=== PATIENT | male | born 1990 | race Caucasian/White ===

== ENCOUNTER → 2021-09-03 10:06 | Outpatient (BNVA) | payer OTHER, SELFPAY | PROVIDERS: PCP Pediatrics; Visit Provider Internal Medicine | DX: S61.011A Laceration without foreign body of right thumb without damage to nail, initial encounter (principal); W26.8XXA Contact with other sharp object(s), not elsewhere classified, initial encounter | CPT/HCPCS: 12001; 99204 ==

== ENCOUNTER → 2021-09-05 09:18 | Outpatient (BNVA) | payer OTHER, SELFPAY | PROVIDERS: PCP Pediatrics; Visit Provider Physician Assistant | DX: S61.011A Laceration without foreign body of right thumb without damage to nail, initial encounter (principal); W26.8XXA Contact with other sharp object(s), not elsewhere classified, initial encounter | CPT/HCPCS: 99202; 99213 ==

== ENCOUNTER 2021-09-09 07:12 | Day surgery (SDC) | payer OTHER, SELFPAY ==
--- NOTE | 2021-09-06 12:19 | P.CONAN_ITS ---
Documented by User: Wendy Hodgson NP 09/06/21 12:20 HPI - Anesthesia Eval Consult details Narrative: 31yo M for Right Thumb SPL Flexor Tendon Repair with digital nerve and other structures as indicated PMF Active Problems Active Problems: All Active Problems (Updated 09/05/21 @ 16:29 by Sara Almaguer PA-C) Ulnar nerve damage (Acute) Strain of flexor pollicis longus tendon (Acute) Past Medical History Medical History (Updated 09/09/21 @ 07:41 by Cathryn Marmolejo RN) Asthma Hx of renal calculi Surgical History Surgical History (Updated 09/09/21 @ 07:41 by Cathryn Marmolejo RN) Hx of esophagogastroduodenoscopy Social History Social History (Updated 09/05/21 @ 14:58 by Kathleen Healy [facility]) Patient Tobacco Use Status: Former Tobacco user Quit Date: 8 yrs ago Tobacco use type: Cigarette Use of substances other than those prescribed or required for medical reasons: Yes Substance Use Frequency: Occasionally Are you DNR?: No Advance Directives: No Advance Directives Information Provided: Yes Current occupational status: employed 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 Meds Allergies Allergy/AdvReac Type Severity Reaction Status Date / Time Penicillins Allergy Severe Shortness Verified 09/09/21 07:41 of Breath Home Medications Medication Instructions Recorded Confirmed Last Taken Type No Known Home Meds 09/05/21 09/05/21 Unknown History Exam Exam Date and Time: September 06, 2021 1219 Assessment and Plan Assessment Anesthesia Assessment: Chart Reviewed Documented by User: Elsa Perez MD 09/09/21 08:56 PMF Past Medical History Medical History (Updated 09/09/21 @ 07:41 by Cathryn Marmolejo RN) Asthma Hx of renal calculi Family History Family history of problems with anesthesia: No Surgical History Surgical History (Updated 09/09/21 @ 07:41 by Cathryn Marmolejo RN) Hx of esophagogastroduodenoscopy History of Problems with Anesthesia: No Social History Social History (Updated 09/05/21 @ 14:58 by TEODORO Bustamante) Patient Tobacco Use Status: Former Tobacco user Quit Date: 8 yrs ago Tobacco use type: Cigarette Use of substances other than those prescribed or required for medical reasons: Yes Substance Use Frequency: Occasionally Are you DNR?: No Advance Directives: No Advance Directives Information Provided: Yes Current occupational status: employed 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 Meds Allergies Allergy/AdvReac Type Severity Reaction Status Date / Time Penicillins Allergy Severe Shortness Verified 09/09/21 07:41 of Breath Home Medications Medication Instructions Recorded Confirmed Last Taken Type No Known Home Meds 09/05/21 09/05/21 Unknown History Exam Airway Mallampati Class: II TM Dist: >3cm Neck ROM: Full Heart: rrr Lungs: cta Assessment and Plan Assessment Anesthesia Assessment: Anesthesia Plan Discussed Final Anesthetic Review Family History of Problems with Anesthesia: No History of Problems with Anesthesia: No NPO: Yes ASA Class: II Final Preanesthetic Review: No Changes in Pt Med Stat, Meds/Allgs Chart Reviewed and Consent Obtained/Reviewed Patient Risk: Intermediate Procedure Risk: Intermediate Anesthetic Plan Anesthetic Plan: GA Disposition: Standard PACU
[2021-09-09] VITALS (8 sets, daily range): BP systolic 119–132; BP diastolic 71–89; PULSE 61–78; RESP 16–20; TEMP 36.3–36.8; O2SAT 95–98; BMI 36.7
[2021-09-09] MEDS: Lactated Ringers 1,000 ML 100 ML IVCONT (08:13)
--- NOTE | 2021-09-09 09:05 | MHC.SHP ---
Pre-Procedural Eval Section A Date of Service: 09/09/21 The patient is an INPATIENT: No Changes since office visit: No Cold of Flu in the past 2 weeks, No New Medical Problems, No Changes in Medication and No Patient answered all questions The History & Physical has been completed within 30 days and I have reviewed it.: Yes Section B Chief Complaint: Laceration without foreign body of right thumb Allergies: Allergies Allergy/AdvReac Type Severity Reaction Status Date / Time Penicillins Allergy Severe Shortness Verified 09/09/21 07:41 of Breath Plan I have reviewed the history and physical and performed a pertinent physical examination on my patient. No changes have occurred unless specified.
--- NOTE | 2021-09-09 09:05 | W.PM.OPN ---
Operative Note Operative Note Date of Service: 09/09/21 Narrative: Operative Note Narrative: Preop diagnosis: Right thumb laceration Postop diagnosis: Same Procedure: 1. Right thumb ulnar digital nerve neurolysis 2. Right flexor pollicis longus tenolysis Surgeon: Megan Collins MD Anesthesia: General Findings: Flexor pollicis longus tendon found to be intact. Radial digital nerve and ulnar digital nerve both found to be intact. Implants: None Tourniquet time: 18 minutes EBL: 5.0 ml Specimen: None Drains: None Complications: None Disposition: Brought to the recovery room in stable condition Plan: Follow-up in 10-14 days for wound check, suture removal Indications: The patient is a 31 year old man with a right thumb laceration, and possible injury of the flexor pollicis longus tendon and the ulnar digital nerve . The risks and benefits of operative treatment, including but not limited to risk of damage to blood vessels, nerves, tendons, infection, recurrence, persistent pain or numbness, incomplete resolution of preoperative symptoms, or need for further surgery were discussed with the patient and they wished to proceed with surgery. Procedure: Once consent was obtained patient was brought back to the operating suite and placed in the operating table in a supine position. . Perioperative antibiotics and anesthesia was administered by the anesthesia team. A tourniquet was applied to the proximal aspect of the right upper extremity and the limb was prepped and draped in a standard surgical fashion. The limb was elevated exsanguinated with Esmarch bandage and the tourniquet inflated to 250 mm of mercury for a total tourniquet time of 18 minutes. A Afia stye incision is made over the volar aspect of the patient's right thumb, incorporating the laceration into the exposure. The incision was made through the skin to the subcutaneous tissues using a 15. Blade. Careful dissection was then made down to the level of the flexor pollicis longus tendon using tenotomy scissors. The laceration was noted to pass deep to the radial digital neurovascular bundle. Radial digital nerve and artery to the thumb were both noted to be intact. I dissected down to the level of the flexor pollicis longus tendon. I then open the flexor tendon sheath obliquely using a 15. Blade. This then allowed me to fully evaluate the flexor tendon. The flexor tendon was brought through flexion and extension so that I could observe the tendon in the area of the laceration. I did not find any lacerations of the flexor pollicis longus tendon itself. My attention was then turned to the ulnar digital nerve to the thumb. I carefully performed a neurolysis. Evaluating the ulnar digital nerve through the zone of injury I did not see a laceration of the ulnar digital nerve, and it appears to be intact. At this point the tourniquet was deflated and hemostasis obtained with a brief period of local pressure and bipolar electrocautery. The wound was copiously irrigated with normal saline. The skin edges were reapproximated with 5-0 nylon suture. The wound was infiltrated with some 0.5% plain Marcaine for postop pain control and a sterile dressing was applied. The patient appears to have tolerated the procedure well and with no complications. All digits were well vascularized conclusion of the case.
== END 2021-09-09 12:22 ==
LOC: HO.SSS 07:13
PROVIDERS: PCP Nurse Practitioner Family; Visit Provider Orthopaedic Surgery
PROC: (CPT 64702; principal; 2021-09-09 09:10)
DX: S61.011A Laceration without foreign body of right thumb without damage to nail, initial encounter (principal); W27.8XXA Contact with other nonpowered hand tool, initial encounter; Y93.89 Activity, other specified; Y92.513 Shop (commercial) as the place of occurrence of the external cause; Y99.0 Civilian activity done for income or pay; J45.909 Unspecified asthma, uncomplicated; Z88.0 Allergy status to penicillin; Z87.891 Personal history of nicotine dependence
CPT/HCPCS: 64702; J1100; J2250; J2405; J3010

== ENCOUNTER → 2021-09-18 12:05 | Outpatient (BNVA) | payer OTHER, SELFPAY | PROVIDERS: PCP Nurse Practitioner Family; Visit Provider Orthopaedic Surgery | DX: S61.011D Laceration without foreign body of right thumb without damage to nail, subsequent encounter (principal); S64.40XD Injury of digital nerve of unspecified finger, subsequent encounter | CPT/HCPCS: 99212; J1100 ==

== ENCOUNTER → 2021-09-25 13:10 | Outpatient (BNVA) | payer OTHER, SELFPAY | PROVIDERS: PCP Nurse Practitioner Family; Visit Provider Orthopaedic Surgery | DX: S61.011D Laceration without foreign body of right thumb without damage to nail, subsequent encounter (principal); S64.40XD Injury of digital nerve of unspecified finger, subsequent encounter | CPT/HCPCS: 99212 ==

== ENCOUNTER 2021-10-04 13:30 | Outpatient (RCR) | payer OTHER, SELFPAY ==
--- NOTE | 2021-10-23 10:55 | MHC.OT.DC ---
[address] [phone] F: [phone] Occupational Therapy Discharge Note Provider: Megan Collins Diagnosis: Laceration to right thumb Injury to digital nerve Date of Surgery: 09/09/21 Date of Evaluation: 10/01/21 Date of Discharge: Treatments to Date: 2 Cancellations to Date: No Shows to Date: 2 Discharge Status: Visit Non-compliance Discharge Summary: Significant inc in thumb ROM , thumb radial abd 45 deg , MP flex 40 deg and IP flex 70 deg Improving pain at 3/10 and improving functional use while avoiding forceful pinch Pt has no scheduled OT appt. Electronically Signed By: Akiko Avelar OT CHT CLT Reviewed/agree with student documentation: N/A Therapist: Please Sign and return to therapist, thank you for your referral.
--- NOTE | 2021-11-08 10:29 | MHC.OT.DC ---
[address] [phone] F: [phone] Occupational Therapy Discharge Note Provider: Megan Collins Diagnosis: Laceration to right thumb Injury to digital nerve Date of Surgery: 09/09/21 Date of Evaluation: 10/01/21 Date of Discharge: Treatments to Date: 2 Cancellations to Date: No Shows to Date: 2 Discharge Status: Visit Non-compliance Discharge Summary: Significant inc in thumb ROM , thumb radial abd 45 deg , MP flex 40 deg and IP flex 70 deg Improving pain at 3/10 and improving functional use while avoiding forceful pinch Pt has no scheduled OT appt. Electronically Signed By: Akiko Avelar OT CHT CLT Reviewed/agree with student documentation: N/A Therapist: Please Sign and return to therapist, thank you for your referral.
== END 2021-11-08 10:29 | disposition home or self-care (01) ==
LOC: HO.OT 13:30
PROVIDERS: PCP Nurse Practitioner Family; Visit Provider Orthopaedic Surgery
DX: S61.011D Laceration without foreign body of right thumb without damage to nail, subsequent encounter (principal); S64.40XD Injury of digital nerve of unspecified finger, subsequent encounter
CPT/HCPCS: 97110; 97140; 97166

== ENCOUNTER → 2021-10-16 11:28 | Outpatient (BNVA) | payer OTHER, SELFPAY | PROVIDERS: PCP Nurse Practitioner Family; Visit Provider Orthopaedic Surgery | DX: S61.011D Laceration without foreign body of right thumb without damage to nail, subsequent encounter (principal); S64.490D Injury of digital nerve of right index finger, subsequent encounter | CPT/HCPCS: 99212 ==

== ENCOUNTER 2022-07-09 08:00 | Outpatient (REF) | payer OTHER, SELFPAY ==
[2022-07-09 11:22] LABS: Appearance Urine Clear; Color Urine Yellow; Glucose Urine UA Negative (Negative); Leukocyte Esterase Urine Negative (Negative); Nitrite Urine Negative (Negative); Specific Gravity - Urine 1.025 (1.005-1.025); Urine Blood Negative (Negative); Urine Ketones Negative (Negative); Urine Protein Negative (Neg-Trace)
[2022-07-09 11:24] LABS: MANUAL DIFF FLAG NO
[2022-07-09 11:43] LABS: Basophils Percent Auto 0.7 % (0-2); Eosinophils Absolute Auto 0.2 X10*3/uL (0.0-0.4); Eosinophils Percent Auto 3.8 % (0-4); Hematocrit 41.3 % (42.0-52.0); Hemoglobin 12.8 g/dl (14.0-18.0); Imm Gran Abs Auto 0.02 X10*3/uL (0.00-0.03); Imm Gran Pct Auto 0.4 % (0.0-0.4); Lymphocytes Absolute Auto 1.3 X10*3/uL (1.2-4.9); Lymphocytes Percent Auto 28.6 % (20-40); Mean Corpuscular Volume 77.3 fL (80.0-98.0); Mean Platelet Volume 10.5 fL (9.4-12.4); Monocytes Absolute Auto 0.4 X10*3/uL (0.1-1.2); Monocytes Percent Auto 8.9 % (2-11); Neutrophils Absolute Auto 2.6 x10*3/uL (2.0-8.3); Neutrophils Percent Auto 57.6 % (45-73); Platelet Count 196 X10*3/uL (160-400); Red Blood Count 5.34 X10*6/uL (4.60-5.80); Red Cell Distribution Width 18.5 % (11.0-16.0); White Blood Count 4.5 X10*3/uL (4.8-10.8)
[2022-07-09 12:12] LABS: Alanine Aminotransferase 32 U/L (0-40); Albumin Level 4.3 g/dL (3.5-5.0); Alkaline Phosphatase 81 U/L (39-117); Anion Gap 13 (12-20); Aspartate Amino Transferase 30 U/L (5-37); Bilirubin Total 0.8 mg/dL (0.0-1.0); Blood Urea Nitrogen 15 mg/dL (9-16); Calcium 9.4 mg/dL (8.4-10.2); Carbon Dioxide 27 mmol/L (22-29); Chloride 106 mmol/L (96-108); Cholesterol 189 mg/dL; Estimated Glomerular Filt Rate > 60; Glucose Fasting 104 mg/dL (60-99); HDL Cholesterol 37 mg/dL; LDL Cholesterol Calculated 121 mg/dl; Potassium 4.5 mmol/L (3.3-5.1); Sodium 141 mmol/L (135-145); TSH reflex Free T4 1.64 uIU/mL (0.32-4.0); Total Protein 6.7 g/dL (6.5-8.0); Triglycerides 158 mg/dL
== END 2022-07-09 08:01 | disposition home or self-care (01) ==
LOC: HO.HMGCLDS 08:00
PROVIDERS: PCP Nurse Practitioner Family; Visit Provider Nurse Practitioner Family
DX: Z00.00 Encounter for general adult medical examination without abnormal findings (principal); D64.9 Anemia, unspecified
CPT/HCPCS: 36415; 80053; 80061; 81003; 84443; 85025

== ENCOUNTER 2022-10-22 08:16 | Emergency (ER) | payer OTHER, SELFPAY ==
[2022-10-22 08:19] VITALS: BP 139/77; PULSE 78; RESP 18; TEMP 36.1; O2SAT 96; BMI 39.1
--- NOTE | 2022-10-22 08:47 | ED_ITS ---
HPI - General Adult General Chief complaint: Back Pain/Injury Stated complaint: lower back/ work injury Time Seen by Provider: 10/22/22 08:47 Source: patient Mode of arrival: ambulatory Limitations: no limitations History of Present Illness HPI narrative: The patient is a 32-year-old male with history of anemia presenting with right lower back pain radiating down right leg to his foot since . He states that he was lifting a transmission at work with another person and that person began to drop the transmission, the patient attempted to compensate for this and developed the back pain. He states that his pain radiates down his entire right leg to his foot. He reports intermittent numbness extending down his right leg to his foot, worse after periods of sitting. He has tried Tylenol, was told to avoid ibuprofen as he has a past history of ulcers. Has also tried alternating heat, icy hot patches with little relief. He denies any saddle anesthesia or bowel or bladder incontinence. Denies any fevers. Onset (ago): day(s) Location: back Radiation: extremity (right leg) Severity: severe Quality: burning Pain Consistency: constant Relieving factors: other (laying supine) Exacerbating factors: other (sitting) Associated symptoms: weakness and other (numbness/tingling) Treatments prior to arrival: heat therapy and other (Tylenol) Related Data Home Medications Medication Instructions Recorded Confirmed omeprazole 20 mg tablet,delayed 20 mg PO DAILY 07/08/22 release Previous Rx's Medication Instructions Recorded cyclobenzaprine 10 mg tablet 10 mg PO TID PRN muscle spasm #14 10/22/22 tabs lidocaine 5 % topical patch 1 patch topical DAILY #15 ea 10/22/22 prednisone 50 mg tablet 50 mg PO DAILY #5 tabs 10/22/22 Allergies Allergy/AdvReac Type Severity Reaction Status Date / Time Penicillins Allergy Severe Shortness Verified 10/22/22 08:23 of Breath Review of Systems Review of Systems: As per HPI Yes all other systems are reviewed and are negative Constitutional: Constitutional: Reports as per HPI PMFSH Past Medical History Medical History Asthma Hx of renal calculi Surgical History Hx of esophagogastroduodenoscopy Social History Social History Housing: Apartment Patient Tobacco Use Status: Former Tobacco user Quit Date: quit 8 years ago Tobacco use type: Cigarette e-Cigarette/Vaping Use: Never Used Second Hand Smoke Exposure: No service: No Current occupational status: employed Current occupation: [employer] Current occupational exposures/hazards: No Cognitive needs: No Hearing needs: No Vision needs: No Physical Exam ED Vital Signs: Vital Signs - 24 hr 10/22/22 08:19 Temperature 97.0 F Pulse Rate 78 Respiratory Rate 18 Blood Pressure 139/77 Pulse Oximetry 96 Oxygen Delivery Method Room Air BMI result Body Mass Index 39.1 Const General: cooperative, healthy appearing and no acute distress Orientation/consciousness: oriented to person, oriented to place, oriented to time and patient oriented x3 Limitations: no limitations HENMT Head: Yes normocephalic and Yes atraumatic Ears: external ears normal General nose exam: Normal external nose present Face and sinus: Yes face symmetric Mouth: oropharynx normal and moist mucous membranes Throat: Yes uvula midline Eyes Pupils: Equal, round and reactive pupils present Neck Neck: Yes normal visual inspection and Yes supple Resp Effort & Inspection: normal respiratory effort and able to speak in complete sentences Auscultation: clear to auscultation bilaterally Cardio Rate: regular rate Rhythm: regular rhythm Heart sounds: S1 normal heart sound present and S2 normal heart sound present GI Palpation (GI): Soft to palpation and nontender Auscultation: normoactive bowel sounds General: Yes no CVA tenderness Back/Spine/Pelvis Back: no CVA tenderness Thoracic/Lumbar Spine: thoracic and lumbar spine normal to inspection, No Thoracic/lumbar spine scar(s), No mass, pain with thoraco-lumbar ROM, paraspinal muscle tenderness on the right in the upper lumbar and in the mid lumbar, No thoracic spinal tenderness, No lumbar spinal tenderness and straight leg raise positive right at 30 degrees Pelvis: no pain with anterior-posterior compression and no pain with lateral compression Skin General skin exam: elasticity normal and turgor normal Neuro General: oriented to person, oriented to place, oriented to time, patient orient ed x3, gait normal, moves all extremities, no focal motor deficits and CN's II- XI intact bilaterally Cranial nerves: Yes Equal, round and reactive pupils present Cognition (Neuro): normal cognition Motor exam (neuro): Abnormal motor strength present right lower extremity flexion 4 / 5 and extension 4 / 5 Sensory Exam: Normal double simultaneous stimulation for sensation Extrem General: Yes full ROM, Yes no pedal edema and Yes no calf tenderness Psych Mental Status: mental status grossly normal Affect: normal affect Thought process: Normal thought process present Medical Decision Making Medical Decision Making MDM Narrative: The patient is a 32-year-old male with history of anemia presenting with right lower back pain radiating down right leg to his foot since after an injury at work. On exam patient is awake, A+Ox3, nontoxic appearing, has increased pain with ROM, no midline thoracic or lumbar spinal TTP, positive right SLR. Reported history and physical exam findings consistent with lumbar strain and radiculopathy. No red flag findings on physical exam. Unlikely cauda equina, fracture, malignancy, AAA, UTI/pyelonephritis. Given reported history, no indication for imaging at this time. Will discharge patient home with prescriptions for short course of prednisone, Flexeril, continue with Tylenol, alternate ice and heat, gentle stretching exercises. Will refer patient to the [facility]. Differential Diagnosis As above. Independent Historian Clinical information obtained from an independent historian. History obtained from or confirmed by: Spouse External Record Review External record reviewed: Inpatient record, Office record and Outpatient record Tests considered The following testing was considered but not selected: considered x-ray but given mechanism, not indicated Prescription Management I considered prescription management with: Pain Medication Discharge Plan Discharge Clinical Impression: Strain of lumbar paraspinal muscle, Radiculopathy of lumbar region Patient Disposition: Home, Self-Care Instructions: Acute Low Back Pain (ED), Lumbar Radiculopathy (ED), Lower Back Exercises (ED) Additional Instructions: You were evaluated in the emergency department today for back pain. Your evaluation did not show signs of medical conditions requiring emergent intervention at this time. We recommended that you use Tylenol 650mg every 6 hours as needed for pain. You have been prescribed a muscle relaxer which you may take every 8 hours as needed for spasms. You have been prescribed 5% topical lidocaine patches which you can wear for up to 12 hours in a 24 hour period. Do not apply heat directly over the patches. You have been prescribed prednisone which is a steroid to decrease inflammation. Please schedule an appointment for follow-up with your primary care physician this week for further evaluation of your symptoms. Return to the emergency department if you experience worsening back pain, difficulty walking, fevers, numbness, tingling, incontinence, groin numbness or tingling, or any other concerning symptoms. Prescriptions: New prednisone 50 mg tablet 50 mg PO DAILY Qty: 5 0RF lidocaine 5 % adhesive patch,medicated 1 patch topical DAILY Qty: 15 0RF Rx Instructions: leave on most painful area for up to 12 hrs cyclobenzaprine 10 mg tablet 10 mg PO TID PRN (Reason: muscle spasm) Qty: 14 0RF No Action omeprazole 20 mg tablet,delayed release (DR/EC) 20 mg PO DAILY Referrals: [facility] [Provider Group] Stand Alone Forms: Work/School Release
[2022-10-22 08:58] VITALS: BP 117/63; PULSE 63; RESP 15; TEMP 36.1; O2SAT 97
== END 2022-10-22 09:25 | disposition home or self-care (01) ==
PROVIDERS: Emergency Provider Student in an Organized Health Care Education/Training Program; PCP Nurse Practitioner Family
DX: S39.92XA Unspecified injury of lower back, initial encounter (principal); M54.50 Low back pain, unspecified; M54.16 Radiculopathy, lumbar region; X50.0XXA Overexertion from strenuous movement or load, initial encounter; Y93.9 Activity, unspecified; Y92.9 Unspecified place or not applicable; Y99.0 Civilian activity done for income or pay; Z87.891 Personal history of nicotine dependence
CPT/HCPCS: 99283; 99284

== ENCOUNTER → 2022-10-27 10:26 | Outpatient (BNVA) | payer OTHER, SELFPAY | PROVIDERS: PCP Nurse Practitioner Family; Visit Provider Physician Assistant Medical | DX: S39.012A Strain of muscle, fascia and tendon of lower back, initial encounter (principal); X50.0XXA Overexertion from strenuous movement or load, initial encounter | CPT/HCPCS: 72100; 99203; J1885 ==

== ENCOUNTER → 2022-11-06 10:24 | Outpatient (BNVA) | payer OTHER, SELFPAY | PROVIDERS: PCP Nurse Practitioner Family; Visit Provider Physician Assistant Medical | DX: S39.012D Strain of muscle, fascia and tendon of lower back, subsequent encounter (principal); X50.0XXD Overexertion from strenuous movement or load, subsequent encounter | CPT/HCPCS: 99213 ==

== ENCOUNTER → 2022-11-18 09:29 | Outpatient (BNVA) | payer OTHER, SELFPAY | PROVIDERS: PCP Nurse Practitioner Family; Visit Provider Physician Assistant Medical | DX: S39.012D Strain of muscle, fascia and tendon of lower back, subsequent encounter (principal); X50.0XXD Overexertion from strenuous movement or load, subsequent encounter; M54.16 Radiculopathy, lumbar region | CPT/HCPCS: 99213 ==

== ENCOUNTER → 2022-12-02 09:41 | Outpatient (BNVA) | payer OTHER, SELFPAY | PROVIDERS: PCP Nurse Practitioner Family; Visit Provider Physician Assistant Medical | DX: S39.012D Strain of muscle, fascia and tendon of lower back, subsequent encounter (principal); X50.0XXD Overexertion from strenuous movement or load, subsequent encounter | CPT/HCPCS: 99213 ==

== ENCOUNTER → 2022-12-18 09:44 | Outpatient (BNVA) | payer OTHER, SELFPAY | PROVIDERS: PCP Nurse Practitioner Family; Visit Provider Physician Assistant Medical | DX: S39.012D Strain of muscle, fascia and tendon of lower back, subsequent encounter (principal); X50.0XXD Overexertion from strenuous movement or load, subsequent encounter; M47.26 Other spondylosis with radiculopathy, lumbar region | CPT/HCPCS: 99213 ==

== ENCOUNTER → 2023-01-01 09:30 | Outpatient (BNVA) | payer OTHER, SELFPAY | PROVIDERS: PCP Nurse Practitioner Family; Visit Provider Physician Assistant Medical | DX: S39.012D Strain of muscle, fascia and tendon of lower back, subsequent encounter (principal); X50.0XXD Overexertion from strenuous movement or load, subsequent encounter; M51.16 Intervertebral disc disorders with radiculopathy, lumbar region | CPT/HCPCS: 99213 ==

== ENCOUNTER 2023-01-12 08:44 | Outpatient (AMB) | payer OTHER, SELFPAY ==
--- NOTE | 2023-01-12 08:51 | MHC.OFFVIS ---
Intake Vital Signs 01/12/23 08:52 Height 6 ft 5 in Weight 338 lb BMI 40.1 BP 134/81 Blood Pressure Location Lt brachial Position Sitting Respiration 14 Pulse 85 Pulse Source Pulse Oximeter Pulse Oximetry (%) 95 Oxygen Delivery Method Room Air Intake Visit Reasons: Lumbar Strain w/ Radiculopathy Allergies Penicillins Allergy (Severe, Verified 01/12/23 08:53) Shortness of Breath Medication List - Last Reconciled 01/12/23 by Carleen Pabon LPN gabapentin 100 mg PO TID 15 days indomethacin 50 mg PO BID omeprazole 20 mg PO DAILY HPI Lumbar Strain w/ Radiculopathy HPI Details 32-year-old male presenting today for a new patient evaluation of lumbar strain with radiculopathy. The patient reports right lower back pain radiating down his right leg to his foot since 10/16/22. He states that he was lifting a heavy weight at work with another person, and that person began to drop the weight. The patient attempted to compensate for this, felt a pop and developed sudden onset mid to low back pain. He states that his pain radiates down his entire right leg to his foot. The pain is described as constant stabbing sensation all day long and there is burning and numbness in his right buttock and thigh along with pins and needles in his right foot. Weather changes and movements make the pain worse. 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 He has tried Tylenol and was told to avoid ibuprofen as he has a past history of ulcers. Has also tried alternating heat and icy hot patches with little relief. He has had more than 12 sessions of physical therapy without any relief. He denies any saddle anesthesia or bowel or bladder incontinence. The patient has been gaining weight over the past few years due to improper diet and decreased physical activities. [facility] Medical History Asthma Hx of renal calculi Surgical History Hx of esophagogastroduodenoscopy Social History Housing: Apartment Alcohol intake: never Patient Tobacco Use Status: Former Tobacco user Quit Date: quit 8 years ago Tobacco use type: Cigarette e-Cigarette/Vaping Use: Never Used Second Hand Smoke Exposure: No service: No Current occupational status: employed Current occupation: [employer] Current occupational exposures/hazards: No Cognitive needs: No Hearing needs: No Vision needs: No Review of Systems Const All systems reviewed & are unremarkable except as noted in HPI and below Physical Exam Vital Signs: Last Vital Signs Pulse 85 01/12/23 08:52 Resp 14 01/12/23 08:52 BP 134/81 01/12/23 08:52 Pulse Ox 95 01/12/23 08:52 Oxygen Delivery Method Room Air 01/12/23 08:52 BMI result Body Mass Index 40.1 General: Appears afebrile. Alert and oriented. Mood and affect appropriate. Follows and participates in conversation appropriately. Respiratory effort is unlabored. Able to transition from sit to stand unassisted. Ambulates with bilaterally normal heel strike and toe off. Able to stand on toes and heels. Results Reviewed Results Reviewed: 12/11/22: MR LUMBAR SPINE W/O CONTRAST. FINDINGS: The conus medullaris has a normal caliber and signal intensities. The lumbar alignment is normal. No vertebral body fracture is seen. The bone marrow signals are within normal limits. T12-L1 to L2-L3 levels are normal. L3-L4 level has a small central to right extruded disc with superior migration. Mild stenosis without nerve root compression. The facet joints are mildly degenerative. No neural foramen narrowing. L4-L5 level has partial disc desiccation and a small broad-based central herniated disc. This causes mild stenosis abutting bilateral L5 nerve roots. Bilateral ligamentum flavum and facet joints are mildly hypertrophic. There is minimal bilateral neural foramen narrowing. L5-S1 level has partial disc desiccation and mild disc space narrowing. There is a small broad-based left paracentral disc protrusion. This causes mild left lateral recess stenosis impinging upon the left S1 nerve root. There is mild degenerative facet arthropathy bilaterally. No right and mild left neuroforaminal narrowing. The visualized abdominal aorta and kidneys are unremarkable. IMPRESSION: Spondylosis of lower lumbar spine as described above. Assessment & Plan Assessment & Plan (1) Lumbar radiculitis: Code(s): M54.16 - Radiculopathy, lumbar region Plan We reviewed the imaging today in the office along with strategies for rehabilitation and pain relief over the short and long terms for his ongoing intervertebral degenerative disc disease. We will proceed with Right L3 TFESI for temporary symptomatic relief of his current symptoms. Discussed the risks and benefits of the procedure with the patient in detail. All questions were answered. The patient is on board with the plan. Justification for interventional therapy: ? Patient with average pain > 6/10 ? Patient has exhausted conservative therapy including gabapentin, Tylenol, NSAIDs and physical therapy ? Patient continuing home exercise program For the time being, I encouraged him to continue with swimming and core strengthening exercises at home. Scribed for Dr. Huitron by Shaggy Thompson, medical clerk, on 01/12/2023. I, Dr. Huitron, have personally reviewed and agree with the information entered by the scribe. Coding Level of Care Code New Pt Level 4 (34929) Diagnoses Lumbar radiculitis M54.16
[2023-01-12 08:52] VITALS: BP 134/81; PULSE 85; RESP 14; O2SAT 95; BMI 40.1
== END 2023-01-12 09:38 | disposition home or self-care (01) ==
PROVIDERS: PCP Nurse Practitioner Family; Visit Provider Internal Medicine
DX: M54.16 Radiculopathy, lumbar region (principal); Z04.2 Encounter for examination and observation following work accident
CPT/HCPCS: 99204

== ENCOUNTER → 2023-01-12 08:44 | Outpatient (BNVA) | payer OTHER, SELFPAY | PROVIDERS: PCP Nurse Practitioner Family; Visit Provider Internal Medicine | DX: M54.16 Radiculopathy, lumbar region (principal) | CPT/HCPCS: 99202 ==

== ENCOUNTER → 2023-01-22 08:18 | Outpatient (BNVA) | payer OTHER, SELFPAY | PROVIDERS: PCP Nurse Practitioner Family; Visit Provider Physician Assistant Medical | DX: M54.16 Radiculopathy, lumbar region (principal) | CPT/HCPCS: 99213 ==

== ENCOUNTER 2023-02-11 06:01 | Outpatient (REF) | payer OTHER, SELFPAY ==
--- NOTE | ~2023-02-11 | FL_ITS ---
CLINICAL INDICATION: Lumbar radiculopathy. FINDINGS: Technical assistance and equipment were provided by the Department of Radiology during intraoperative fluoroscopy. 2, limited fluoroscopic spot images are submitted. A radiologist was not present during the procedure. Images demonstrate the tip of a percutaneous needle to project over the region of the lumbar facet or nerve root. Contrast is injected. The images are available for review on PACS. TOTAL FLUOROSCOPY TIME: 0.4 minutes. DOSE AREA PRODUCT: 0.09 mGy-m2 (milligray-meter squared) FL/FL guidance in treatment room IMPRESSION: Technical assistance and equipment provided by the Department of Radiology during intraoperative fluoroscopy, as above. Please see operative report for further details.
== END 2023-02-11 06:02 | disposition home or self-care (01) ==
LOC: CF 06:01
PROVIDERS: Visit Provider Internal Medicine
DX: M54.16 Radiculopathy, lumbar region (principal)
CPT/HCPCS: 64483; J1100

== ENCOUNTER 2023-02-11 09:18 | Outpatient (AMB) | payer OTHER, SELFPAY ==
[2023-02-11 09:25] VITALS: BP 126/76; PULSE 80; RESP 14; O2SAT 97
--- NOTE | 2023-02-11 09:25 | MHC.OFFVIS ---
Intake Vital Signs 02/11/23 09:25 BP 126/76 Blood Pressure Location Lt brachial Position Sitting Respiration 14 Pulse 80 Pulse Source Pulse Oximeter Pulse Oximetry (%) 97 Oxygen Delivery Method Room Air Intake Visit Reasons: right L3 TFESI Allergies Penicillins Allergy (Severe, Verified 02/11/23 09:26) Shortness of Breath HPI right L3 TFESI HPI Details Patient presents for scheduled procedure. Denies any recent cough, cold, infection, fever or other significant changes in medical history since last office visit. PFSH Medical History Asthma Hx of renal calculi Surgical History Hx of esophagogastroduodenoscopy Social History Housing: Apartment Alcohol intake: never Patient Tobacco Use Status: Former Tobacco user Quit Date: quit 8 years ago Tobacco use type: Cigarette e-Cigarette/Vaping Use: Never Used Second Hand Smoke Exposure: No service: No Current occupational status: employed Current occupation: [employer] Current occupational exposures/hazards: No Cognitive needs: No Hearing needs: No Vision needs: No Physical Exam Vital Signs: Last Vital Signs Pulse 80 02/11/23 09:25 Resp 14 02/11/23 09:25 BP 126/76 02/11/23 09:25 Pulse Ox 97 02/11/23 09:25 Oxygen Delivery Method Room Air 02/11/23 09:25 Office Procedures Details: Transforaminal epidural steroid injection, Right L3 After obtaining written consent, pre-procedure blood pressure and heart rate were stable and recorded in the nursing record. The patient was placed in the prone position on the fluoroscopy table. The lumbosacral area was prepped with chloraprep, allowed to dry and draped in sterile fashion. Using fluoroscopy, the skin overlying our target was anesthetized with 0.5% lidocaine. A 22 gauge 5 inch spinal needle was advanced to the safe triangle in the upper pole of the right L3 foramen. No paresthesias were elicited with needle placement and aspiration was negative for blood and CSF. Correct needle position was confirmed with approximately 1 ml contrast dye (Isovue 300 mg/ml) injected under real-time fluoroscopy. No evidence of vascular or intrathecal uptake was seen and there was both epidural and peripheral spread of the contrast agent. 10 mg dexamethasone plus 1.5 ml containing 0.5% lidocaine was slowly injected. The needle was flushed and removed. the same procedure was repeated for the remaining levels. The skin was cleansed and a sterile bandages were applied. The patient tolerated the procedure well and no complications were encountered. Following the procedure the patient's vital signs were stable. The patient was discharged home in good condition with post-procedural instructions. Time Out: Immediately prior to the procedure, the following was verbally confirmed that there is a signed consent form and that the correct patient, planned procedure, site and side are consistent with documentation and that necessary equipment and/or blood products are available prior to the start of the case. Complications: none EBL: <5 cc 62582 - Lumbar/Sacral Procedure code (CPT) selection complete Assessment & Plan Assessment & Plan (1) Lumbar radiculitis: Code(s): M54.16 - Radiculopathy, lumbar region Plan Patient is status post right L3 TFESI. Patient tolerated procedure well and was discharged home in stable condition with discharge instructions. All questions were answered. We will follow-up via telephone or in clinic to assess response to therapy. A follow-up appointment was made during today's visit. Orders: Orders FL guidance in treatment room Today M54.16 - Radiculopathy, lumbar region Coding Level of Care Code Procedure Only Diagnoses Lumbar radiculitis M54.16 CPT Codes Transforaminal Epidural Steroid Inj - TESI 3: 09188 - Lumbar/Sacral ([id number])
== END 2023-02-11 10:06 | disposition home or self-care (01) ==
LOC: HO.PMCPRC 09:18
PROVIDERS: PCP Nurse Practitioner Family; Visit Provider Internal Medicine
DX: M54.16 Radiculopathy, lumbar region (principal)
CPT/HCPCS: 64483

== ENCOUNTER → 2023-02-23 08:01 | Outpatient (BNVA) | payer OTHER, SELFPAY | PROVIDERS: PCP Nurse Practitioner Family; Visit Provider Physician Assistant Medical | DX: M54.16 Radiculopathy, lumbar region (principal); M51.26 Other intervertebral disc displacement, lumbar region | CPT/HCPCS: 99213 ==

== ENCOUNTER 2023-03-13 07:56 | Outpatient (AMB) | payer OTHER, SELFPAY ==
--- NOTE | 2023-03-13 07:57 | MHC.OFFVIS ---
Intake Vital Signs 03/13/23 07:59 Height 6 ft 5 in Weight 262 lb BMI 31.1 BP 129/74 Blood Pressure Location Lt brachial Position Sitting Respiration 14 Pulse 76 Pulse Source Pulse Oximeter Pulse Oximetry (%) 95 Oxygen Delivery Method Room Air Intake Visit Reasons: s/p Right L3 TFESI Allergies Penicillins Allergy (Severe, Verified 03/13/23 08:00) Shortness of Breath Medication List - Last Reconciled 03/13/23 by Carleen Pabon LPN gabapentin 100 mg orally take 1 tab in am, 1 tab mid day and 2 tabs at bed 30 days omeprazole 20 mg PO DAILY HPI s/p Right L3 TFESI HPI Details 32-year-old male who presents today to the office for a status post right L3 TFESI. The patient reports resolution of his leg pain. He states that the burning sensations in his buttocks and thighs were resolved. He states that his back pain continues to be bothersome. He has started following up with his chiropractor three times a week, with moderate benefit. He has completed 12 sessions of physical therapy in the past. He continues to perform physical therapy exercises at home. Past procedure: 02/11/23: Transforaminal epidural steroid injection, Right L3: Resolution of leg pain and symptoms, persistent back pain PFSH Medical History Asthma Hx of renal calculi Surgical History Hx of esophagogastroduodenoscopy Social History Housing: Apartment Alcohol intake: never Patient Tobacco Use Status: Former Tobacco user Quit Date: quit 8 years ago Tobacco use type: Cigarette e-Cigarette/Vaping Use: Never Used Second Hand Smoke Exposure: No service: No Current occupational status: employed Current occupation: [employer] Current occupational exposures/hazards: No Cognitive needs: No Hearing needs: No Vision needs: No Review of Systems Const All systems reviewed & are unremarkable except as noted in HPI and below Physical Exam Vital Signs: Last Vital Signs Pulse 76 03/13/23 07:59 Resp 14 03/13/23 07:59 BP 129/74 03/13/23 07:59 Pulse Ox 95 03/13/23 07:59 Oxygen Delivery Method Room Air 03/13/23 07:59 BMI result Body Mass Index 31.1 General: Appears afebrile. Alert and oriented. Mood and affect appropriate. Follows and participates in conversation appropriately. Respiratory effort is unlabored. Able to transition from sit to stand unassisted. Ambulates with bilaterally normal heel strike and toe off. Results Reviewed Results Reviewed: No imaging is available for review. Assessment & Plan Assessment & Plan (1) Lumbar radiculitis: Code(s): M54.16 - Radiculopathy, lumbar region Plan I encouraged the patient to continue home exercises, including core strengthening and stretching exercises. The patient will continue with chiropractic therapy. If pain continues to persist or worsen, we can repeat the same injection again. If axial low back pain continues to be his primary complaint, we can consider facet interventions in the future for possible spondylosis related pain. The patient will follow up as needed. Scribed for Dr. Huitron by Shaggy Thompson, medical officer, on 03/13/2023. I, Dr. Huitron, have personally reviewed and agree with the information entered by the scribe. Coding Level of Care Code Est Pt Level 3 (48611) Diagnoses Lumbar radiculitis M54.16
[2023-03-13 07:59] VITALS: BP 129/74; PULSE 76; RESP 14; O2SAT 95; BMI 31.1
== END 2023-03-13 08:58 | disposition home or self-care (01) ==
PROVIDERS: PCP Nurse Practitioner Family; Visit Provider Internal Medicine
DX: M54.16 Radiculopathy, lumbar region (principal)
CPT/HCPCS: 99213

== ENCOUNTER → 2023-03-13 07:56 | Outpatient (BNVA) | payer OTHER, SELFPAY | PROVIDERS: PCP Nurse Practitioner Family; Visit Provider Internal Medicine | DX: M54.16 Radiculopathy, lumbar region (principal); Z98.890 Other specified postprocedural states | CPT/HCPCS: 99212 ==

== ENCOUNTER → 2023-03-19 07:54 | Outpatient (BNVA) | payer OTHER, SELFPAY | PROVIDERS: PCP Nurse Practitioner Family; Visit Provider Physician Assistant Medical | DX: M54.16 Radiculopathy, lumbar region (principal); M51.26 Other intervertebral disc displacement, lumbar region | CPT/HCPCS: 99213 ==

== ENCOUNTER → 2023-04-02 07:54 | Outpatient (BNVA) | payer OTHER, SELFPAY | PROVIDERS: PCP Nurse Practitioner Family; Visit Provider Physician Assistant Medical | DX: M54.16 Radiculopathy, lumbar region (principal); M51.26 Other intervertebral disc displacement, lumbar region | CPT/HCPCS: 99213 ==

== ENCOUNTER → 2023-04-21 09:13 | Outpatient (BNVA) | payer OTHER, SELFPAY | PROVIDERS: PCP Nurse Practitioner Family; Visit Provider Physician Assistant Medical | DX: M54.16 Radiculopathy, lumbar region (principal); M51.26 Other intervertebral disc displacement, lumbar region | CPT/HCPCS: 99213 ==

== ENCOUNTER → 2023-05-04 08:26 | Outpatient (BNVA) | payer OTHER, SELFPAY | PROVIDERS: PCP Nurse Practitioner Family; Visit Provider Internal Medicine | DX: M51.27 Other intervertebral disc displacement, lumbosacral region (principal) | CPT/HCPCS: 99213 ==

== ENCOUNTER 2023-05-08 08:43 | Outpatient (AMB) | payer OTHER, SELFPAY ==
[2023-05-08 08:51] VITALS: RESP 12; BMI 30.2
--- NOTE | 2023-05-08 08:51 | A.OFFVIS_ITS ---
Intake Vital Signs 05/08/23 08:51 Height 6 ft 5 in Weight 255 lb BMI 30.2 Blood Pressure Location Lt brachial Position Sitting Respiration 12 Pulse Source Pulse Oximeter Intake Visit Reasons: WC requiring visit for TFESI Allergies Penicillins Allergy (Severe, Verified 05/08/23 08:52) Shortness of Breath Medication List - Last Reconciled 05/08/23 by Carleen Pabon LPN omeprazole 20 mg PO DAILY HPI WC requiring visit for TFESI HPI Details 32-year-old male who presents today to t he office for a follow-up. The patient has been experiencing right-sided low back pain. While his leg pain resolved after the injection, his back pain did not improve. He has mild subjective right leg weakness but denies any pain. He denies any numbness or paresthesia that was present prior to the injection. He has been performing strengthening and stretching exercises at home. Pain today is described as present in the right mid to low back region. It is constant. Always at least 4/10 and sometimes exacerbated. It limits his activities. Past procedure: 02/11/23: Transforaminal epidural steroid injection, Right L3: Resolution of leg pain and symptoms, persistent back pain PFSH Medical History Asthma Hx of renal calculi Surgical History Hx of esophagogastroduodenoscopy Social History Housing: Apartment Alcohol intake: never Patient Tobacco Use Status: Former Tobacco user Quit Date: quit 8 years ago Tobacco use type: Cigarette e-Cigarette/Vaping Use: Never Used Second Hand Smoke Exposure: No service: No Current occupational status: employed Current occupation: [employer] Current occupational exposures/hazards: No Cognitive needs: No Hearing needs: No Vision needs: No Review of Systems Const All systems reviewed & are unremarkable except as noted in HPI and below Physical Exam Vital Signs: Last Vital Signs Resp 12 05/08/23 08:51 BMI result Body Mass Index 30.2 General: Appears afebrile. Alert and oriented. Mood and affect appropriate. Follows and participates in conversation appropriately. Respiratory effort is unlabored. Able to transition from sit to stand unassisted. Ambulates with bilaterally normal heel strike and toe off. Forward lumbar flexion reproduces pain and tightness. Lumbar extension is extremely limited. Facet loading on the right reproduces pain. Results Reviewed Results Reviewed: MRI reviewed once again. Shows [id number] facet arthritis at L3-4 and L4-5 levels. Assessment & Plan Assessment & Plan (1) Lumbar spondylosis: Code(s): M47.816 - Spondylosis without myelopathy or radiculopathy, lumbar region (2) Intractable low back pain: Code(s): M54.59 - Other low back pain Plan Discussed diagnostic facet block to isolate the source of his current right- sided mid/low back pain. Will schedule him for a right L2 and L3 medial branch nerve block injection with local anesthetic only as the next step. Discussed the risks and benefits of the procedure with the patient in detail. All questions were answered. The patient is on board with the plan. Informed the patient that insurance approval is required. We will file a PA for approval and keep him updated. If he has a positive response to the diagnostic injection, I would like him to trial peripheral nerve stimulation of the same nerves for longer-term relief. Justification for interventional therapy: ? Patient with average pain > 5/10 ? Patient has exhausted conservative therapy ? Patient continuing home exercise program . History and physical consistent with facetogenic pain Scribed for Dr. Huitron by Shaggy Thompson, biomedical analytical scientist, on 05/08/2023. I, Dr. Huitron, have personally reviewed and agree with the information entered by the scribe. Coding Level of Care Code Est Pt Level 4 (29457) Diagnoses Lumbar spondylosis M47.816 Intractable low back pain M54.59
== END 2023-05-08 09:14 | disposition home or self-care (01) ==
PROVIDERS: PCP Nurse Practitioner Family; Visit Provider Internal Medicine
DX: M47.816 Spondylosis without myelopathy or radiculopathy, lumbar region (principal); M54.59 Other low back pain
CPT/HCPCS: 99214

== ENCOUNTER → 2023-05-08 08:43 | Outpatient (BNVA) | payer OTHER, SELFPAY | PROVIDERS: PCP Nurse Practitioner Family; Visit Provider Internal Medicine | DX: M47.816 Spondylosis without myelopathy or radiculopathy, lumbar region (principal); M54.59 Other low back pain | CPT/HCPCS: 99212 ==

== ENCOUNTER → 2023-05-18 08:00 | Outpatient (BNVA) | payer OTHER, SELFPAY | PROVIDERS: PCP Nurse Practitioner Family; Visit Provider Internal Medicine | DX: M51.26 Other intervertebral disc displacement, lumbar region (principal) | CPT/HCPCS: 99213 ==

== ENCOUNTER → 2023-05-27 08:01 | Outpatient (BNVA) | payer OTHER, SELFPAY | PROVIDERS: PCP Nurse Practitioner Family; Visit Provider Internal Medicine | DX: M51.16 Intervertebral disc disorders with radiculopathy, lumbar region (principal) | CPT/HCPCS: 99213 ==

== ENCOUNTER 2023-06-17 05:41 | Outpatient (REF) | payer OTHER, SELFPAY ==
--- NOTE | ~2023-06-17 | FL_ITS ---
CLINICAL INDICATION: Back pain and radiculopathy. FINDINGS: Technical assistance and equipment were provided by the Department of Radiology during intraoperative fluoroscopy for percutaneous injection. 1, limited fluoroscopic spot image is submitted. A radiologist was not present during the procedure. The image demonstrates the tips of percutaneous needles to project lateral to right lumbar pedicles. It is difficult to ascertain the exact levels due to disc incomplete anatomical landmarks on the image submitted. Contrast has been injected. The image is available for review on PACS. TOTAL FLUOROSCOPY TIME: 0.1 minutes. DOSE AREA PRODUCT: 0.1 mGy-m2 (milligray-meter squared) FL/FL guidance in treatment room IMPRESSION: Technical assistance and equipment provided by the Department of Radiology during intraoperative fluoroscopy, as above. Please see operative report for further details.
== END 2023-06-17 05:42 | disposition home or self-care (01) ==
LOC: CF 05:41
PROVIDERS: Visit Provider Internal Medicine
DX: M47.816 Spondylosis without myelopathy or radiculopathy, lumbar region (principal); M54.59 Other low back pain
CPT/HCPCS: 64493; J2795; Q9967

== ENCOUNTER 2023-06-17 07:20 | Outpatient (AMB) | payer OTHER, SELFPAY ==
[2023-06-17 07:26] VITALS: BP 118/60; PULSE 76; RESP 12; O2SAT 96
--- NOTE | 2023-06-17 07:26 | A.OFFVIS_ITS ---
Intake Vital Signs 06/17/23 07:26 06/17/23 08:12 BP 118/60 120/72 Blood Pressure Location Lt brachial Lt radial Position Sitting Sitting Respiration 12 12 Pulse 76 83 Pulse Source Pulse Oximeter Pulse Oximeter Pulse Oximetry (%) 96 96 Oxygen Delivery Method Room Air Room Air Intake Visit Reasons: Right Dx L2-L3 MBB Allergies Penicillins Allergy (Severe, Verified 06/17/23 07:26) Shortness of Breath HPI Right Dx L2-L3 MBB HPI Details Patient presents for scheduled procedure. Denies any recent cough, cold, infection, fever or other significant changes in medical history since last office visit. [facility] Medical History Asthma Hx of renal calculi Surgical History Hx of esophagogastroduodenoscopy Social History Housing: Apartment Alcohol intake: never Patient Tobacco Use Status: Former Tobacco user Quit Date: quit 8 years ago Tobacco use type: Cigarette e-Cigarette/Vaping Use: Never Used Second Hand Smoke Exposure: No service: No Current occupational status: employed Current occupation: [employer] Current occupational exposures/hazards: No Cognitive needs: No Hearing needs: No Vision needs: No Physical Exam Vital Signs: Last Vital Signs Pulse 83 06/17/23 08:12 Resp 12 06/17/23 08:12 BP 120/72 06/17/23 08:12 Pulse Ox 96 06/17/23 08:12 Oxygen Delivery Method Room Air 06/17/23 08:12 Office Procedures Lumbar/Sacral Facet Inj Details: Lumbar Medial Branch Block, Right L2, L3 medial branches (1 level, 2 nerves) After obtaining written consent, pre-procedure blood pressure and pulse were recorded and are in the nursing record for review. The patient was placed in a prone position. The respective lumbosacral area was prepped with chloraprep and draped in sterile fashion. The skin over the target medial branch nerves was anesthetized with 0.5% lidocaine. A 22 gauge 5 inch needle was inserted into the target medial branch nerve under fluoroscopic guidance. No paresthesias were elicited with needle placement and aspiration was negative for blood and CSF. Next, 0.2cc of omnipaque 180 was injected to verify positioning. Next 0.5 ml 0.5% ropivicaine was injected (0.5cc total per level). The identical procedure was performed at the remaining levels. The skin was cleansed and a sterile bandage was applied. Following the procedure the patient's vital signs were stable. The patient tolerated the procedure well and no complications were encountered. Following the procedure the patient's vital signs were stable. The patient was discharged home in good condition with post-procedural instructions. Time Out: Immediately prior to the procedure, the following was verbally confirmed that there is a signed consent form and that the correct patient, planned procedure, site and side are consistent with documentation and that necessary equipment and/or blood products are available prior to the start of the case. Complications: none EBL: <5 cc 98309 - with Fluoroscopy Procedure code (CPT) selection complete Assessment & Plan Assessment & Plan (1) Intractable low back pain: Code(s): M54.59 - Other low back pain (2) Lumbar spondylosis: Code(s): M47.816 - Spondylosis without myelopathy or radiculopathy, lumbar region Plan Patient is status post right L2 and L3 diagnostic MBBs. Patient tolerated procedure well and was discharged home in stable condition with discharge instructions. All questions were answered. We will follow-up via telephone or in clinic to assess response to therapy. A follow-up appointment was made during today's visit. Orders: Orders FL guidance in treatment room Today M47.816 - Spondylosis without myelopathy or radiculopathy, lumbar region Coding Level of Care Code Procedure Only Diagnoses Intractable low back pain M54.59 Lumbar spondylosis M47.816 CPT Codes Facet Injection-Lumbar/Sacral - CPT: 04338 - with Fluoroscopy ([id number])
[2023-06-17 08:12] VITALS: BP 120/72; PULSE 83; RESP 12; O2SAT 96
== END 2023-06-17 08:08 | disposition home or self-care (01) ==
LOC: HO.PMCPRC 07:20
PROVIDERS: PCP Nurse Practitioner Family; Visit Provider Internal Medicine
DX: M54.59 Other low back pain (principal); M47.816 Spondylosis without myelopathy or radiculopathy, lumbar region

== ENCOUNTER 2023-06-19 08:52 | Outpatient (AMB) | payer OTHER, SELFPAY ==
--- NOTE | 2023-06-19 08:53 | MHC.OFFVIS ---
Intake Vital Signs 06/19/23 08:55 Height 6 ft 5 in Weight 264 lb BMI 31.3 BP 130/67 Blood Pressure Location Lt brachial Position Sitting Respiration 12 Pulse 69 Pulse Source Pulse Oximeter Intake Visit Reasons: s/p Right L2-L3 MBB/confirmed Allergies Penicillins Allergy (Severe, Verified 06/19/23 08:56) Shortness of Breath Medication List - Last Reconciled 06/19/23 by Carleen Pabon LPN omeprazole 20 mg PO DAILY HPI s/p Right L2-L3 MBB/confirmed HPI Details 32-year-old male who presents today to the office for a status post right L2-L3 MBB. The patient reports >75% relief following the procedure. He has noticed significant improvement in his pain. He is able to lay down on the bed or sit in the normal position for prolonged period of time. He has mild pain with bending down. Past procedures: 06/17/23: Lumbar Medial Branch Block, Right L2, L3 medial branches (1 level, 2 nerves): >75% relief. 02/11/23: Transforaminal epidural steroid injection, Right L3: Resolution of leg pain and symptoms, persistent back pain PFSH Medical History Asthma Hx of renal calculi Surgical History Hx of esophagogastroduodenoscopy Social History Housing: Apartment Alcohol intake: never Patient Tobacco Use Status: Former Tobacco user Quit Date: quit 8 years ago Tobacco use type: Cigarette e-Cigarette/Vaping Use: Never Used Second Hand Smoke Exposure: No service: No Current occupational status: employed Current occupation: [employer] Current occupational exposures/hazards: No Cognitive needs: No Hearing needs: No Vision needs: No Review of Systems Const All systems reviewed & are unremarkable except as noted in HPI and below Physical Exam Vital Signs: Last Vital Signs Pulse 69 06/19/23 08:55 Resp 12 06/19/23 08:55 BP 130/67 06/19/23 08:55 BMI result Body Mass Index 31.3 General: Appears afebrile. Alert and oriented. Mood and affect appropriate. Follows and participates in conversation appropriately. Respiratory effort is unlabored. Able to transition from sit to stand unassisted. Ambulates with bilaterally normal heel strike and toe off. Results Reviewed Results Reviewed: No imaging is available for review. Assessment & Plan Assessment & Plan (1) Lumbar spondylosis: Code(s): M47.816 - Spondylosis without myelopathy or radiculopathy, lumbar region (2) Intractable low back pain: Code(s): M54.59 - Other low back pain Plan 32-year-old male with a work related injury with subsequent lumbar radiculitis that responded well to a transforaminal epidural steroid injection. He continued to have residual intractable low back pain that was not responsive to physical therapy, stretching and strengthening routine at home and transforaminal epidural steroid injection. He had an excellent diagnostic response to lumbar facet blocks at L2 and L3. 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 I would like to proceed with a course of temporary peripheral L2 medial branch nerve stimulation therapy on the right. I do not think his pain is degenerative in nature, which is why radiofrequency ablation may not be the most optimal therapy for his symptoms. I would like him to continue with a rehabilitative paradigm including physical therapy, home exercise program and restorative stimulation of the lumbar medial branch in the affected region and the associated multifidi. Patient expressed understanding and is on board with the plan Justification for interventional therapy: ? Patient with average pain > 5/10 ? Patient has exhausted conservative therapy ? Patient continuing home exercise program . History and physical consistent with intractable low back pain secondary to facetogenic pain Scribed for Dr. Huitron by Shaggy Thompson, durable medical equipment technician, on 06/19/2023. I, Dr. Huitron, have personally reviewed and agree with the information entered by the scribe. Coding Level of Care Code Est Pt Level 3 (05585) Diagnoses Lumbar spondylosis M47.816 Intractable low back pain M54.59
[2023-06-19 08:55] VITALS: BP 130/67; PULSE 69; RESP 12; BMI 31.3
== END 2023-06-19 09:11 | disposition home or self-care (01) ==
PROVIDERS: PCP Nurse Practitioner Family; Visit Provider Internal Medicine
DX: M47.816 Spondylosis without myelopathy or radiculopathy, lumbar region (principal); M54.59 Other low back pain
CPT/HCPCS: 99213

== ENCOUNTER → 2023-06-19 08:52 | Outpatient (BNVA) | payer OTHER, SELFPAY | PROVIDERS: PCP Nurse Practitioner Family; Visit Provider Internal Medicine | DX: M47.816 Spondylosis without myelopathy or radiculopathy, lumbar region (principal); M54.59 Other low back pain | CPT/HCPCS: 99212 ==

== ENCOUNTER → 2023-06-24 08:47 | Outpatient (BNVA) | payer OTHER, SELFPAY | PROVIDERS: PCP Nurse Practitioner Family; Visit Provider Internal Medicine | DX: M51.26 Other intervertebral disc displacement, lumbar region (principal) | CPT/HCPCS: 99213 ==

== ENCOUNTER → 2023-07-22 09:30 | Outpatient (BNVA) | payer OTHER, SELFPAY | PROVIDERS: PCP Nurse Practitioner Family; Visit Provider Internal Medicine | DX: M51.26 Other intervertebral disc displacement, lumbar region (principal) | CPT/HCPCS: 99213 ==

== ENCOUNTER → 2023-08-12 08:07 | Outpatient (BNVA) | payer OTHER, SELFPAY | PROVIDERS: PCP Nurse Practitioner Family; Visit Provider Internal Medicine | DX: M51.26 Other intervertebral disc displacement, lumbar region (principal) | CPT/HCPCS: 99213 ==

== ENCOUNTER → 2023-09-11 08:14 | Outpatient (BNVA) | payer OTHER, SELFPAY | PROVIDERS: PCP Nurse Practitioner Family; Visit Provider Internal Medicine | DX: M54.41 Lumbago with sciatica, right side (principal) | CPT/HCPCS: 99213 ==

== ENCOUNTER 2023-10-02 09:17 | Outpatient (AMB) | payer OTHER, SELFPAY ==
--- NOTE | 2023-10-02 09:23 | MHC.OFFVIS ---
Vital Signs 10/02/23 09:25 Height 6 ft 5 in Weight 375 lb BMI 44.5 BP 147/98 H Blood Pressure Location Lt radial Position Sitting Respiration 14 Pulse 106 H Pulse Source Pulse Oximeter Pulse Oximetry (%) 96 Oxygen Delivery Method Room Air Intake Visit Reasons: workers comp Allergies Penicillins Allergy (Severe, Verified 10/02/23 09:26) Shortness of Breath Medication List - Last Reconciled 10/02/23 by Carleen Pabon LPN gabapentin 100 mg PO .4x daily omeprazole 20 mg PO DAILY HPI HPI workers comp : Details: 33-year-old male who presents today to the office for follow-up. His worker's comp denied right lumbar PNS medial branch stimulator therapy. We filed an appeal for sprint which was also denied. He is here to discuss different treatment options with us today. He continues to have significant axial low back pain. He does report significant relief from the diagnostic lumbar facet blocks for more than 2 weeks. He is interested in repeating them to establish reproducibility for consideration of potential radiofrequency ablation of lumbar medial branch nerves. Past procedures: 06/17/23: Lumbar Medial Branch Block, Right L2, L3 medial branches (1 level, 2 nerves): >75% relief. 02/11/23: Transforaminal epidural steroid injection, Right L3: Resolution of leg pain and symptoms, persistent back pain PFSH Medical History Asthma Hx of renal calculi Surgical History Hx of esophagogastroduodenoscopy Social History Housing: Apartment Alcohol intake: never Patient Tobacco Use Status: Former Tobacco user Quit Date: quit 8 years ago Tobacco use type: Cigarette e-Cigarette/Vaping Use: Never Used Second Hand Smoke Exposure: No service: No Current occupational status: employed Current occupation: [employer] Current occupational exposures/hazards: No Cognitive needs: No Hearing needs: No Vision needs: No Review of Systems Const All systems reviewed & are unremarkable except as noted in HPI and below Physical Exam Vital Signs: Last Vital Signs Pulse 106 H 10/02/23 09:25 Resp 14 10/02/23 09:25 BP 147/98 H 10/02/23 09:25 Pulse Ox 96 10/02/23 09:25 Oxygen Delivery Method Room Air 10/02/23 09:25 BMI result Body Mass Index 44.5 General: Appears afebrile. Alert and oriented. Mood and affect appropriate. Follows and participates in conversation appropriately. Respiratory effort is unlabored. Able to transition from sit to stand unassisted. Ambulates with bilaterally normal heel strike and toe off. Lumbar range of motion is very limited. Rotation and extension is limited and produces discomfort. Results Reviewed Results Reviewed: No imaging is available for review. Assessment & Plan Assessment & Plan (1) Lumbar spondylosis: Code(s): M47.816 - Spondylosis without myelopathy or radiculopathy, lumbar region Category: Medical Plan I discussed lumbar facet PRP injections as a possible treatment option for his pain in the future. At this time we will schedule him for a right therapeutic L2-3 and L3-4 facet block injections to see if we can get longer term relief. Discussed the risks and benefits of the procedure with the patient in detail. All questions were answered. The patient is on board with the plan. Justification for interventional therapy: ? Patient with average pain > 6/10 ? Patient has exhausted conservative therapy ? Patient unable to tolerate physical therapy due to pain ? Previous injection provided > 75 % relief x > 2 weeks. . Patient has a good understanding of their pain condition and has appropriate mental and social support Scribed for Dr. Huitron by Shaggy Thompson, medical interpreter, on 10/02/2023. I, Dr. Huitron, have personally reviewed and agree with the information entered by the scribe. Coding Level of Care Code Est Pt Level 3 (60646) Diagnoses Lumbar spondylosis M47.816
[2023-10-02 09:25] VITALS: BP 147/98; PULSE 106; RESP 14; O2SAT 96; BMI 44.5
== END 2023-10-02 09:42 | disposition home or self-care (01) ==
PROVIDERS: PCP Nurse Practitioner Family; Visit Provider Internal Medicine
DX: M47.816 Spondylosis without myelopathy or radiculopathy, lumbar region (principal)
CPT/HCPCS: 99213

== ENCOUNTER → 2023-10-02 09:17 | Outpatient (BNVA) | payer OTHER, SELFPAY | PROVIDERS: PCP Nurse Practitioner Family; Visit Provider Internal Medicine | DX: M47.816 Spondylosis without myelopathy or radiculopathy, lumbar region (principal) | CPT/HCPCS: 99212 ==

== ENCOUNTER → 2023-10-09 10:27 | Outpatient (BNVA) | payer OTHER, SELFPAY | PROVIDERS: PCP Nurse Practitioner Family; Visit Provider Internal Medicine | DX: M47.816 Spondylosis without myelopathy or radiculopathy, lumbar region (principal); M51.26 Other intervertebral disc displacement, lumbar region | CPT/HCPCS: 99213 ==

== ENCOUNTER 2023-10-22 06:56 | Outpatient (REF) | payer OTHER, SELFPAY ==
--- NOTE | ~2023-10-22 | FL_ITS ---
EXAMINATION: XR FLUOROSCOPY WITH IMAGES CLINICAL INFORMATION: Spondylosis without myelopathy. COMPARISON: None available. TECHNIQUE: Fluoroscopy Supervised By: Dr. Guido Huitron. Fluoroscopy Time: 0.3 minutes. Cumulative Dose: 10.5 mGy. DAP: 0.0940 Gy-cm2. Images: 2. FINDINGS: Intraoperative fluoroscopy and spot films were performed during a procedure in the OR. [place] are seen on 2 consecutive levels on the right during transforaminal epidural steroid injection. Levels cannot be ascertained secondary to coning. Please see Dr. Guido Huitron' report for complete details. FL/FL guidance in treatment room IMPRESSION: Intraoperative fluoroscopy and spot films were obtained. Please see Dr. Guido Huitron' report for complete details.
== END 2023-10-22 06:57 | disposition home or self-care (01) ==
LOC: CF 06:56
PROVIDERS: PCP Nurse Practitioner Family; Visit Provider Internal Medicine
DX: M47.816 Spondylosis without myelopathy or radiculopathy, lumbar region (principal)
CPT/HCPCS: 64493; 64494; J1100; J2795; J3301; Q9967

== ENCOUNTER 2023-10-22 08:58 | Outpatient (AMB) | payer OTHER, SELFPAY ==
--- NOTE | 2023-10-22 09:10 | MHC.OFFVIS ---
Vital Signs 10/22/23 09:52 10/22/23 09:53 Height 6 ft 5 in Weight 375 lb BMI 44.5 BP 128/70 130/88 Blood Pressure Location Lt brachial Lt brachial Position Sitting Sitting Respiration 20 Pulse 87 Pulse Source Pulse Oximeter Pulse Oximetry (%) 96 Oxygen Delivery Method Room Air Comment Pre-Op Intake Visit Reasons: right theraputic L2-L3, L3-L4 facet inj Allergies Penicillins Allergy (Severe, Verified 10/02/23 09:26) Shortness of Breath HPI HPI right theraputic L2-L3, L3-L4 facet inj: Details: Patient presents for scheduled procedure. Denies any recent cough, cold, infection, fever or other significant changes in medical history since last office visit. PFSH Medical History Asthma Hx of renal calculi Surgical History Hx of esophagogastroduodenoscopy Social History Housing: Apartment Alcohol intake: never Patient Tobacco Use Status: Former Tobacco user Quit Date: quit 8 years ago Tobacco use type: Cigarette e-Cigarette/Vaping Use: Never Used Second Hand Smoke Exposure: No service: No Current occupational status: employed Current occupation: [employer] Current occupational exposures/hazards: No Cognitive needs: No Hearing needs: No Vision needs: No Physical Exam Vital Signs: Last Vital Signs Pulse 87 10/22/23 09:52 Resp 20 10/22/23 09:52 BP 130/88 10/22/23 09:53 Pulse Ox 96 10/22/23 09:52 Oxygen Delivery Method Room Air 10/22/23 09:52 BMI result Body Mass Index 44.5 Office Procedures Lumbar/Sacral Facet Inj Details: Lumbar Intra-articular Facet Injections, Right, L2/L3 L3/L4 After obtaining written consent, pre-procedure blood pressure and pulse were recorded and are in the nursing record for review. The patient was placed in a prone position. The respective lumbosacral area was prepped with chloraprep and draped in sterile fashion. The target facet joints were visualized using ipsilateral oblique fluoroscopy to reveal the joint line. The skin over the target facet joints was anesthetized with 0.5% lidocaine. A 22 gauge 5 inch needle with a small bend on the tip was advanced towards the target facet joint under fluoroscopic guidance until bony contact. The needle was then maneuvered and rotated until it slid into the joint slightly. No paresthesias were elicited with needle placement and aspiration was negative for blood and CSF. Next, 20 mg of Kenalog mixed with was injected (0.5cc total per level). The identical procedure was performed at the remaining levels. The skin was cleansed and a sterile bandage was applied. Following the procedure the patient's vital signs were stable. The patient tolerated the procedure well and no complications were encountered. Following the procedure the patient's vital signs were stable. The patient was discharged home in good condition with post-procedural instructions. Time Out: Immediately prior to the procedure, the following was verbally confirmed that there is a signed consent form and that the correct patient, planned procedure, site and side are consistent with documentation and that necessary equipment and/or blood products are available prior to the start of the case. Complications: none EBL: <5 cc 71712 - with Fluoroscopy 49690 - second level, with Fluoroscopy Procedure code (CPT) selection complete Assessment & Plan Assessment & Plan (1) Lumbar spondylosis: Code(s): M47.816 - Spondylosis without myelopathy or radiculopathy, lumbar region Category: Medical Plan Patient is status post right L2-3, L3-4 intra-articular steroid facet injections. Patient tolerated procedure well and was discharged home in stable condition with discharge instructions. All questions were answered. We will follow-up via telephone or in clinic to assess response to therapy. A follow-up appointment was made during today's visit. Orders: Orders FL guidance in treatment room Today M47.816 - Spondylosis without myelopathy or radiculopathy, lumbar region Coding Level of Care Code Procedure Only Diagnoses Lumbar spondylosis M47.816 CPT Codes Facet Injection-Lumbar/Sacral - CPT: 22189 - with Fluoroscopy ([id number]) Facet Injection-Lumbar/Sacral - CPT: 31373 - second level, with Fluoroscopy ([id number])
[2023-10-22 09:52] VITALS: BP 128/70; PULSE 87; RESP 20; O2SAT 96; BMI 44.5
[2023-10-22 09:53] VITALS: BP 130/88
== END 2023-10-22 09:45 | disposition home or self-care (01) ==
LOC: HO.PMCPRC 08:58
PROVIDERS: PCP Nurse Practitioner Family; Visit Provider Internal Medicine
DX: M47.816 Spondylosis without myelopathy or radiculopathy, lumbar region (principal)
CPT/HCPCS: 64493; 64494

== ENCOUNTER → 2023-11-09 09:07 | Outpatient (BNVA) | payer OTHER, SELFPAY | PROVIDERS: PCP Nurse Practitioner Family; Visit Provider Internal Medicine | DX: M51.26 Other intervertebral disc displacement, lumbar region (principal); R53.1 Weakness | CPT/HCPCS: 99213 ==

== ENCOUNTER 2023-11-20 08:11 | Outpatient (AMB) | payer OTHER, SELFPAY ==
--- NOTE | 2023-11-20 08:17 | A.OFFVIS_ITS ---
Vital Signs 11/20/23 08:18 Height 6 ft 5 in Weight 375 lb BMI 44.5 BP 133/79 Blood Pressure Location Lt brachial Position Sitting Respiration 20 Pulse 79 Pulse Source Pulse Oximeter Pulse Oximetry (%) 96 Oxygen Delivery Method Room Air Intake Visit Reasons: s/p right theraputic L2-L3, L3-L4 facet inj Intake Note: Patient states 75-80% relief. Pain Level today 1/10 Allergies Penicillins Allergy (Severe, Verified 11/20/23 08:17) Shortness of Breath HPI HPI s/p right theraputic L2-L3, L3-L4 facet inj: Details: 33-year-old male who presents today for status post right therapeutic L2-L3 and L3-L4 facet injection. He reports 80 to 90% improvement since his injection. He is more mobile and able to do more exercise. He is able to bend down without significant pain and being worried about radiofrequency ablation of the lumbar medial branch nerves. He states his pain level today is 1/10. He is compliant with his medication. [facility] Medical History Asthma Hx of renal calculi Surgical History Hx of esophagogastroduodenoscopy Social History Housing: Apartment Alcohol intake: never Patient Tobacco Use Status: Former Tobacco user Tobacco use type: Cigarette e-Cigarette/Vaping Use: Never Used Second Hand Smoke Exposure: No service: No Current occupational status: employed Current occupation: [employer] Current occupational exposures/hazards: No Cognitive needs: No Hearing needs: No Vision needs: No Physical Exam Vital Signs: Last Vital Signs Pulse 79 11/20/23 08:18 Resp 20 11/20/23 08:18 BP 133/79 11/20/23 08:18 Pulse Ox 96 11/20/23 08:18 Oxygen Delivery Method Room Air 11/20/23 08:18 BMI result Body Mass Index 44.5 General: Appears afebrile. Alert and oriented. Mood and affect appropriate. Follows and participates in conversation appropriately. Respiratory effort is unlabored. Able to transition from sit to stand unassisted. Ambulates with bilaterally normal heel strike and toe off. Assessment & Plan Assessment & Plan (1) Lumbar spondylosis: Code(s): M47.816 - Spondylosis without myelopathy or radiculopathy, lumbar region Category: Medical Plan Faisal reports 80 to 90% improvement since his injection. He is more mobile and able to do more exercise. He is able to bend down without significant pain and being worried about radiofrequency ablation of the lumbar medial branch nerves and I counseled him that we would not undertake that unless it was necessary. Advised him to consider similar injection if his pain returns. Advised him to continue core exercises and strengthening. Scribed for Dr. Huitron by Bryant Parmar, medical illustrator, on 11/20/2023. I, Dr. Huitron, have personally reviewed and agree with the information entered by the scribe Coding Level of Care Code Est Pt Level 3 (80708) Diagnoses Lumbar spondylosis M47.816
[2023-11-20 08:18] VITALS: BP 133/79; PULSE 79; RESP 20; O2SAT 96; BMI 44.5
== END 2023-11-20 08:47 | disposition home or self-care (01) ==
PROVIDERS: PCP Nurse Practitioner Family; Visit Provider Internal Medicine
DX: M47.816 Spondylosis without myelopathy or radiculopathy, lumbar region (principal)
CPT/HCPCS: 99213

== ENCOUNTER → 2023-11-20 08:11 | Outpatient (BNVA) | payer OTHER, SELFPAY | PROVIDERS: PCP Nurse Practitioner Family; Visit Provider Internal Medicine | DX: M47.816 Spondylosis without myelopathy or radiculopathy, lumbar region (principal); Z98.890 Other specified postprocedural states | CPT/HCPCS: 99212 ==

== ENCOUNTER → 2023-12-09 08:09 | Outpatient (BNVA) | payer OTHER, SELFPAY | PROVIDERS: PCP Nurse Practitioner Family; Visit Provider Internal Medicine | DX: M51.27 Other intervertebral disc displacement, lumbosacral region (principal) | CPT/HCPCS: 99213 ==

== ENCOUNTER → 2023-12-25 13:11 | Outpatient (BNVA) | payer OTHER, SELFPAY | PROVIDERS: Visit Provider Physician Assistant Medical | DX: M51.26 Other intervertebral disc displacement, lumbar region (principal) | CPT/HCPCS: 99213 ==

== ENCOUNTER → 2024-01-20 09:17 | Outpatient (BNVA) | payer OTHER, SELFPAY | PROVIDERS: Visit Provider Internal Medicine | DX: M51.26 Other intervertebral disc displacement, lumbar region (principal) | CPT/HCPCS: 99213 ==

== ENCOUNTER → 2024-02-15 10:19 | Outpatient (BNVA) | payer OTHER, SELFPAY | PROVIDERS: Visit Provider Internal Medicine | DX: S39.012D Strain of muscle, fascia and tendon of lower back, subsequent encounter (principal); X50.0XXD Overexertion from strenuous movement or load, subsequent encounter | CPT/HCPCS: 99213 ==

== ENCOUNTER 2024-02-26 09:00 | Outpatient (RCR) | payer OTHER, SELFPAY ==
--- NOTE | 2022-11-28 12:39 | MHC.PT.OD ---
[facility] [place] [facility] [place] [facility] [place] [facility] [address] Lucas Tavera [address] [phone] F: [phone] F: [phone] F: [phone] F: [phone] Physical Therapy Daily Note Diagnosis: Right lumbar radiculopathy PT eval and treat, date sahil referral 10/27/22, 1-3x/week x 3-12 weeks signed by Ayanna Osborne PA-C Date of Surgery: Date of Evaluation: 11/04/22 Date of Treatment: 11/28/22 Treatments to Date: Cancellations to Date: No Shows to Date: Authorized Visits: 11 Insurance End Date: Precautions/ Contraindications:Hx work injury DOI 10/16/22 Subjective: Im up almost every hour. Im had a hard time waking up this morning. The pain in the leg is more in the front today. Pain Score and Location: 6 R SIDE LB, Objective Flowsheet: Tests & Measures Last week: Unable to perform an independent heel raise on the right LE. Partial range on the right when attempting bilaterally. (+) SLR persists, (+) slump test Decreased DTRS patellar and achilles on R (1+) vs left patellar 2+, achilles 1+ on L. Trial of lateral shift correction on wall in the office with (+) response x 5 reps with cues for L knee flexion and R shoulder extension, L side of hip towards wall (issued for HEP program today). Exercises Held bike due to sx flare Prone lying with MHP/SELECT UNIT LUMBAR SETTING x 20 minutes intensity 10.5mA, prone on elbows x TO 20 SEC HOLD today, sec hold alternating up/down, minutes >PU (ON FORE ARMS) X Prone hip extension x 2 sets 10R. Trial of L>R SL posotion, pt initially expressing relief with trial of R SL with pillow between knees (trialed this position in effort to assess centralization of LE sx). Pt encouraged to perform a walking routine avoidance pf prolonged sitting Held taping due to skin irritation self care HEP program. Modalities Prone over 2.5 pillows for SELECT ESTIM intensity 10.5 ma x 10 minutes with MHP lumbar with 8# weight cuff over lumbar region followed by prone series during session. Assessment: 11/28/22 Pt reports significant sleep disturbance, reports use of meloxicam with limited gains. Therapist is inquiring with [facility]'s Physician Crew Leader/Control Room Operator opinion of a prescribing a second round of a steroid taper to address inflammation duet to ongoing severity and start of plateauing status related to positional tolerance? Pt did express some relief with initial steroid taper but also did express some mild side effects so unsure of provider has alternative treatment to trial? Pt expressing intolerance for tylenol>ibuprofen with history of stomach upset. Pt exhibits antalgic gait with decreased stance R LE. Some questionable improvement in R calf raise with UE support compared to start of care. Pt has appeared to exhibit some limited centralization of sx, today reports anterior/posterior R thigh sx, no longer denies sx below the knee. Held manual therapy and taping this date (completed yesterday) due to slight skin irritation noted today with pt removing at home prior to session. Outline of tape present on skin with reddened appearance, no cut or open areas. Pt to see [facility] on 12/02/22. Pt reports has not received any update or approval regarding MRI for his lumbar spine. Pt intolerance for trial of supine/hooklying. Pt is not a candidate for mechanical lumbar traction at this time due to severity of R LE sx with attempt of position. Long axis distraction was attempted a few visits ago however poor response was exhibibited. Some short term limited relief with prone>extension based exercises. Poor tolerance for flexion. SLR persists R LE. Thank you for this referral. 11/27/22: Pt exhibits erythema response to thoracic paraspinals with IASTM, some tenderness reported with manual pressure to R lumbar with IASTM (reduced pressure with positive outcomes). 11/25/22 Pt expressing R LE sx to the lateral thigh this date, therapist encouraged low impact gentle walking program on soft track material in effort to ease sx. Pt benefited from cues of reducing trunk flexion with seated stretches this date (use of table vs pball due to degree of flexion). Awaiting approval for MRI. Pt continues to exhibit neural tension sx, reports taking meloxicam with limited relief. 11/21/22: Pt was seen by [facility] provider, reports an MRI has been ordered. Pt remains OOW. Trial of long axis distraction was completed (increased sx in lumbar x 3 minutes) so this was D/C. Trial of L SL for a few minutes eased sx proximal thigh R LE. Pt encouraged to trial this activity at home. Pt was educated re: goal of centralization vs peripheralization with task. 11/18/22: Pt had poor tolerance for sitting/trial of flexion tasks today compared to last week, bike was not tolerated, 3 minutes into activity (+) radiating LE sx to height of ankle (compared to last week was able to do). He does present with antalgic gait R LE decreased stance, with improvement no longer presents with lateral shift. Pt reports he was stuck in traffic over the weekend, stuck sitting for several hours from [place] traffic which could have flared micha sx. Pt encouraged to stretch HS in standing as long as not symptomatic in the spine. (+) SLR persists. Pt will continue to benefit from skilled PT services at a frequency of 3x/week x 6 additional weeks as of today (awaiting updated script from [facility]), he continues use of tylenol 2x daily which eases his sx. Please advise and update a new prescription for support of ongoing PT. THank you for this referral. PT NS for appt 11/17/22 at 8:00am. A VM was left on patient's phone requesting callback. Patient is usually always on time for appts so this is unlike him (pt did report feeling achy all over last session so therapist was questioning if patient is sick). 11/17/22: Pt has attended 6 session of PT to date (including initial intake with start of care 11/04/22, DOI 10/16/22. Since starting therapy, patient has demonstrated some improvement in posturing (intially R SB and flexed) now more consistently erect and neutral spine. He exhibits a reduction/centralization in his R LE sx (from height of heel to height of knee). He has responded positively to prone series of exercise program. Last session, he came in reporting global body aches but denied presence of a fever. He continues to express central lumbar and expresses radiating R lateral hip sx which. Pt continues to express at (+) SLR, decreased R LE DTRS, and has weakness in his R calf. Pt would likely benefit from referral to foot specialist and or MRI imaging to assess status due to ongoing severity, amount of load/ mechanism of injury, and observed weakness in R LE. Pt reports load he flexed with was approx 400lbs at time of injury. Pt has been very compliant with his HEP. He reports use of tylenol twice daily (poor tolerance for ibuprofen due to stomach upset). 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 11/14/22 Pt presents expressing increased soreness/ache overall today. Decreased tolerance for flexion stretches, held bike today due to this. Pt encouraged to limit sitting, complete walking, prone series HEP at home through the weekend. 11/11/22: Improving tolerance for mobility, initiated the bike today with positive response and good tolerance. 11/10/22: Pt expressing worsening lower back pain in general yesterday was 01/15, today reports somewhat better 10/15. Pt expressing centralization of sx to upper region of R thigh, verbalizes improved ability to move R ankle and push off calf with ambulation post manual/ TENS/prone series. Pt encouraged to iniitated core stabilization with ambulation and swing arms when ambulating to reduce tissue tension in upper body. Improved ability to perform a R sided calf raise today post treatment session completed. Trialed an alternative form of ROCKTAPE (fanning approach for R LQ in effort to increase tissue extensibility/ease sx. Pt exhibits (+) sx neural tension, presents with significant trunk flexion, R side lateral shift, antalgic gait reports has been experiencing R LE sx radiating to R thigh>R knee in recent days. Correction attempted for lateral shift in office (L hip toward side of wall with pillow) with good outcomes (added for HEP). Pt exhibits weakness of heel raise on the R LE and has diminished patellar>achilles reflexes on the R LE. Pt encouraged to continue walking short distances often, perform prone series short reps repeatedly throughout the day, and refrain from seated flexion positions. Encouraged hydration, low reps of stretches, and educated re: monitoring LE sx with exercises. Some short term relief is reported with taping. Seated trunk flexion stretches were shown and added for program. (educated to avoid standing trunk flexion). Pt to expresses he has been taking 500mg Tylenol 2x/ daily (due to stomach upset with ibuprofen). Remains OOW. To see [facility] again on 11/18/22 (reports being seen yesterday). Due to (+) SLR, mechanism of load with injury, and weakness in R LE patient may benefit from MRI to screen for HNP/cause of lumbar radiculopathy. Brief positional trial of flexion was attempted in office with feet up on physioball in [facility] to assess response but was D/C due to surge of sx in lumbar with attempt. Concern for disc herniation of L5/S1 based on examination. PT Plan: Await MRI approval> [facility] on 12/02/22 3x/week x 6 weeks , EXT PROGRAM, MODALITIES, CORE WORK BODY [facility] Short Term Goals: 1. Initiate self care/ HEP. 2. Improve lumbar flexion AROM by 50%. 3. Centralize R LE sx radiating to height of hip/lumbar. 4. Strength hip abduction 5/5 bilaterally. 5. Strength hip extension 5/5 bilaterally. Assistant Field Hockey Coach Goals: 1. Initiate self care/ HEP. 2. Improve lumbar flexion AROM by 50%. 3. Centralize R LE sx radiating to height of hip/lumbar. 4. Strength hip abduction 5/5 bilaterally. 5. Strength hip extension 5/5 bilaterally. Electronically signed by: Merry Stanley, PT, DPT
--- NOTE | 2022-12-02 08:33 | MHC.PT.OD ---
[facility] [place] [facility] [place] [facility] [place] Office [address] Lucas Tavera [address] [phone] F: [phone] F: [phone] F: [phone] F: [phone] Physical Therapy Daily Note Diagnosis: Right lumbar radiculopathy PT eval and treat, date sahil referral 10/27/22, 1-3x/week x 3-12 weeks signed by Ayanna Osborne PA-C Date of Surgery: Date of Evaluation: 11/04/22 Date of Treatment: 12/01/22 Treatments to Date: Cancellations to Date: No Shows to Date: Authorized Visits: 12 Insurance End Date: Precautions/ Contraindications:Hx work injury DOI 10/16/22 Subjective: I feel like Im flat lining in regard to my progress. I go to the [facility] again tomorrow. I still have not heard anything about my MRI. Pain Score and Location: 6 R SIDE LB, Objective Flowsheet: Tests & Measures Flexion 30% with surge of posterior knee pain reported (worse ROM than evaluation and last week's ability), lumbar extension 30%, lumbar side-bending L 50%, lumbar side-bending R 30% (+) SLR persists R LE at 40 degrees, weakness in R plantar flexion persists, antalgic gait and guarded movements. Pt requires UE support to rise from seated position and is unable to lie supine>SL>prone for any prolonged period. Last week: Unable to perform an independent heel raise on the right LE. Partial range on the right when attempting bilaterally. (+) SLR persists, (+) slump test Decreased DTRS patellar and achilles on R (1+) vs left patellar 2+, achilles 1+ on L. Trial of lateral shift correction on wall in the office with (+) response x 5 reps with cues for L knee flexion and R shoulder extension, L side of hip towards wall (issued for HEP program today). Exercises Held bike due to sx flare Prone lying with MHP/SELECT UNIT LUMBAR SETTING x 20 minutes intensity 10.5mA, prone on elbows x TO 20 SEC HOLD today, sec hold alternating up/down, minutes >PU (ON FORE ARMS) X Prone hip extension x 2 sets 10R NEW SX PT EXPRESSING ONSET OF PLANTAR PARATHESIAS Trial of L>R SL position, pt initially expressing relief. ROCKTAPE I strips two thoracic>lumbar region with third I strip across midline. IASTM to thoracic>lumbar paraspinals in effort to increase tissue extensibility with erythema response. self care HEP program. Modalities Prone over 2.5 pillows for SELECT ESTIM intensity 10.5 ma x 10 minutes with MHP lumbar with 8# weight cuff over lumbar region followed by prone series during session. Assessment: 12/01/22: Pt has attended 12 sessions of PT to date, exhibiting some level of plateau in his progress since start of care. Pt expressing worsening R LE sx today, reports near constant pain in his knee at start of session. He reports he is seeing the [facility] tomorrow. He continues to exhibit a SLR and is awaiting an MRI approval. Therapist is inquiring with FÁTIMA about potential of trialing another steroid taper in effort to ease inflammation/ R LE sx. 11/28/22 Pt reports significant sleep disturbance, reports use of meloxicam with limited gains. Therapist is inquiring with [employer]'s Physician Pipeline Construction Inspector opinion of a prescribing a second round of a steroid taper to address inflammation duet to ongoing severity and start of plateauing status related to positional tolerance? Pt did express some relief with initial steroid taper but also did express some mild side effects so unsure of provider has alternative treatment to trial? Pt expressing intolerance for tylenol>ibuprofen with history of stomach upset. Pt exhibits antalgic gait with decreased stance R LE. Some questionable improvement in R calf raise with UE support compared to start of care. Pt has appeared to exhibit some limited centralization of sx, today reports anterior/posterior R thigh sx, no longer denies sx below the knee. Held manual therapy and taping this date (completed yesterday) due to slight skin irritation noted today with pt removing at home prior to session. Outline of tape present on skin with reddened appearance, no cut or open areas. Pt to see [facility] on 12/02/22. Pt reports has not received any update or approval regarding MRI for his lumbar spine. Pt intolerance for trial of supine/hooklying. Pt is not a candidate for mechanical lumbar traction at this time due to severity of R LE sx with attempt of position. Long axis distraction was attempted a few visits ago however poor response was exhibibited. Some short term limited relief with prone>extension based exercises. Poor tolerance for flexion. SLR persists R LE. Thank you for this referral. 11/27/22: Pt exhibits erythema response to thoracic paraspinals with IASTM, some tenderness reported with manual pressure to R lumbar with IASTM (reduced pressure with positive outcomes). 11/25/22 Pt expressing R LE sx to the lateral thigh this date, therapist encouraged low impact gentle walking program on soft track material in effort to ease sx. Pt benefited from cues of reducing trunk flexion with seated stretches this date (use of table vs pball due to degree of flexion). Awaiting approval for MRI. Pt continues to exhibit neural tension sx, reports taking meloxicam with limited relief. 11/21/22: Pt was seen by [facility] provider, reports an MRI has been ordered. Pt remains OOW. Trial of long axis distraction was completed (increased sx in lumbar x 3 minutes) so this was D/C. Trial of L SL for a few minutes eased sx proximal thigh R LE. Pt encouraged to trial this activity at home. Pt was educated re: goal of centralization vs peripheralization with task. 11/18/22: Pt had poor tolerance for sitting/trial of flexion tasks today compared to last week, bike was not tolerated, 3 minutes into activity (+) radiating LE sx to height of ankle (compared to last week was able to do). He does present with antalgic gait R LE decreased stance, with improvement no longer presents with lateral shift. Pt reports he was stuck in traffic over the weekend, stuck sitting for several hours from [place] traffic which could have flared micha sx. Pt encouraged to stretch HS in standing as long as not symptomatic in the spine. (+) SLR persists. Pt will continue to benefit from skilled PT services at a frequency of 3x/week x 6 additional weeks as of today (awaiting updated script from [facility]), he continues use of tylenol 2x daily which eases his sx. Please advise and update a new prescription for support of ongoing PT. THank you for this referral. PT NS for appt 11/17/22 at 8:00am. A VM was left on patient's phone requesting callback. Patient is usually always on time for appts so this is unlike him (pt did report feeling achy all over last session so therapist was questioning if patient is sick). 11/17/22: Pt has attended 6 session of PT to date (including initial intake with start of care 11/04/22, DOI 10/16/22. Since starting therapy, patient has demonstrated some improvement in posturing (intially R SB and flexed) now more consistently erect and neutral spine. He exhibits a reduction/centralization in his R LE sx (from height of heel to height of knee). He has responded positively to prone series of exercise program. Last session, he came in reporting global body aches but denied presence of a fever. He continues to express central lumbar and expresses radiating R lateral hip sx which. Pt continues to express at (+) SLR, decreased R LE DTRS, and has weakness in his R calf. Pt would likely benefit from referral to podiatric foot and ankle specialist and or MRI imaging to assess status due to ongoing severity, amount of load/ mechanism of injury, and observed weakness in R LE. Pt reports load he flexed with was approx 400lbs at time of injury. Pt has been very compliant with his HEP. He reports use of tylenol twice daily (poor tolerance for ibuprofen due to stomach upset). 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 11/14/22 Pt presents expressing increased soreness/ache overall today. Decreased tolerance for flexion stretches, held bike today due to this. Pt encouraged to limit sitting, complete walking, prone series HEP at home through the weekend. 11/11/22: Improving tolerance for mobility, initiated the bike today with positive response and good tolerance. 11/10/22: Pt expressing worsening lower back pain in general yesterday was 8/10, today reports somewhat better 5/10. Pt expressing centralization of sx to upper region of R thigh, verbalizes improved ability to move R ankle and push off calf with ambulation post manual/ TENS/prone series. Pt encouraged to iniitated core stabilization with ambulation and swing arms when ambulating to reduce tissue tension in upper body. Improved ability to perform a R sided calf raise today post treatment session completed. Trialed an alternative form of ROCKTAPE (fanning approach for R LQ in effort to increase tissue extensibility/ease sx. Pt exhibits (+) sx neural tension, presents with significant trunk flexion, R side lateral shift, antalgic gait reports has been experiencing R LE sx radiating to R thigh>R knee in recent days. Correction attempted for lateral shift in office (L hip toward side of wall with pillow) with good outcomes (added for HEP). Pt exhibits weakness of heel raise on the R LE and has diminished patellar>achilles reflexes on the R LE. Pt encouraged to continue walking short distances often, perform prone series short reps repeatedly throughout the day, and refrain from seated flexion positions. Encouraged hydration, low reps of stretches, and educated re: monitoring LE sx with exercises. Some short term relief is reported with taping. Seated trunk flexion stretches were shown and added for program. (educated to avoid standing trunk flexion). Pt to expresses he has been taking 500mg Tylenol 2x/ daily (due to stomach upset with ibuprofen). Remains OOW. To see [facility] again on 11/18/22 (reports being seen yesterday). Due to (+) SLR, mechanism of load with injury, and weakness in R LE patient may benefit from MRI to screen for HNP/cause of lumbar radiculopathy. Brief positional trial of flexion [facility] to [facility] response but was D/C due to surge of sx in lumbar with attempt. Concern for disc herniation of L5/S1 based on examination. PT Plan: Await MRI approval> [facility] on 12/02/22 3x/week x 6 weeks , EXT PROGRAM, MODALITIES, CORE WORK BODY [facility] Short Term Goals: 1. Initiate self care/ HEP. 2. Improve lumbar flexion AROM by 50%. 3. Centralize R LE sx radiating to height of hip/lumbar. 4. Strength hip abduction 5/5 bilaterally. 5. Strength hip extension 5/5 bilaterally. 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 Initiate self care/ HEP. 2. Improve lumbar flexion AROM by 50%. 3. Centralize R LE sx radiating to height of hip/lumbar. 4. Strength hip abduction 5/5 bilaterally. 5. Strength hip extension 5/5 bilaterally. Electronically signed by: Merry Stanley, PT, DPT
--- NOTE | 2022-12-16 08:35 | MHC.PT.OD ---
[facility] [place] [facility] [place] [facility] [address] Lucas Tavera [address] [phone] F: [phone] F: [phone] F: [phone] F: [phone] Physical Therapy Daily Note Diagnosis: Right lumbar radiculopathy PT eval and treat, date sahil referral 10/27/22, 1-3x/week x 3-12 weeks signed by Ayanna Osborne PA-C Date of Surgery: Date of Evaluation: 11/04/22 Date of Treatment: 12/16/22 Treatments to Date: Cancellations to Date: No Shows to Date: Authorized Visits: 16 Insurance End Date: Precautions/ Contraindications:Hx work injury DOI 10/16/22 Subjective: Sore today. I would like to hold the traction. Pain Score and Location: 6 R SIDE LB, Objective Flowsheet: Tests & Measures Back pain 08/15, R LE 4-510 sx VAS 12/12/22: Pt able to perform AROM lumbar flexion with hands grossly 8 inches from floor, some pain upon return from flexion, Lumbar extension 75% AROM, L sidebending stretch pattern for the R lumbar, R sidebending no longer painful. Pt unable to perform I heel raise single R LE solo but can perform bilaterally near full ROM with UE support for balance. Improved tolerance for hook-lying. Trial of p-ball positional traction activity today with education for home. Flexion 30% with surge of posterior knee pain reported (worse ROM than evaluation and last week's ability), lumbar extension 30%, lumbar side-bending L 50%, lumbar side-bending R 30% (+) SLR persists R LE at 40 degrees, weakness in R plantar flexion persists, antalgic gait and guarded movements. Pt requires UE support to rise from seated position and is unable to lie supine>SL>prone for any prolonged period. Last week: Unable to perform an independent heel raise on the right LE. Partial range on the right when attempting bilaterally. (+) SLR persists, (+) slump test Decreased DTRS patellar and achilles on R (1+) vs left patellar 2+, achilles 1+ on L. Trial of lateral shift correction on wall in the office with (+) response x 5 reps with cues for L knee flexion and R shoulder extension, L side of hip towards wall (issued for HEP program today). Exercises Seat #13 on [employer] bike x 10 minutes level 3.5 intensity for resistance, Started session with MHP/estim combo select unit intensity 8.5 mA lumbar setting x 10 minutes for prone lying>prone press up x 30 sec hold alternating, standing extension x 10 sec hold x 5R, standing HS stretch x 4R x 20 sec hold, review of modified trunk stretches for tolerance with and without pball. Prone for manual IASTM to thoracic>lumbar parapinals in effort to increase tissue extensibility/reduce pain. Post bike this date. self care HEP program. Modalities Trial hooklying with feet on pball- not tolerated (increased pressure anterior thighs with pball elevation) reduced to large wedge with better improvement x 5 minutes pre traction to assess positional tolerance. Election to trial mechanical lumbar traction set in 6 pumps pressure with feet on wedge x 4 minutes (pt began to express sx in his back 4 minutes into treatment so this was stopped). Pt expressed no significant change post trial. Traction treatment time included set-up/position/ and education re: goals of use. Assessment: 12/16/22: Pt expressing overall improvement in back pain compared to yesterday. Holding traction treatment due to poor tolerance after four minutes. Pt encouraged for trial of hooklying position at home. Pt to see [facility] following today's visit. 12/15/22: Pt demonstrating somewhat improved tolerance for lying supine/hooklying. Pt expressing ongoing sx R thigh with intermittent radiating heel sx. Trial of mechanical traction attempted however this was stopped at 4 minutes into treatment due to reports of increasing onset of lower back pain. Pt to see [facility] tomorrow. 12/12/22 Pt had MRI completed yesterday, reports intolerance for lying supine during screening. He continues to exhibit ongoing antalgic gait with decreased calf strength on the R LE. Today he appeared to exhibit new tolerance for p-ball positional traction and was encouraged to trial this at home through the weekend. Possible goal of trialing mechanical lumbar traction next week if positional tolerance continues. Relief reported with newly prescribed addition of gabapentin. 12/02/22 Pt exhibits worsening LE sx today, was previously obtaining relief with prone lying>IVETT however today sx unchanged with positional change. Pt to see [facility] later this morning. 12/01/22: Pt has attended 12 sessions of PT to date, exhibiting some level of plateau in his progress since start of care. Pt expressing worsening R LE sx today, reports near constant pain in his knee at start of session. He reports he is seeing the [facility] tomorrow. He continues to exhibit a SLR and is awaiting an MRI approval. Therapist is inquiring with FÁTIMA about potential of trialing another steroid taper in effort to ease inflammation/ R LE sx. 11/28/22 Pt reports significant sleep disturbance, reports use of meloxicam with limited gains. Therapist is inquiring with [facility]'s Physician Horn Player opinion of a prescribing a second round of a steroid taper to address inflammation duet to ongoing severity and start of plateauing status related to positional tolerance? Pt did express some relief with initial steroid taper but also did express some mild side effects so unsure of provider has alternative treatment to trial? Pt expressing intolerance for tylenol>ibuprofen with history of stomach upset. Pt exhibits antalgic gait with decreased stance R LE. Some questionable improvement in R calf raise with UE support compared to start of care. Pt has appeared to exhibit some limited centralization of sx, today reports anterior/posterior R thigh sx, no longer denies sx below the knee. Held manual therapy and taping this date (completed yesterday) due to slight skin irritation noted today with pt removing at home prior to session. Outline of tape present on skin with reddened appearance, no cut or open areas. Pt to see [facility] on 12/02/22. Pt reports has not received any update or approval regarding MRI for his lumbar spine. Pt intolerance for trial of supine/hooklying. Pt is not a candidate for mechanical lumbar traction at this time due to severity of R LE sx with attempt of position. Long axis distraction was attempted a few visits ago however poor response was exhibibited. Some short term limited relief with prone>extension based exercises. Poor tolerance for flexion. SLR persists R LE. Thank you for this referral. 11/27/22: Pt exhibits erythema response to thoracic paraspinals with IASTM, some tenderness reported with manual pressure to R lumbar with IASTM (reduced pressure with positive outcomes). 11/25/22 Pt expressing R LE sx to the lateral thigh this date, therapist encouraged low impact gentle walking program on soft track material in effort to ease sx. Pt benefited from cues of reducing trunk flexion with seated stretches this date (use of table vs pball due to degree of flexion). Awaiting approval for MRI. Pt continues to exhibit neural tension sx, reports taking meloxicam with limited relief. 11/21/22: Pt was seen by [facility] provider, reports an MRI has been ordered. Pt remains OOW. Trial of long axis distraction was completed (increased sx in lumbar x 3 minutes) so this was D/C. Trial of L SL for a few minutes eased sx proximal thigh R LE. Pt encouraged to trial this activity at home. Pt was educated re: goal of centralization vs peripheralization with task. 11/18/22: Pt had poor tolerance for sitting/trial of flexion tasks today compared to last week, bike was not tolerated, 3 minutes into activity (+) radiating LE sx to height of ankle (compared to last week was able to do). He does present with antalgic gait R LE decreased stance, with improvement no longer presents with lateral shift. Pt reports he was stuck in traffic over the weekend, stuck sitting for several hours from [place] traffic which could have flared micha sx. Pt encouraged to stretch HS in standing as long as not symptomatic in the spine. (+) SLR persists. Pt will continue to benefit from skilled PT services at a frequency of 3x/week x 6 additional weeks as of today (awaiting updated script from [facility]), he continues use of tylenol 2x daily which eases his sx. Please advise and update a new prescription for support of ongoing PT. THank you for this referral. PT NS for appt 11/17/22 at 8:00am. A VM was left on patient's phone requesting callback. Patient is usually always on time for appts so this is unlike him (pt did report feeling achy all over last session so therapist was questioning if patient is sick). 11/17/22: Pt has attended 6 session of PT to date (including initial intake with start of care 11/04/22, DOI 10/16/22. Since starting therapy, patient has demonstrated some improvement in posturing (intially R SB and flexed) now more consistently erect and neutral spine. He exhibits a reduction/centralization in his R LE sx (from height of heel to height of knee). He has responded positively to prone series of exercise program. Last session, he came in reporting global body aches but denied presence of a fever. He continues to express central lumbar and expresses radiating R lateral hip sx which. Pt continues to express at (+) SLR, decreased R LE DTRS, and has weakness in his R calf. Pt would likely benefit from referral to export specialist and or MRI imaging to assess status due to ongoing severity, amount of load/ mechanism of injury, and observed weakness in R LE. Pt reports load he flexed with was approx 400lbs at time of injury. Pt has been very compliant with his HEP. He reports use of tylenol twice daily (poor tolerance for ibuprofen due to stomach upset). 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 11/14/22 Pt presents expressing increased soreness/ache overall today. Decreased tolerance for flexion stretches, held bike today due to this. Pt encouraged to limit sitting, complete walking, prone series HEP at home through the weekend. 11/11/22: Improving tolerance for mobility, initiated the bike today with positive response and good tolerance. 11/10/22: Pt expressing worsening lower back pain in general yesterday was 8/10, today reports somewhat better /10. Pt expressing centralization of sx to upper region of R thigh, verbalizes improved ability to move R ankle and push off calf with ambulation post manual/ TENS/prone series. Pt encouraged to iniitated core stabilization with ambulation and swing arms when ambulating to reduce tissue tension in upper body. Improved ability to perform a R sided calf raise today post treatment session completed. Trialed an alternative form of ROCKTAPE (fanning approach for R LQ in effort to increase tissue extensibility/ease sx. Pt exhibits (+) sx neural tension, presents with significant trunk flexion, R side lateral shift, antalgic gait reports has been experiencing R LE sx radiating to R thigh>R knee in recent days. Correction attempted for lateral shift in office (L hip toward side of wall with pillow) with good outcomes (added for HEP). Pt exhibits weakness of heel raise on the R LE and has diminished patellar>achilles reflexes on the R LE. Pt encouraged to continue walking short distances often, perform prone series short reps repeatedly throughout the day, and refrain from seated flexion positions. Encouraged hydration, low reps of stretches, and educated re: monitoring LE sx with exercises. Some short term relief is reported with taping. Seated trunk flexion stretches were shown and added for program. (educated to avoid standing trunk flexion). Pt to expresses he has been taking 500mg Tylenol 2x/ daily (due to stomach upset with ibuprofen). Remains OOW. To see [facility] again on 11/18/22 (reports being seen yesterday). Due to (+) SLR, mechanism of load with injury, and weakness in R LE patient may benefit from MRI to screen for HNP/cause of lumbar radiculopathy. Brief positional trial of flexion was attempted in office with feet up on physioball in [facility] to assess response but was D/C due to surge of sx in lumbar with attempt. Concern for disc herniation of L5/S1 based on examination. PT Plan: Await MRI approval> [facility] on 12/02/22 3x/week x 6 weeks , EXT PROGRAM, MODALITIES, CORE WORK BODY [facility] Short Term Goals: 1. Initiate self care/ HEP. 2. Improve lumbar flexion AROM by 50%. 3. Centralize R LE sx radiating to height of hip/lumbar. 4. Strength hip abduction 5/5 bilaterally. 5. Strength hip extension 5/5 bilaterally. Associate Professor Of History Goals: 1. Initiate self care/ HEP. 2. Improve lumbar flexion AROM by 50%. 3. Centralize R LE sx radiating to height of hip/lumbar. 4. Strength hip abduction 5/5 bilaterally. 5. Strength hip extension 5/5 bilaterally. Electronically signed by: Merry Stanley, PT, DPT
--- NOTE | 2023-01-12 10:56 | MHC.PT.RE ---
[facility] [place] [facility] [place] [facility] [place] Office [address] Lucas Tavera [address] [phone] F: [phone] F: [phone] F: [phone] F: [phone] Physical Therapy Re-evaluation Diagnosis: Right lumbar radiculopathy PT eval and treat, date sahil referral 10/27/22, 1-3x/week x 3-12 weeks signed by Ayanna Osborne PA-C Date of Surgery: Date of Evaluation: 11/04/22 Treatments to Date: Cancellations to Date: No Shows to Date: Subjective: I see pain management on Thursday. Its been sore in my back and down the R side of my thigh, nothing below the knee. Pain Score: 6 Pain Location: R SIDE LB, Objective Measures: 01/02/23: VAS scale 5/10, R LE parathesias plantar surface of foot lateral thigh also rated intensity 5/10, numbness/tingling. Prone hip extension L LE fair tolerance no report of sx, R LE. Sleep disturbance reports waking every hour, improved tolerance for ability lie supine where before he was unable. Standing posture: Lateral shift with L shoulder leaning to the left, R hip pelvis leaning to the right, unable to perform I heel raise on the R, able to perform R heel raise partial range with first able to perform 75% ROM with progressive weakness thereafter after 4 reps. Lumbar trunk flexion 30 degrees, lumbar extension 20 degrees, L SB 50%, R SB 25% with sx radiating to R lumbar, SLR (+) R, SLUMP (+) R, seated hip flexion L 4+/5, R 3+/5, L knee extension 5/5, R knee extension reports of sx R lumbar unable to perform full extension, L DF 5/5, R DF 3+/5 weakness with MMT, L great toe ext 5/5, R great toe ext 3+/5, L hip abduction 5/5, R hip abd 3/5 sx R lumber. Pt expressed relief with attempt of standing correction for R lateral shift L hip to wall for hip thrusts) x 10 sec hold x 5R. Reviewed this as part of HEP program. Elected to hold traction today due to surge of R LE sx and postural shift. 12/12/22: Pt able to perform AROM lumbar flexion with hands grossly 8 inches from floor, some pain upon return from flexion, Lumbar extension 75% AROM, L sidebending stretch pattern for the R lumbar, R sidebending no longer painful. Pt unable to perform I heel raise single R LE solo but can perform bilaterally near full ROM with UE support for balance. Improved tolerance for hook-lying. Trial of p-ball positional traction activity today with education for home. Flexion 30% with surge of posterior knee pain reported (worse ROM than evaluation and last week's ability), lumbar extension 30%, lumbar side-bending L 50%, lumbar side-bending R 30% (+) SLR persists R LE at 40 degrees, weakness in R plantar flexion persists, antalgic gait and guarded movements. Pt requires UE support to rise from seated position and is unable to lie supine>SL>prone for any prolonged period. Last week: Unable to perform an independent heel raise on the right LE. Partial range on the right when attempting bilaterally. (+) SLR persists, (+) slump test Decreased DTRS patellar and achilles on R (1+) vs left patellar 2+, achilles 1+ on L. Trial of lateral shift correction on wall in the office with (+) response x 5 reps with cues for L knee flexion and R shoulder extension, L side of hip towards wall (issued for HEP program today). Assessment: 01/06/23: Pt expressing he has a new consult with pain management on Thursday, on 01/12/23. Continue traction and lumbar stabilization program. 01/02/23: Pt has attended 22 sessions of PT since start of care 11/04/22; DOI work related injury of 10/16/22. Pt presents to the office today expressing he had new onset of sudden inability to get out of bed on Thursday, which was a poor change for his mobility over the past few weeks. He expresses ongoing R LE parathesias along R lateral thigh radiating to plantar surface of heel on the R. Pt was seen by the [facility] for a follow up yesterday, was prescribed new medication indocmethacin 50mg to be taken once daily, (taken off meloxicam) continues to take gabapentin. Pt was noted to present to the office exhibiting increased lateral shift (a worsened posture he has had for the past few visits (was near neutral standing with increased trunk flexion from prior). Since time of last reassessment, pt was started on mechanical lumbar traction and has had a few sessions of this with what appeared to be overall positive gains and some centralization of his R heel sx. He expresses several hours of relief with traction in the past with recurrence of his sx. Pt has made ups/downs with start of this treatment, however traction was held today due to his worsening posture (shifted L lateral shoulder lean, R hip to the R). Pt is awaiting a consult in pain management for 01/12/23. Post session and after reviewing/re-implenting lateral shift corrective exercises/taping/tens/extension based tasks he appeared neutral in his trunk posturing. He was educated to continue performance of prone based exercises with low rep high frequency of lateral shift correction (completing these first). Pt will continue to benefit from receiving skilled PT services at a frequency of 2x/week x 6 weeks in conjunction with treatment/consult of pain management. Pt is highly compliant in his HEP and does verbalize ongoing gains/improvement/reduction in sx with traction treatment this date. Pt will benefit from ongoing PT 2x/week x 6 weeks to address impairments, implement HEP, and restore functional mobility to resume PLOF. 12/30/22: Some relief with traction reported, intermittent R heel parathesias. 12/26/22: Pt expressing some relief with lumbar traction this date, pt expressing centralization of lateral L thigh/LE. 12/23/22 Pt expressing increased lumbar back pain today, reports near constant R lateral sx. 12/22/22: Pt expressing lateral L sided thigh sx today, reports additional soreness on the bottom of his feet which could be from wearing crocs on his feet this past weekend, I feel like Im walking on concrete. (Improved post rolling out plantar fascia seated in the office today) Pt requesting to hold mechanical lumbar traction due to soreness which he stated lasted most of the weekend following last session. Its more in my back today. Pt to obtain report from [facility] for [facility] to review (has not yet obtained appt with pain management). 12/16/22: Pt expressing overall improvement in back pain compared to yesterday. Holding traction treatment due to poor tolerance after four minutes. Pt encouraged for trial of hooklying position at home. Pt to see [facility] following today's visit. 12/15/22: Pt demonstrating somewhat improved tolerance for lying supine/hooklying. Pt expressing ongoing sx R thigh with intermittent radiating heel sx. Trial of mechanical traction attempted however this was stopped at 4 minutes into treatment due to reports of increasing onset of lower back pain. Pt to see [facility] tomorrow. 12/12/22 Pt had MRI completed yesterday, reports intolerance for lying supine during screening. He continues to exhibit ongoing antalgic gait with decreased calf strength on the R LE. Today he appeared to exhibit new tolerance for p-ball positional traction and was encouraged to trial this at home through the weekend. Possible goal of trialing mechanical lumbar traction next week if positional tolerance continues. Relief reported with newly prescribed addition of gabapentin. 12/02/22 Pt exhibits worsening LE sx today, was previously obtaining relief with prone lying>IVETT however today sx unchanged with positional change. Pt to see [facility] later this morning. 12/01/22: Pt has attended 12 sessions of PT to date, exhibiting some level of plateau in his progress since start of care. Pt expressing worsening R LE sx today, reports near constant pain in his knee at start of session. He reports he is seeing the [facility] tomorrow. He continues to exhibit a SLR and is awaiting an MRI approval. Therapist is inquiring with FÁTIMA about potential of trialing another steroid taper in effort to ease inflammation/ R LE sx. 11/28/22 Pt reports significant sleep disturbance, reports use of meloxicam with limited gains. Therapist is inquiring with [facility]'s Physician File System Installer opinion of a prescribing a second round of a steroid taper to address inflammation duet to ongoing severity and start of plateauing status related to positional tolerance? Pt did express some relief with initial steroid taper but also did express some mild side effects so unsure of provider has alternative treatment to trial? Pt expressing intolerance for tylenol>ibuprofen with history of stomach upset. Pt exhibits antalgic gait with decreased stance R LE. Some questionable improvement in R calf raise with UE support compared to start of care. Pt has appeared to exhibit some limited centralization of sx, today reports anterior/posterior R thigh sx, no longer denies sx below the knee. Held manual therapy and taping this date (completed yesterday) due to slight skin irritation noted today with pt removing at home prior to session. Outline of tape present on skin with reddened appearance, no cut or open areas. Pt to see [facility] on 12/02/22. Pt reports has not received any update or approval regarding MRI for his lumbar spine. Pt intolerance for trial of supine/hooklying. Pt is not a candidate for mechanical lumbar traction at this time due to severity of R LE sx with attempt of position. Long axis distraction was attempted a few visits ago however poor response was exhibibited. Some short term limited relief with prone>extension based exercises. Poor tolerance for flexion. SLR persists R LE. Thank you for this referral. 11/27/22: Pt exhibits erythema response to thoracic paraspinals with IASTM, some tenderness reported with manual pressure to R lumbar with IASTM (reduced pressure with positive outcomes). 11/25/22 Pt expressing R LE sx to the lateral thigh this date, therapist encouraged low impact gentle walking program on soft track material in effort to ease sx. Pt benefited from cues of reducing trunk flexion with seated stretches this date (use of table vs pball due to degree of flexion). Awaiting approval for MRI. Pt continues to exhibit neural tension sx, reports taking meloxicam with limited relief. 11/21/22: Pt was seen by [facility] provider, reports an MRI has been ordered. Pt remains OOW. Trial of long axis distraction was completed (increased sx in lumbar x 3 minutes) so this was D/C. Trial of L SL for a few minutes eased sx proximal thigh R LE. Pt encouraged to trial this activity at home. Pt was educated re: goal of centralization vs peripheralization with task. 11/18/22: Pt had poor tolerance for sitting/trial of flexion tasks today compared to last week, bike was not tolerated, 3 minutes into activity (+) radiating LE sx to height of ankle (compared to last week was able to do). He does present with antalgic gait R LE decreased stance, with improvement no longer presents with lateral shift. Pt reports he was stuck in traffic over the weekend, stuck sitting for several hours from triathalon traffic which could have flared micha sx. Pt encouraged to stretch HS in standing as long as not symptomatic in the spine. (+) SLR persists. Pt will continue to benefit from skilled PT services at a frequency of 3x/week x 6 additional weeks as of today (awaiting updated script from [facility]), he continues use of tylenol 2x daily which eases his sx. Please advise and update a new prescription for support of ongoing PT. THank you for this referral. PT NS for appt 11/17/22 at 8:00am. A VM was left on patient's phone requesting callback. Patient is usually always on time for appts so this is unlike him (pt did report feeling achy all over last session so therapist was questioning if patient is sick). 11/17/22: Pt has attended 6 session of PT to date (including initial intake with start of care 11/04/22, DOI 10/16/22. Since starting therapy, patient has demonstrated some improvement in posturing (intially R SB and flexed) now more consistently erect and neutral spine. He exhibits a reduction/centralization in his R LE sx (from height of heel to height of knee). He has responded positively to prone series of exercise program. Last session, he came in reporting global body aches but denied presence of a fever. He continues to express central lumbar and expresses radiating R lateral hip sx which. Pt continues to express at (+) SLR, decreased R LE DTRS, and has weakness in his R calf. Pt would likely benefit from referral to wan support specialist and or MRI imaging to assess status due to ongoing severity, amount of load/ mechanism of injury, and observed weakness in R LE. Pt reports load he flexed with was approx 400lbs at time of injury. Pt has been very compliant with his HEP. He reports use of tylenol twice daily (poor tolerance for ibuprofen due to stomach upset). 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 11/14/22 Pt presents expressing increased soreness/ache overall today. Decreased tolerance for flexion stretches, held bike today due to this. Pt encouraged to limit sitting, complete walking, prone series HEP at home through the weekend. 11/11/22: Improving tolerance for mobility, initiated the bike today with positive response and good tolerance. 11/10/22: Pt expressing worsening lower back pain in general yesterday was 8/10, today reports somewhat better 5/10. Pt expressing centralization of sx to upper region of R thigh, verbalizes improved ability to move R ankle and push off calf with ambulation post manual/ TENS/prone series. Pt encouraged to iniitated core stabilization with ambulation and swing arms when ambulating to reduce tissue tension in upper body. Improved ability to perform a R sided calf raise today post treatment session completed. Trialed an alternative form of ROCKTAPE (fanning approach for R LQ in effort to increase tissue extensibility/ease sx. Pt exhibits (+) sx neural tension, presents with significant trunk flexion, R side lateral shift, antalgic gait reports has been experiencing R LE sx radiating to R thigh>R knee in recent days. Correction attempted for lateral shift in office (L hip toward side of wall with pillow) with good outcomes (added for HEP). Pt exhibits weakness of heel raise on the R LE and has diminished patellar>achilles reflexes on the R LE. Pt encouraged to continue walking short distances often, perform prone series short reps repeatedly throughout the day, and refrain from seated flexion positions. Encouraged hydration, low reps of stretches, and educated re: monitoring LE sx with exercises. Some short term relief is reported with taping. Seated trunk flexion stretches were shown and added for program. (educated to avoid standing trunk flexion). Pt to expresses he has been taking 500mg Tylenol 2x/ daily (due to stomach upset with ibuprofen). Remains OOW. To see [facility] again on 11/18/22 (reports being seen yesterday). Due to (+) SLR, mechanism of load with injury, and weakness in R LE patient may benefit from MRI to screen for HNP/cause of lumbar radiculopathy. Brief positional trial of flexion was attempted in office with feet up on physioball in [facility] to assess response but was D/C due to surge of sx in lumbar with attempt. Concern for disc herniation of L5/S1 based on examination. Short Term Goals: 1. Initiate self care/ HEP. 2. Improve lumbar flexion AROM by 50%. 3. Centralize R LE sx radiating to height of hip/lumbar. 4. Strength hip abduction 5/5 bilaterally. 5. Strength hip extension 5/5 bilaterally. Beef Pluck Trimmer Goals: 1. Initiate self care/ HEP. 2. Improve lumbar flexion AROM by 50%. 3. Centralize R LE sx radiating to height of hip/lumbar. 4. Strength hip abduction 5/5 bilaterally. 5. Strength hip extension 5/5 bilaterally. Frequency and Duration: The patient will be seen 3x/week x 4 weeks Treatment Plan: Therapeutic Exercise Dynamic Therapeutic Activities Neuromuscular Re-ed Manual Therapies Joint Mobilization Taping Gait Home Exercise Program Patient Education Electrical Stimulation Ultrasound Mechanical Traction Hot or Cold Pack Other Reviewed/ Agreed with Student Documentation: Therapist: Electronically signed by: Please sign and return to therapist. Thank you for your referral.
--- NOTE | 2023-01-12 10:58 | MHC.PT.EP ---
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 Pt exhbits signs and sx consistent with L5 lumbar radiculopathy. Pt exhibits (+) SLR on the R LE, impaired lumbar, hip AROM, impaired strength of core stabilizers, and impaired gait pattern. Pt would benefit from attending skilled PT services at a frequency 3x/week x 6 weeks to address impairments, implement HEP, and restore functional mobility tolerance to resume PLOF. Pt expressing at baseline was riding mountain bike several times weekly and rode [place] recreationally (no history of radicular sx, reports first time sustaining a back injury.) Positive response to trial of prone based extension with TAC with combo MHP and TENS post evaluation. Pt was also trialed with ROCKTAPE supportive strapping (two I strips parallel lumbar thoracic paraspinals with third I strip pulling from medial>laterally in effort to decompress central lumbar sx with positive response observed post assessment. Pt was educated re: goals of centralization, goals of improving posture, reducing sx, and HEP program to start at home. Pt encouraged to walk often, refrain from sitting for prolonged periods. Frequency and Duration: The patient will be seen 3x/week x 4 weeks Short Term Goals: 1. Initiate self care/ HEP. 2. Improve lumbar flexion AROM by 50%. 3. Centralize R LE sx radiating to height of hip/lumbar. 4. Strength hip abduction 5/5 bilaterally. 5. Strength hip extension 5/5 bilaterally. Penitentiary Goals: 1. Initiate self care/ HEP. 2. Improve lumbar flexion AROM by 50%. 3. Centralize R LE sx radiating to height of hip/lumbar. 4. Strength hip abduction 5/5 bilaterally. 5. Strength hip extension 5/5 bilaterally. Treatment Plan: Modalities to reduce pain, spasms and effusion. Manual therapy to restore motion and function. Therapeutic exercise to improve strength and flexibility. Neuromuscular re-education for posture and balance. Therapeutic activities to return to functional activities of daily living. Electronically signed by: Merry Stanley PT, DPT Please sign and return to therapist. Thank you for your referral.
--- NOTE | 2023-12-15 15:21 | MHC.PT.OD ---
[facility] Office [place] [facility] [place] [facility] [address] Lucas Tavera [address] [phone] F: [phone] F: [phone] F: [phone] F: [phone] Physical Therapy Daily Note Diagnosis: Right lumbar radiculopathy PT eval and treat, date sahil referral 10/27/22, 1-3x/week x 3-12 weeks signed by Ayanna Osborne PA-C New order 12/29/23: DJD HNP L5/S1 date if injury 10/16/22 Much improved : Pre return to work PT 1 year OOW Eval and treat; frequency 2-3x/week x [address] Gaytan 12/29 Date of Surgery: Date of Evaluation: 11/04/22 Date of Treatment: 12/15/23 Treatments to Date: Cancellations to Date: No Shows to Date: Authorized Visits: Insurance End Date: Precautions/ Contraindications:Hx work injury DOI 10/16/22 Subjective: Pt presents with new order from [facility], states goal of RTW full duty set for 12/28/23. Pt scheduled to see [facility] on 12/25/23. Pain Score and Location: 6 R SIDE LB, Objective Flowsheet: Tests & Measures Pt was last seen 01/23/23 and ultimately was referred to pain management. Pt had MRI (+) HNP R L5/S1. Pt received history of three injections, first one February 28. Pt states all of the parathesias in the R LEG. Pt had a second injection three months later, no therapy, no real change. Was still OOW at that time. Pt was placed on gabapentin 400mg (AM, lunch, dinner). A month an a half ago received a third injection. Pt believes sx was L2/L3 injection with dropping down to 300mg gabapentin total per day. OOW. Has not had therapy. Pt was checking in with Dr. Gaytan/[place] [facility] at [facility] throughout. Pt was seen by Dr. Huitron recently. Pt states his biggest sx is pain in his lumbar area (when bending over to was his hands). Pt states he does not believe he is on a lifting restriction. Pt has been seeing a chiropractor for the past few months. [facility] [address] [place] [address] Office Visit Report Signed Patient: Maxime Werner#: [id number] : 1990Acct:[id number] Age/Sex: 33 / MADM/SER Date: 11/20/23 Loc: HO.PMCADM/SER Time:810 Attending Provider: Guido Huitron MD cc: Tomás Harrell~ Vital Signs 11/20/23 08:18 Height 6 ft 5 in Weight 375 lb BMI 44.5 BP 133/79 Blood Pressure Location Lt brachial Position Sitting Respiration 20 Pulse 79 Pulse Source Pulse Oximeter Pulse Oximetry (%) 96 Oxygen Delivery Method Room Air Intake Visit Reasons: s/p right theraputic L2-L3, L3-L4 facet inj Intake Note: Patient states 75-80% relief. Pain Level today 1/10 Allergies Penicillins Allergy (Severe, Verified 11/20/23 08:17) Shortness of Breath HPI HPI s/p right theraputic L2-L3, L3-L4 facet inj: Details: 33-year-old male who presents today for status post right therapeutic L2-L3 and L3-L4 facet injection. He reports 80 to 90% improvement since his injection. He is more mobile and able to do more exercise. He is able to bend down without significant pain and being worried about radiofrequency ablation of the lumbar medial branch nerves. He states his pain level today is 1/10. He is compliant with his medication. [facility] Medical History Asthma Hx of renal calculi Surgical History Hx of esophagogastroduodenoscopy Social History Housing: Apartment Alcohol intake: never Patient Tobacco Use Status: Former Tobacco user Tobacco use type: Cigarette e-Cigarette/Vaping Use: Never Used Second Hand Smoke Exposure: No service: No Current occupational status: employed Current occupation: [employer] Current occupational exposures/hazards: No Cognitive needs: No Hearing needs: No Vision needs: No Physical Exam Vital Signs: Last Vital Signs Pulse 79 11/20/23 08:18 Resp 20 11/20/23 08:18 BP 133/79 11/20/23 08:18 Pulse Ox 96 11/20/23 08:18 Oxygen Delivery Method Room Air 11/20/23 08:18 BMI result Body Mass Index 44.5 General: Appears afebrile. Alert and oriented. Mood and affect appropriate. Follows and participates in conversation appropriately. Respiratory effort is unlabored. Able to transition from sit to stand unassisted. Ambulates with bilaterally normal heel strike and toe off. Assessment & Plan Assessment & Plan (1) Lumbar spondylosis: Code(s): M47.816 - Spondylosis without myelopathy or radiculopathy, lumbar region Category: Medical Plan Faisal reports 80 to 90% improvement since his injection. He is more mobile and able to do more exercise. He is able to bend down without significant pain and being worried about radiofrequency ablation of the lumbar medial branch nerves and I counseled him that we would not undertake that unless it was necessary. Advised him to consider similar injection if his pain returns. Advised him to continue core exercises and strengthening. Scribed for Dr. Huitron by Bryant Parmar, biomedical photographer, on 11/20/2023. I, Dr. Huitron, have personally reviewed and agree with the information entered by the scribe Coding Level of Care Code Est Pt Level 3 (59601) Diagnoses Lumbar spondylosis M47.816 Documented By:Guido Huitron MD11/20/23 0817 Exercises Pt is 6'5'' and weighs 365lbs L handed. SX R lumbar 0-1/10 at rest. Pt states he has been walking a mile plus everday. Pt able to lie on stomach and all positions unrestricted. Lumbar flexion able to reach. Lumbar side-bending slight stretch expressed with left side-bending compared to right side-bending. Has been doing sumo squats, walking program, prone press-ups, doing hooklying bugs, doing leg raises single. Pt has limited education of what or how to progress himself and will benefit from higher level stabilization to progress along to prepare for higher level work demands. MOvement analysis screen: L SLS > 20 seconds. Pt able to perform SLS without valgus collapse, R SLS slightly less stability observed compared to L side (_) valgus collapse of knee, fatigue/shakiness observed in R LE with R SLS stability with knee flexion, no back pain reported. Functional squat mild with 2-3/10 R side, better tolerance for sum o squat style. Half kneeling L leg kneeling (able to complete). R knee kneeling weakness , pt expressing some weakness/challenge with rising up from that position. Review of rising up from the ground as if getting up from a creeper to simulate mechanics position- poor mechanics pt noted to flex upward educated and reviewed the benefit of a log roll technique for bed mobility as well. Hook-lying bridge no sx in the lumbar. Trial of prone plank on forearms (unable to hold >3 seconds significant weakness with prone plank. L plantar flexion strength 5/5, R plantar flexion strength not full compared to left unable to perform >3 I heel raises with loss of height noted at third one. Unable to perform >3 reps of plantar flexion. L hip flexion 5/5, R hip flexion 5/5, L knee extension 5/5, R knee extension 5/5 in seated knee extension, half-kneeling on L knee able to perform, knee flexion 4/5 L>R, DF 5/5 B, IV/EV 5/5 B L/E. R knee rising from a half kneel and unable to perform without loss of stability, pt expressing weakness, (+) lumbar instability testing, prone hip extension 4-/5, R 4-/5. Pt exhibits negative slump and SLR. HS flexibility 170 on R, 168 on L. Pt educated re: progression of current stabilization program. Pt able to perform bridge wtihout sx. Edgar test (-) for rectus and hip flexor bilaterally, SL hip abduction compensated by hip flexion movement. Hook-lying HEP: bug reviewed with opposite foot touching the ground x 2 sets 10R, SLR into flexion x with cues for abdominal control, trial of prone plank poor tolerance, unable to perform. SL hip abduction x 2sets 10R with core stab activation. DTRs patellar and achilles diminshed L LE, R LE patella/achilles 1+ SLR (+) R LE Pt exhibits significant antalgic gait at start of session: Poor stance R LE with increased trunk flexion, left lateral trink lean, R hips shifted to the right, hesitation of R hip flexion, decreased heel strike increased weight shift to the L LE. Post lateral shift correction pt noted to leave office more upright and expressed relief of pressure in his lower back. Seated trunk flexion two I strips with two I strips laterally on the right with two additional support for R gluteal hip extension lift/supoprt with education for removal. Taping applied. Education for removal. self care HEP program. Modalities Hook-lying for mechanical lumbar traction with wedge under knees with pressure pull 18# x 10 minutes in effort to reduce back pain and improve LE sx. Assessment: 12/15/23: Pt was last seen in PT on 01/23/23. Since that time pt has received a series of three injections in his back. Pt presents today after seeing [facility] with new referral dated, with tentative RTW goal of 12/28/23. Pt exhibits poor core strength, decreased functional movements for kneeling, half-kneeling and rising from that position. In order to best prepare for full level RTW demands patient will be best served in education and progression of a dynamic lumbar stabilization program. Pt has been educated in progression of sx this date. Pt would also likely benefit from a lifting/work conditioning program upon completion and progression of a dynamic stabilization program. See Last reassessment note on 01/06/23. Further PT authorization was denied by . Pt was awaiting referral in pain management on 01/12/23. D/C due to lack of insurance authorization/plateaued status. 01/06/23: Pt expressing he has a new consult with pain management on Thursday, on 01/12/23. Continue traction and lumbar stabilization program. 01/02/23: Pt has attended 22 sessions of PT since start of care 11/04/22; DOI work related injury of 10/16/22. Pt presents to the office today expressing he had new onset of sudden inability to get out of bed on Thursday, which was a poor change for his mobility over the past few weeks. He expresses ongoing R LE parathesias along R lateral thigh radiating to plantar surface of heel on the R. Pt was seen by the [facility] for a follow up yesterday, was prescribed new medication indocmethacin 50mg to be taken once daily, (taken off meloxicam) continues to take gabapentin. Pt was noted to present to the office exhibiting increased lateral shift (a worsened posture he has had for the past few visits (was near neutral standing with increased trunk flexion from prior). Since time of last reassessment, pt was started on mechanical lumbar traction and has had a few sessions of this with what appeared to be overall positive gains and some centralization of his R heel sx. He expresses several hours of relief with traction in the past with recurrence of his sx. Pt has made ups/downs with start of this treatment, however traction was held today due to his worsening posture (shifted L lateral shoulder lean, R hip to the R). Pt is awaiting a consult in pain management for 01/12/23. Post session and after reviewing/re-implenting lateral shift corrective exercises/taping/tens/extension based tasks he appeared neutral in his trunk posturing. He was educated to continue performance of prone based exercises with low rep high frequency of lateral shift correction (completing these first). Pt will continue to benefit from receiving skilled PT services at a frequency of 2x/week x 6 weeks in conjunction with treatment/consult of pain management. Pt is highly compliant in his HEP and does verbalize ongoing gains/improvement/reduction in sx with traction treatment this date. Pt will benefit from ongoing PT 2x/week x 6 weeks to address impairments, implement HEP, and restore functional mobility to resume PLOF. 12/30/22: Some relief with traction reported, intermittent R heel parathesias. 12/26/22: Pt expressing some relief with lumbar traction this date, pt expressing centralization of lateral L thigh/LE. 12/23/22 Pt expressing increased lumbar back pain today, reports near constant R lateral sx. 12/22/22: Pt expressing lateral L sided thigh sx today, reports additional soreness on the bottom of his feet which could be from wearing crocs on his feet this past weekend, I feel like Im walking on concrete. (Improved post rolling out plantar fascia seated in the office today) Pt requesting to hold mechanical lumbar traction due to soreness which he stated lasted most of the weekend following last session. Its more in my back today. Pt to obtain report from [facility] for [facility] to review (has not yet obtained appt with pain management). 12/16/22: Pt expressing overall improvement in back pain compared to yesterday. Holding traction treatment due to poor tolerance after four minutes. Pt encouraged for trial of hooklying position at home. Pt to see [facility] following today's visit. 12/15/22: Pt demonstrating somewhat improved tolerance for lying supine/hooklying. Pt expressing ongoing sx R thigh with intermittent radiating heel sx. Trial of mechanical traction attempted however this was stopped at 4 minutes into treatment due to reports of increasing onset of lower back pain. Pt to see [facility] tomorrow. 12/12/22 Pt had MRI completed yesterday, reports intolerance for lying supine during screening. He continues to exhibit ongoing antalgic gait with decreased calf strength on the R LE. Today he appeared to exhibit new tolerance for p-ball positional traction and was encouraged to trial this at home through the weekend. Possible goal of trialing mechanical lumbar traction next week if positional tolerance continues. Relief reported with newly prescribed addition of gabapentin. 12/02/22 Pt exhibits worsening LE sx today, was previously obtaining relief with prone lying>IVETT however today sx unchanged with positional change. Pt to see [facility] later this morning. 12/01/22: Pt has attended 12 sessions of PT to date, exhibiting some level of plateau in his progress since start of care. Pt expressing worsening R LE sx today, reports near constant pain in his knee at start of session. He reports he is seeing the [facility] tomorrow. He continues to exhibit a SLR and is awaiting an MRI approval. Therapist is inquiring with F[facility] about potential of trialing another steroid taper in effort to ease inflammation/ R LE sx. 11/28/22 Pt reports significant sleep disturbance, reports use of meloxicam with limited gains. Therapist is inquiring with [facility]'s Physician .Net Architect opinion of a prescribing a second round of a steroid taper to address inflammation duet to ongoing severity and start of plateauing status related to positional tolerance? Pt did express some relief with initial steroid taper but also did express some mild side effects so unsure of provider has alternative treatment to trial? Pt expressing intolerance for tylenol>ibuprofen with history of stomach upset. Pt exhibits antalgic gait with decreased stance R LE. Some questionable improvement in R calf raise with UE support compared to start of care. Pt has appeared to exhibit some limited centralization of sx, today reports anterior/posterior R thigh sx, no longer denies sx below the knee. Held manual therapy and taping this date (completed yesterday) due to slight skin irritation noted today with pt removing at home prior to session. Outline of tape present on skin with reddened appearance, no cut or open areas. Pt to see [facility] on 12/02/22. Pt reports has not received any update or approval regarding MRI for his lumbar spine. Pt intolerance for trial of supine/hooklying. Pt is not a candidate for mechanical lumbar traction at this time due to severity of R LE sx with attempt of position. Long axis distraction was attempted a few visits ago however poor response was exhibibited. Some short term limited relief with prone>extension based exercises. Poor tolerance for flexion. SLR persists R LE. Thank you for this referral. 11/27/22: Pt exhibits erythema response to thoracic paraspinals with IASTM, some tenderness reported with manual pressure to R lumbar with IASTM (reduced pressure with positive outcomes). 11/25/22 Pt expressing R LE sx to the lateral thigh this date, therapist encouraged low impact gentle walking program on soft track material in effort to ease sx. Pt benefited from cues of reducing trunk flexion with seated stretches this date (use of table vs pball due to degree of flexion). Awaiting approval for MRI. Pt continues to exhibit neural tension sx, reports taking meloxicam with limited relief. 11/21/22: Pt was seen by [facility] provider, reports an MRI has been ordered. Pt remains OOW. Trial of long axis distraction was completed (increased sx in lumbar x 3 minutes) so this was D/C. Trial of L SL for a few minutes eased sx proximal thigh R LE. Pt encouraged to trial this activity at home. Pt was educated re: goal of centralization vs peripheralization with task. 11/18/22: Pt had poor tolerance for sitting/trial of flexion tasks today compared to last week, bike was not tolerated, 3 minutes into activity (+) radiating LE sx to height of ankle (compared to last week was able to do). He does present with antalgic gait R LE decreased stance, with improvement no longer presents with lateral shift. Pt reports he was stuck in traffic over the weekend, stuck sitting for several hours from [place] traffic which could have flared micha sx. Pt encouraged to stretch HS in standing as long as not symptomatic in the spine. (+) SLR persists. Pt will continue to benefit from skilled PT services at a frequency of 3x/week x 6 additional weeks as of today (awaiting updated script from [facility]), he continues use of tylenol 2x daily which eases his sx. Please advise and update a new prescription for support of ongoing PT. THank you for this referral. PT NS for appt 11/17/22 at 8:00am. A VM was left on patient's phone requesting callback. Patient is usually always on time for appts so this is unlike him (pt did report feeling achy all over last session so therapist was questioning if patient is sick). 11/17/22: Pt has attended 6 session of PT to date (including initial intake with start of care 11/04/22, DOI 10/16/22. Since starting therapy, patient has demonstrated some improvement in posturing (intially R SB and flexed) now more consistently erect and neutral spine. He exhibits a reduction/centralization in his R LE sx (from height of heel to height of knee). He has responded positively to prone series of exercise program. Last session, he came in reporting global body aches but denied presence of a fever. He continues to express central lumbar and expresses radiating R lateral hip sx which. Pt continues to express at (+) SLR, decreased R LE DTRS, and has weakness in his R calf. Pt would likely benefit from referral to cardiovascular disease specialist and or MRI imaging to assess status due to ongoing severity, amount of load/ mechanism of injury, and observed weakness in R LE. Pt reports load he flexed with was approx 400lbs at time of injury. Pt has been very compliant with his HEP. He reports use of tylenol twice daily (poor tolerance for ibuprofen due to stomach upset). 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 11/14/22 Pt presents expressing increased soreness/ache overall today. Decreased tolerance for flexion stretches, held bike today due to this. Pt encouraged to limit sitting, complete walking, prone series HEP at home through the weekend. 11/11/22: Improving tolerance for mobility, initiated the bike today with positive response and good tolerance. 11/10/22: Pt expressing worsening lower back pain in general yesterday was 8/10, today reports somewhat better 5/10. Pt expressing centralization of sx to upper region of R thigh, verbalizes improved ability to move R ankle and push off calf with ambulation post manual/ TENS/prone series. Pt encouraged to iniitated core stabilization with ambulation and swing arms when ambulating to reduce tissue tension in upper body. Improved ability to perform a R sided calf raise today post treatment session completed. Trialed an alternative form of ROCKTAPE (fanning approach for R LQ in effort to increase tissue extensibility/ease sx. Pt exhibits (+) sx neural tension, presents with significant trunk flexion, R side lateral shift, antalgic gait reports has been experiencing R LE sx radiating to R thigh>R knee in recent days. Correction attempted for lateral shift in office (L hip toward side of wall with pillow) with good outcomes (added for HEP). Pt exhibits weakness of heel raise on the R LE and has diminished patellar>achilles reflexes on the R LE. Pt encouraged to continue walking short distances often, perform prone series short reps repeatedly throughout the day, and refrain from seated flexion positions. Encouraged hydration, low reps of stretches, and educated re: monitoring LE sx with exercises. Some short term relief is reported with taping. Seated trunk flexion stretches were shown and added for program. (educated to avoid standing trunk flexion). Pt to expresses he has been taking 500mg Tylenol 2x/ daily (due to stomach upset with ibuprofen). Remains OOW. To see [facility] again on 11/18/22 (reports being seen yesterday). Due to (+) SLR, mechanism of load with injury, and weakness in R LE patient may benefit from MRI to screen for HNP/cause of lumbar radiculopathy. Brief positional trial of flexion was attempted in office with feet up on [facility] to assess response but was D/C due to surge of sx in lumbar with attempt. Concern for disc herniation of L5/S1 based on examination. 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 Pt was educated re: findings of goals this date PT Plan: [place] higher level stabilization. Short Term Goals: 1. Negative lumbar instability test in prone. (IR: positive testing). 2. Strength hip abd 5/5. (IR 4+/5 compensation hip flexion. 3. Be able to plank 30 seconds with good core stab/control with sx <2/10 L/S. 4. RTW with good carryover lifting/mechanics. 5. Rise from the floor holding an 10lb weight from a half kneel position from both his R and left side without UE support. Family Practice Physician Assistant Goals: 1. Strength erector spinae 5/5. 2. RTW full duty with good joint protection/mechanics. 3. Strength R planfar flexion 5/5 on R LE. IR <5/5). 4. Strength hip abduction 5/5 bilaterally. 5. Strength hip extension 5/5 bilaterally. Electronically signed by: Merry Stanley, PT, DPT
--- NOTE | 2023-12-22 12:33 | MHC.PT.OD ---
[facility] [place] Office [place] Office [place] Office [address] Lucas Tavera [address] [phone] F: [phone] F: [phone] F: [phone] F: [phone] Physical Therapy Daily Note Diagnosis: Right lumbar radiculopathy PT eval and treat, date sahil referral 10/27/22, 1-3x/week x 3-12 weeks signed by Ayanna Osborne PA-C New order 12/29/23: DJD HNP L5/S1 date if injury 10/16/22 Much improved : Pre return to work PT 1 year OOW Eval and treat; frequency 2-3x/week x [address] Gaytan 12/29 Date of Surgery: Date of Evaluation: 11/04/22 Date of Treatment: 12/22/23 Treatments to Date: Cancellations to Date: No Shows to Date: Authorized Visits: Insurance End Date: Precautions/ Contraindications:Hx work injury DOI 10/16/22 Subjective: Reports was sore but in a good way after last session. To [facility] on 12/25/23. Pain Score and Location: 6 R SIDE LB, Objective Flowsheet: Tests & Measures Pt was last seen 01/23/23 and ultimately was referred to pain management. Pt had MRI (+) HNP R L5/S1. Pt received history of three injections, first one February 28. Pt states all of the parathesias in the R LEG. Pt had a second injection three months later, no therapy, no real change. Was still OOW at that time. Pt was placed on gabapentin 400mg (AM, lunch, dinner). A month an a half ago received a third injection. Pt believes sx was L2/L3 injection with dropping down to 300mg gabapentin total per day. OOW. Has not had therapy. Pt was checking in with Dr. Gaytan/[place] [facility] throughout. Pt was seen by Dr. Huitron recently. Pt states his biggest sx is pain in his lumbar area (when bending over to was his hands). Pt states he does not believe he is on a lifting restriction. Pt has been seeing a chiropractor for the past few months. [facility] [address] [place] [address] Office Visit Report Signed Patient: Maxime Werner#: [id number] : 1990Acct:[id number] Age/Sex: 33 / MADM/SER Date: 11/20/23 Loc: HO.PMCADM/SER Time:810 Attending Provider: Guido Huitron MD cc: Tomás Harrell~ Vital Signs 11/20/23 08:18 Height 6 ft 5 in Weight 375 lb BMI 44.5 BP 133/79 Blood Pressure Location Lt brachial Position Sitting Respiration 20 Pulse 79 Pulse Source Pulse Oximeter Pulse Oximetry (%) 96 Oxygen Delivery Method Room Air Intake Visit Reasons: s/p right theraputic L2-L3, L3-L4 facet inj Intake Note: Patient states 75-80% relief. Pain Level today 1/10 Allergies Penicillins Allergy (Severe, Verified 11/20/23 08:17) Shortness of Breath HPI HPI s/p right theraputic L2-L3, L3-L4 facet inj: Details: 33-year-old male who presents today for status post right therapeutic L2-L3 and L3-L4 facet injection. He reports 80 to 90% improvement since his injection. He is more mobile and able to do more exercise. He is able to bend down without significant pain and being worried about radiofrequency ablation of the lumbar medial branch nerves. He states his pain level today is 1/10. He is compliant with his medication. [facility] Medical History Asthma Hx of renal calculi Surgical History Hx of esophagogastroduodenoscopy Social History Housing: Apartment Alcohol intake: never Patient Tobacco Use Status: Former Tobacco user Tobacco use type: Cigarette e-Cigarette/Vaping Use: Never Used Second Hand Smoke Exposure: No service: No Current occupational status: employed Current occupation: [employer] Current occupational exposures/hazards: No Cognitive needs: No Hearing needs: No Vision needs: No Physical Exam Vital Signs: Last Vital Signs Pulse 79 11/20/23 08:18 Resp 20 11/20/23 08:18 BP 133/79 11/20/23 08:18 Pulse Ox 96 11/20/23 08:18 Oxygen Delivery Method Room Air 11/20/23 08:18 BMI result Body Mass Index 44.5 General: Appears afebrile. Alert and oriented. Mood and affect appropriate. Follows and participates in conversation appropriately. Respiratory effort is unlabored. Able to transition from sit to stand unassisted. Ambulates with bilaterally normal heel strike and toe off. Assessment & Plan Assessment & Plan (1) Lumbar spondylosis: Code(s): M47.816 - Spondylosis without myelopathy or radiculopathy, lumbar region Category: Medical Plan Faisal reports 80 to 90% improvement since his injection. He is more mobile and able to do more exercise. He is able to bend down without significant pain and being worried about radiofrequency ablation of the lumbar medial branch nerves and I counseled him that we would not undertake that unless it was necessary. Advised him to consider similar injection if his pain returns. Advised him to continue core exercises and strengthening. Scribed for Dr. Huitron by Bryant Parmar, medical coding auditor, on 11/20/2023. I, Dr. Huitron, have personally reviewed and agree with the information entered by the scribe Coding Level of Care Code Est Pt Level 3 (83737) Diagnoses Lumbar spondylosis M47.816 Documented By:Guido Huitron MD11/20/23 0817 Exercises Upright bike seat #9 level 2.0 x 10 minutes with cues for posture/breathing Hooklying med ball abd lowers x 2 sets 10R with 2000 gram med ball x 3 sets 15R, chop/diagnonal core stab with hooklying with black band around thigh x 3 sets 15R, quadriped UE raises with black band on hip x 3 sets 10R, (challenged and shoulder quiver noted), Hooklying brdige over pball x 3 sets 15R, pec minor stretch with towel roll x 5 minutes, trialed with 1/2 foam roller to increase tension with positive relief reported in back post stretch, Pt stating, I feel more upright after that stretch. DTRs patellar and achilles diminshed L LE, R LE patella/achilles 1+ SLR (+) R LE Pt exhibits significant antalgic gait at start of session: Poor stance R LE with increased trunk flexion, left lateral trink lean, R hips shifted to the right, hesitation of R hip flexion, decreased heel strike increased weight shift to the L LE. Post lateral shift correction pt noted to leave office more upright and expressed relief of pressure in his lower back. Seated trunk flexion two I strips with two I strips laterally on the right with two additional support for R gluteal hip extension lift/supoprt with education for removal. Taping applied. Education for removal. self care HEP program. Modalities Hook-lying for mechanical lumbar traction with wedge under knees with pressure pull 18# x 10 minutes in effort to reduce back pain and improve LE sx. Assessment: 12/22/23; Pt was fatigued and challenged with core stabilization task. Was trialed on upright bike today vs recumbent in effort to challenge trunk/LS musculature. Pt was progressed in reps to 3 sets 15R with all task. Pt joined gym discussed joint protection in regartd to avoidance of lift, overhead tasks, no leg press heavy squats. Pt would benefit from ongoing PT to progress to more challenging poisitions; emma was started today with (+) challenge. PLan would be to work towards standing> kneeling>half kneeling and lifting weights/box lifts. 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 No radiating SX were reported today. Fatigue in lower back and shoulders were. 12/18/23: Pt expressed fatigue/challenge with hip abduction in SL position. Pt will benefit from transition>progression from supine>prone>half-kneeling>standing dynamic core program to prepare for higher level RTW demands. Pt was issued home program to work on activities as noted above. 12/15/23: Pt was last seen in PT on 01/23/23. Since that time pt has received a series of three injections in his back. Pt presents today after seeing [facility] with new referral dated, with tentative RTW goal of 12/28/23. Pt exhibits poor core strength, decreased functional movements for kneeling, half-kneeling and rising from that position. In order to best prepare for full level RTW demands patient will be best served in education and progression of a dynamic lumbar stabilization program. Pt has been educated in progression of sx this date. Pt would also likely benefit from a lifting/work conditioning program upon completion and progression of a dynamic stabilization program. See Last reassessment note on 01/06/23. Further PT authorization was denied by . Pt was awaiting referral in pain management on 01/12/23. D/C due to lack of insurance authorization/plateaued status. 01/06/23: Pt expressing he has a new consult with pain management on Thursday, on 01/12/23. Continue traction and lumbar stabilization program. 01/02/23: Pt has attended 22 sessions of PT since start of care 11/04/22; DOI work related injury of 10/16/22. Pt presents to the office today expressing he had new onset of sudden inability to get out of bed on Thursday, which was a poor change for his mobility over the past few weeks. He expresses ongoing R LE parathesias along R lateral thigh radiating to plantar surface of heel on the R. Pt was seen by the [facility] for a follow up yesterday, was prescribed new medication indocmethacin 50mg to be taken once daily, (taken off meloxicam) continues to take gabapentin. Pt was noted to present to the office exhibiting increased lateral shift (a worsened posture he has had for the past few visits (was near neutral standing with increased trunk flexion from prior). Since time of last reassessment, pt was started on mechanical lumbar traction and has had a few sessions of this with what appeared to be overall positive gains and some centralization of his R heel sx. He expresses several hours of relief with traction in the past with recurrence of his sx. Pt has made ups/downs with start of this treatment, however traction was held today due to his worsening posture (shifted L lateral shoulder lean, R hip to the R). Pt is awaiting a consult in pain management for 01/12/23. Post session and after reviewing/re-implenting lateral shift corrective exercises/taping/tens/extension based tasks he appeared neutral in his trunk posturing. He was educated to continue performance of prone based exercises with low rep high frequency of lateral shift correction (completing these first). Pt will continue to benefit from receiving skilled PT services at a frequency of 2x/week x 6 weeks in conjunction with treatment/consult of pain management. Pt is highly compliant in his HEP and does verbalize ongoing gains/improvement/reduction in sx with traction treatment this date. Pt will benefit from ongoing PT 2x/week x 6 weeks to address impairments, implement HEP, and restore functional mobility to resume PLOF. 12/30/22: Some relief with traction reported, intermittent R heel parathesias. 12/26/22: Pt expressing some relief with lumbar traction this date, pt expressing centralization of lateral L thigh/LE. 12/23/22 Pt expressing increased lumbar back pain today, reports near constant R lateral sx. 12/22/22: Pt expressing lateral L sided thigh sx today, reports additional soreness on the bottom of his feet which could be from wearing crocs on his feet this past weekend, I feel like Im walking on concrete. (Improved post rolling out plantar fascia seated in the office today) Pt requesting to hold mechanical lumbar traction due to soreness which he stated lasted most of the weekend following last session. Its more in my back today. Pt to obtain report from [place] for [facility] to review (has not yet obtained appt with pain management). 12/16/22: Pt expressing overall improvement in back pain compared to yesterday. Holding traction treatment due to poor tolerance after four minutes. Pt encouraged for trial of hooklying position at home. Pt to see [facility] following today's visit. 12/15/22: Pt demonstrating somewhat improved tolerance for lying supine/hooklying. Pt expressing ongoing sx R thigh with intermittent radiating heel sx. Trial of mechanical traction attempted however this was stopped at 4 minutes into treatment due to reports of increasing onset of lower back pain. Pt to see [facility] tomorrow. 12/12/22 Pt had MRI completed yesterday, reports intolerance for lying supine during screening. He continues to exhibit ongoing antalgic gait with decreased calf strength on the R LE. Today he appeared to exhibit new tolerance for p-ball positional traction and was encouraged to trial this at home through the weekend. Possible goal of trialing mechanical lumbar traction next week if positional tolerance continues. Relief reported with newly prescribed addition of gabapentin. 12/02/22 Pt exhibits worsening LE sx today, was previously obtaining relief with prone lying>IVETT however today sx unchanged with positional change. Pt to see [facility] later this morning. 12/01/22: Pt has attended 12 sessions of PT to date, exhibiting some level of plateau in his progress since start of care. Pt expressing worsening R LE sx today, reports near constant pain in his knee at start of session. He reports he is seeing the [facility] tomorrow. He continues to exhibit a SLR and is awaiting an MRI approval. Therapist is inquiring with F[facility]TIMA about potential of trialing another steroid taper in effort to ease inflammation/ R LE sx. 11/28/22 Pt reports significant sleep disturbance, reports use of meloxicam with limited gains. Therapist is inquiring with [facility]'s Physician Plant Anatomist opinion of a prescribing a second round of a steroid taper to address inflammation duet to ongoing severity and start of plateauing status related to positional tolerance? Pt did express some relief with initial steroid taper but also did express some mild side effects so unsure of provider has alternative treatment to trial? Pt expressing intolerance for tylenol>ibuprofen with history of stomach upset. Pt exhibits antalgic gait with decreased stance R LE. Some questionable improvement in R calf raise with UE support compared to start of care. Pt has appeared to exhibit some limited centralization of sx, today reports anterior/posterior R thigh sx, no longer denies sx below the knee. Held manual therapy and taping this date (completed yesterday) due to slight skin irritation noted today with pt removing at home prior to session. Outline of tape present on skin with reddened appearance, no cut or open areas. Pt to see [facility] on 12/02/22. Pt reports has not received any update or approval regarding MRI for his lumbar spine. Pt intolerance for trial of supine/hooklying. Pt is not a candidate for mechanical lumbar traction at this time due to severity of R LE sx with attempt of position. Long axis distraction was attempted a few visits ago however poor response was exhibibited. Some short term limited relief with prone>extension based exercises. Poor tolerance for flexion. SLR persists R LE. Thank you for this referral. 11/27/22: Pt exhibits erythema response to thoracic paraspinals with IASTM, some tenderness reported with manual pressure to R lumbar with IASTM (reduced pressure with positive outcomes). 11/25/22 Pt expressing R LE sx to the lateral thigh this date, therapist encouraged low impact gentle walking program on soft track material in effort to ease sx. Pt benefited from cues of reducing trunk flexion with seated stretches this date (use of table vs pball due to degree of flexion). Awaiting approval for MRI. Pt continues to exhibit neural tension sx, reports taking meloxicam with limited relief. 11/21/22: Pt was seen by [facility] provider, reports an MRI has been ordered. Pt remains OOW. Trial of long axis distraction was completed (increased sx in lumbar x 3 minutes) so this was D/C. Trial of L SL for a few minutes eased sx proximal thigh R LE. Pt encouraged to trial this activity at home. Pt was educated re: goal of centralization vs peripheralization with task. 11/18/22: Pt had poor tolerance for sitting/trial of flexion tasks today compared to last week, bike was not tolerated, 3 minutes into activity (+) radiating LE sx to height of ankle (compared to last week was able to do). He does present with antalgic gait R LE decreased stance, with improvement no longer presents with lateral shift. Pt reports he was stuck in traffic over the weekend, stuck sitting for several hours from [place]ath[place] traffic which could have flared micha sx. Pt encouraged to stretch HS in standing as long as not symptomatic in the spine. (+) SLR persists. Pt will continue to benefit from skilled PT services at a frequency of 3x/week x 6 additional weeks as of today (awaiting updated script from [facility]), he continues use of tylenol 2x daily which eases his sx. Please advise and update a new prescription for support of ongoing PT. THank you for this referral. PT NS for appt 11/17/22 at 8:00am. A VM was left on patient's phone requesting callback. Patient is usually always on time for appts so this is unlike him (pt did report feeling achy all over last session so therapist was questioning if patient is sick). 11/17/22: Pt has attended 6 session of PT to date (including initial intake with start of care 11/04/22, DOI 10/16/22. Since starting therapy, patient has demonstrated some improvement in posturing (intially R SB and flexed) now more consistently erect and neutral spine. He exhibits a reduction/centralization in his R LE sx (from height of heel to height of knee). He has responded positively to prone series of exercise program. Last session, he came in reporting global body aches but denied presence of a fever. He continues to express central lumbar and expresses radiating R lateral hip sx which. Pt continues to express at (+) SLR, decreased R LE DTRS, and has weakness in his R calf. Pt would likely benefit from referral to nuclear weapons specialist and or MRI imaging to assess status due to ongoing severity, amount of load/ mechanism of injury, and observed weakness in R LE. Pt reports load he flexed with was approx 400lbs at time of injury. Pt has been very compliant with his HEP. He reports use of tylenol twice daily (poor tolerance for ibuprofen due to stomach upset). 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 11/14/22 Pt presents expressing increased soreness/ache overall today. Decreased tolerance for flexion stretches, held bike today due to this. Pt encouraged to limit sitting, complete walking, prone series HEP at home through the weekend. 11/11/22: Improving tolerance for mobility, initiated the bike today with positive response and good tolerance. 11/10/22: Pt expressing worsening lower back pain in general yesterday was 8/10, today reports somewhat better /10. Pt expressing centralization of sx to upper region of R thigh, verbalizes improved ability to move R ankle and push off calf with ambulation post manual/ TENS/prone series. Pt encouraged to iniitated core stabilization with ambulation and swing arms when ambulating to reduce tissue tension in upper body. Improved ability to perform a R sided calf raise today post treatment session completed. Trialed an alternative form of ROCKTAPE (fanning approach for R LQ in effort to increase tissue extensibility/ease sx. Pt exhibits (+) sx neural tension, presents with significant trunk flexion, R side lateral shift, antalgic gait reports has been experiencing R LE sx radiating to R thigh>R knee in recent days. Correction attempted for lateral shift in office (L hip toward side of wall with pillow) with good outcomes (added for HEP). Pt exhibits weakness of heel raise on the R LE and has diminished patellar>achilles reflexes on the R LE. Pt encouraged to continue walking short distances often, perform prone series short reps repeatedly throughout the day, and refrain from seated flexion positions. Encouraged hydration, low reps of stretches, and educated re: monitoring LE sx with exercises. Some short term relief is reported with taping. Seated trunk flexion stretches were shown and added for program. (educated to avoid standing trunk flexion). Pt to expresses he has been taking 500mg Tylenol 2x/ daily (due to stomach upset with ibuprofen). Remains OOW. To see [facility] again on 11/18/22 (reports being seen yesterday). Due to (+) SLR, mechanism of load with injury, and weakness in R LE patient may benefit from MRI to screen for HNP/cause of lumbar radiculopathy. Brief positional trial of flexion was attempted in office with feet up on physioball in [facility] to assess response but was D/C due to surge of sx in lumbar with attempt. Concern for disc herniation of L5/S1 based on examination. 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 Pt was educated re: findings of goals this date PT Plan: [place] higher level stabilization. Short Term Goals: 1. Negative lumbar instability test in prone. (IR: positive testing). 2. Strength hip abd 5/5. (IR 4+/5 compensation hip flexion. 3. Be able to plank 30 seconds with good core stab/control with sx <2/10 L/S. 4. RTW with good carryover lifting/mechanics. 5. Rise from the floor holding an 10lb weight from a half kneel position from both his R and left side without UE support. Halfway Goals: 1. Strength erector spinae 5/5. 2. RTW full duty with good joint protection/mechanics. 3. Strength R planfar flexion 5/5 on R LE. IR <5/5). 4. Strength hip abduction 5/5 bilaterally. 5. Strength hip extension 5/5 bilaterally. Electronically signed by: Merry Stanley, PT, DPT
--- NOTE | 2023-12-25 10:37 | MHC.PT.OD ---
[facility] [place] [facility] [place] [facility] [place] [facility] [address] Lucas Tavera [address] [phone] F: [phone] F: [phone] F: [phone] F: [phone] Physical Therapy Daily Note Diagnosis: Right lumbar radiculopathy PT eval and treat, date sahil referral 10/27/22, 1-3x/week x 3-12 weeks signed by Ayanna Osborne PA-C New order 12/29/23: DJD HNP L5/S1 date if injury 10/16/22 Much improved : Pre return to work PT 1 year OOW Eval and treat; frequency 2-3x/week x [address] Gaytan 12/29 Date of Surgery: Date of Evaluation: 11/04/22 Date of Treatment: 12/25/23 Treatments to Date: Cancellations to Date: No Shows to Date: Authorized Visits: Insurance End Date: Precautions/ Contraindications:Hx work injury DOI 10/16/22 Subjective: Pt. is seeing work Alina Osborne from [facility] later today. He stated he bought his own foam roller and med ball to do his exercises at home. Pain Score and Location: 6 R SIDE LB, Objective Flowsheet: Tests & Measures Pt was last seen 01/23/23 and ultimately was referred to pain management. Pt had MRI (+) HNP R L5/S1. Pt received history of three injections, first one February 28. Pt states all of the parathesias in the R LEG. Pt had a second injection three months later, no therapy, no real change. Was still OOW at that time. Pt was placed on gabapentin 400mg (AM, lunch, dinner). A month an a half ago received a third injection. Pt believes sx was L2/L3 injection with dropping down to 300mg gabapentin total per day. OOW. Has not had therapy. Pt was checking in with Dr. Gaytan/[place] [facility] throughout. Pt was seen by Dr. Huitron recently. Pt states his biggest sx is pain in his lumbar area (when bending over to was his hands). Pt states he does not believe he is on a lifting restriction. Pt has been seeing a chiropractor for the past few months. [facility] [address] [place] [address] Office Visit Report Signed Patient: Maxime Werner#: [id number] : 1990Acct:[id number] Age/Sex: 33 / MADM/SER Date: 11/20/23 Loc: HO.PMCADM/SER Time:810 Attending Provider: Guido Huitron MD cc: Tomás Harrell~ Vital Signs 11/20/23 08:18 Height 6 ft 5 in Weight 375 lb BMI 44.5 BP 133/79 Blood Pressure Location Lt brachial Position Sitting Respiration 20 Pulse 79 Pulse Source Pulse Oximeter Pulse Oximetry (%) 96 Oxygen Delivery Method Room Air Intake Visit Reasons: s/p right theraputic L2-L3, L3-L4 facet inj Intake Note: Patient states 75-80% relief. Pain Level today 1/10 Allergies Penicillins Allergy (Severe, Verified 11/20/23 08:17) Shortness of Breath HPI HPI s/p right theraputic L2-L3, L3-L4 facet inj: Details: 33-year-old male who presents today for status post right therapeutic L2-L3 and L3-L4 facet injection. He reports 80 to 90% improvement since his injection. He is more mobile and able to do more exercise. He is able to bend down without significant pain and being worried about radiofrequency ablation of the lumbar medial branch nerves. He states his pain level today is 1/10. He is compliant with his medication. [facility] Medical History Asthma Hx of renal calculi Surgical History Hx of esophagogastroduodenoscopy Social History Housing: Apartment Alcohol intake: never Patient Tobacco Use Status: Former Tobacco user Tobacco use type: Cigarette e-Cigarette/Vaping Use: Never Used Second Hand Smoke Exposure: No service: No Current occupational status: employed Current occupation: [employer] Current occupational exposures/hazards: No Cognitive needs: No Hearing needs: No Vision needs: No Physical Exam Vital Signs: Last Vital Signs Pulse 79 11/20/23 08:18 Resp 20 11/20/23 08:18 BP 133/79 11/20/23 08:18 Pulse Ox 96 11/20/23 08:18 Oxygen Delivery Method Room Air 11/20/23 08:18 BMI result Body Mass Index 44.5 General: Appears afebrile. Alert and oriented. Mood and affect appropriate. Follows and participates in conversation appropriately. Respiratory effort is unlabored. Able to transition from sit to stand unassisted. Ambulates with bilaterally normal heel strike and toe off. Assessment & Plan Assessment & Plan (1) Lumbar spondylosis: Code(s): M47.816 - Spondylosis without myelopathy or radiculopathy, lumbar region Category: Medical Plan Faisal reports 80 to 90% improvement since his injection. He is more mobile and able to do more exercise. He is able to bend down without significant pain and being worried about radiofrequency ablation of the lumbar medial branch nerves and I counseled him that we would not undertake that unless it was necessary. Advised him to consider similar injection if his pain returns. Advised him to continue core exercises and strengthening. Scribed for Dr. Huitron by Bryant Parmar medical logistics specialist, on 11/20/2023. I, Dr. Huitron, have personally reviewed and agree with the information entered by the scribe Coding Level of Care Code Est Pt Level 3 (44293) Diagnoses Lumbar spondylosis M47.816 Documented By:Guido Huitron MD11/20/23 0817 Exercises Upright bike set #9 level 3 X10 minutes -Prone over two pillows on mat with legs hanging off, hip extensions 2X10 reps on each leg. Cues for core engagement and breathing. -Plank on elbows X8 seconds, followed by 1 more X5 seconds. Cues for core engagement and body positioning. This exercise caused irritation and pain and was stopped. Will keep this as a goal to progress to. -pec stretch on half foam roller X7 minutes. Pt. stated this helped ease the pain from the planks. DTRs patellar and achilles diminshed L LE, R LE patella/achilles 1+ SLR (+) R LE Pt exhibits significant antalgic gait at start of session: Poor stance R LE with increased trunk flexion, left lateral trink lean, R hips shifted to the right, hesitation of R hip flexion, decreased heel strike increased weight shift to the L LE. Post lateral shift correction pt noted to leave office more upright and expressed relief of pressure in his lower back. STM/IASTM HG # to entire back. Pt in prone with two pillows under abdomen. Done to help relieve pressure and increase tissue extensibility. X16 minutes. Slight erythematic response. Rocktape to paraspinals, anchored to lumbar sacral junction with tension pulled toward cervical region. 2 strips anchored on vertebral column and pulled to the R w/ pt stretching to the L. Skin in tact pre and post treatment self care HEP program. Modalities Hook-lying for mechanical lumbar traction with wedge under knees with pressure pull 18# x 10 minutes in effort to reduce back pain and improve LE sx. Assessment: 12/25/23: Attempted to progress to higher level stabilization program with prone forearm plank. Pt. stated he had done planks before but it has been a long time. He felt some uncomfortably in the starting position. First plank attempt was able to to hold for 8 seconds and with attempt second plank began tp experience pain R lumbar (with no radiating LE sx) and therefore this tasks was DC. He continues to be unable to squat deeper depths without fatigue and soreness in his back. This trial of plank exercise caused an increase in amount of pain leading to holding off on stabilization exercises for the remainder of the visit. Followed up with STM/IASTM and ROCKTAPE to help relieve sx. Pt would benefit from more skilled therapy to progress lifting ability to prepare for higher level work demands. Pt exhibits good carryover of HEP has reported purchasing a foam roller, 6lb med ball, and yoga mat. Pt would benefit from higher level stabilization for a few weeks 2x/week x additional 3-4 weeks with progression to higher level work conditioning program. 12/22/23; Pt was fatigued and challenged with core stabilization task. Was trialed on upright bike today vs recumbent in effort to challenge trunk/LS musculature. Pt was progressed in reps to 3 sets 15R with all task. Pt joined gym discussed joint protection in regartd to avoidance of lift, overhead tasks, no leg press heavy squats. Pt would benefit from ongoing PT to progress to more challenging poisitions; emma was started today with (+) challenge. PLan would be to work towards standing> kneeling>half kneeling and lifting weights/box lifts. 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 No radiating SX were reported today. Fatigue in lower back and shoulders were. 12/18/23: Pt expressed fatigue/challenge with hip abduction in SL position. Pt will benefit from transition>progression from supine>prone>half-kneeling>standing dynamic core program to prepare for higher level RTW demands. Pt was issued home program to work on activities as noted above. 12/15/23: Pt was last seen in PT on 01/23/23. Since that time pt has received a series of three injections in his back. Pt presents today after seeing [facility] with new referral dated, with tentative RTW goal of 12/28/23. Pt exhibits poor core strength, decreased functional movements for kneeling, half-kneeling and rising from that position. In order to best prepare for full level RTW demands patient will be best served in education and progression of a dynamic lumbar stabilization program. Pt has been educated in progression of sx this date. Pt would also likely benefit from a lifting/work conditioning program upon completion and progression of a dynamic stabilization program. See Last reassessment note on 01/06/23. Further PT authorization was denied by . Pt was awaiting referral in pain management on 01/12/23. D/C due to lack of insurance authorization/plateaued status. 01/06/23: Pt expressing he has a new consult with pain management on Thursday, on 01/12/23. Continue traction and lumbar stabilization program. 01/02/23: Pt has attended 22 sessions of PT since start of care 11/04/22; DOI work related injury of 10/16/22. Pt presents to the office today expressing he had new onset of sudden inability to get out of bed on Thursday, which was a poor change for his mobility over the past few weeks. He expresses ongoing R LE parathesias along R lateral thigh radiating to plantar surface of heel on the R. Pt was seen by the [facility] for a follow up yesterday, was prescribed new medication indocmethacin 50mg to be taken once daily, (taken off meloxicam) continues to take gabapentin. Pt was noted to present to the office exhibiting increased lateral shift (a worsened posture he has had for the past few visits (was near neutral standing with increased trunk flexion from prior). Since time of last reassessment, pt was started on mechanical lumbar traction and has had a few sessions of this with what appeared to be overall positive gains and some centralization of his R heel sx. He expresses several hours of relief with traction in the past with recurrence of his sx. Pt has made ups/downs with start of this treatment, however traction was held today due to his worsening posture (shifted L lateral shoulder lean, R hip to the R). Pt is awaiting a consult in pain management for 01/12/23. Post session and after reviewing/re-implenting lateral shift corrective exercises/taping/tens/extension based tasks he appeared neutral in his trunk posturing. He was educated to continue performance of prone based exercises with low rep high frequency of lateral shift correction (completing these first). Pt will continue to benefit from receiving skilled PT services at a frequency of 2x/week x 6 weeks in conjunction with treatment/consult of pain management. Pt is highly compliant in his HEP and does verbalize ongoing gains/improvement/reduction in sx with traction treatment this date. Pt will benefit from ongoing PT 2x/week x 6 weeks to address impairments, implement HEP, and restore functional mobility to resume PLOF. 12/30/22: Some relief with traction reported, intermittent R heel parathesias. 12/26/22: Pt expressing some relief with lumbar traction this date, pt expressing centralization of lateral L thigh/LE. 12/23/22 Pt expressing increased lumbar back pain today, reports near constant R lateral sx. 12/22/22: Pt expressing lateral L sided thigh sx today, reports additional soreness on the bottom of his feet which could be from wearing crocs on his feet this past weekend, I feel like Im walking on concrete. (Improved post rolling out plantar fascia seated in the office today) Pt requesting to hold mechanical lumbar traction due to soreness which he stated lasted most of the weekend following last session. Its more in my back today. Pt to obtain report from [facility] for [facility] to review (has not yet obtained appt with pain management). 12/16/22: Pt expressing overall improvement in back pain compared to yesterday. Holding traction treatment due to poor tolerance after four minutes. Pt encouraged for trial of hooklying position at home. Pt to see [facility] following today's visit. 12/15/22: Pt demonstrating somewhat improved tolerance for lying supine/hooklying. Pt expressing ongoing sx R thigh with intermittent radiating heel sx. Trial of mechanical traction attempted however this was stopped at 4 minutes into treatment due to reports of increasing onset of lower back pain. Pt to see [facility] tomorrow. 12/12/22 Pt had MRI completed yesterday, reports intolerance for lying supine during screening. He continues to exhibit ongoing antalgic gait with decreased calf strength on the R LE. Today he appeared to exhibit new tolerance for p-ball positional traction and was encouraged to trial this at home through the weekend. Possible goal of trialing mechanical lumbar traction next week if positional tolerance continues. Relief reported with newly prescribed addition of gabapentin. 12/02/22 Pt exhibits worsening LE sx today, was previously obtaining relief with prone lying>IVETT however today sx unchanged with positional change. Pt to see [facility] later this morning. 12/01/22: Pt has attended 12 sessions of PT to date, exhibiting some level of plateau in his progress since start of care. Pt expressing worsening R LE sx today, reports near constant pain in his knee at start of session. He reports he is seeing the [facility] tomorrow. He continues to exhibit a SLR and is awaiting an MRI approval. Therapist is inquiring with [facility] about potential of trialing another steroid taper in effort to ease inflammation/ R LE sx. 11/28/22 Pt reports significant sleep disturbance, reports use of meloxicam with limited gains. Therapist is inquiring with [facility] Physician T[place] Head opinion of a prescribing a second round of a steroid taper to address inflammation duet to ongoing severity and start of plateauing status related to positional tolerance? Pt did express some relief with initial steroid taper but also did express some mild side effects so unsure of provider has alternative treatment to trial? Pt expressing intolerance for tylenol>ibuprofen with history of stomach upset. Pt exhibits antalgic gait with decreased stance R LE. Some questionable improvement in R calf raise with UE support compared to start of care. Pt has appeared to exhibit some limited centralization of sx, today reports anterior/posterior R thigh sx, no longer denies sx below the knee. Held manual therapy and taping this date (completed yesterday) due to slight skin irritation noted today with pt removing at home prior to session. Outline of tape present on skin with reddened appearance, no cut or open areas. Pt to see [facility] on 12/02/22. Pt reports has not received any update or approval regarding MRI for his lumbar spine. Pt intolerance for trial of supine/hooklying. Pt is not a candidate for mechanical lumbar traction at this time due to severity of R LE sx with attempt of position. Long axis distraction was attempted a few visits ago however poor response was exhibibited. Some short term limited relief with prone>extension based exercises. Poor tolerance for flexion. SLR persists R LE. Thank you for this referral. 11/27/22: Pt exhibits erythema response to thoracic paraspinals with IASTM, some tenderness reported with manual pressure to R lumbar with IASTM (reduced pressure with positive outcomes). 11/25/22 Pt expressing R LE sx to the lateral thigh this date, therapist encouraged low impact gentle walking program on soft track material in effort to ease sx. Pt benefited from cues of reducing trunk flexion with seated stretches this date (use of table vs pball due to degree of flexion). Awaiting approval for MRI. Pt continues to exhibit neural tension sx, reports taking meloxicam with limited relief. 11/21/22: Pt was seen by [facility] provider, reports an MRI has been ordered. Pt remains OOW. Trial of long axis distraction was completed (increased sx in lumbar x 3 minutes) so this was D/C. Trial of L SL for a few minutes eased sx proximal thigh R LE. Pt encouraged to trial this activity at home. Pt was educated re: goal of centralization vs peripheralization with task. 11/18/22: Pt had poor tolerance for sitting/trial of flexion tasks today compared to last week, bike was not tolerated, 3 minutes into activity (+) radiating LE sx to height of ankle (compared to last week was able to do). He does present with antalgic gait R LE decreased stance, with improvement no longer presents with lateral shift. Pt reports he was stuck in traffic over the weekend, stuck sitting for several hours from [place] traffic which could have flared micah sx. Pt encouraged to stretch HS in standing as long as not symptomatic in the spine. (+) SLR persists. Pt will continue to benefit from skilled PT services at a frequency of 3x/week x 6 additional weeks as of today (awaiting updated script from [facility]), he continues use of tylenol 2x daily which eases his sx. Please advise and update a new prescription for support of ongoing PT. THank you for this referral. PT NS for appt 11/17/22 at 8:00am. A VM was left on patient's phone requesting callback. Patient is usually always on time for appts so this is unlike him (pt did report feeling achy all over last session so therapist was questioning if patient is sick). 11/17/22: Pt has attended 6 session of PT to date (including initial intake with start of care 11/04/22, DOI 10/16/22. Since starting therapy, patient has demonstrated some improvement in posturing (intially R SB and flexed) now more consistently erect and neutral spine. He exhibits a reduction/centralization in his R LE sx (from height of heel to height of knee). He has responded positively to prone series of exercise program. Last session, he came in reporting global body aches but denied presence of a fever. He continues to express central lumbar and expresses radiating R lateral hip sx which. Pt continues to express at (+) SLR, decreased R LE DTRS, and has weakness in his R calf. Pt would likely benefit from referral to trade specialist and or MRI imaging to assess status due to ongoing severity, amount of load/ mechanism of injury, and observed weakness in R LE. Pt reports load he flexed with was approx 400lbs at time of injury. Pt has been very compliant with his HEP. He reports use of tylenol twice daily (poor tolerance for ibuprofen due to stomach upset). 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 11/14/22 Pt presents expressing increased soreness/ache overall today. Decreased tolerance for flexion stretches, held bike today due to this. Pt encouraged to limit sitting, complete walking, prone series HEP at home through the weekend. 11/11/22: Improving tolerance for mobility, initiated the bike today with positive response and good tolerance. 11/10/22: Pt expressing worsening lower back pain in general yesterday was 8/10, today reports somewhat better 5/10. Pt expressing centralization of sx to upper region of R thigh, verbalizes improved ability to move R ankle and push off calf with ambulation post manual/ TENS/prone series. Pt encouraged to iniitated core stabilization with ambulation and swing arms when ambulating to reduce tissue tension in upper body. Improved ability to perform a R sided calf raise today post treatment session completed. Trialed an alternative form of ROCKTAPE (fanning approach for R LQ in effort to increase tissue extensibility/ease sx. Pt exhibits (+) sx neural tension, presents with significant trunk flexion, R side lateral shift, antalgic gait reports has been experiencing R LE sx radiating to R thigh>R knee in recent days. Correction attempted for lateral shift in office (L hip toward side of wall with pillow) with good outcomes (added for HEP). Pt exhibits weakness of heel raise on the R LE and has diminished patellar>achilles reflexes on the R LE. Pt encouraged to continue walking short distances often, perform prone series short reps repeatedly throughout the day, and refrain from seated flexion positions. Encouraged hydration, low reps of stretches, and educated re: monitoring LE sx with exercises. Some short term relief is reported with taping. Seated trunk flexion stretches were shown and added for program. (educated to avoid standing trunk flexion). Pt to expresses he has been taking 500mg Tylenol 2x/ daily (due to stomach upset with ibuprofen). Remains OOW. To see [facility] again on 11/18/22 (reports being seen yesterday). Due to (+) SLR, mechanism of load with injury, and weakness in R LE patient may benefit from MRI to screen for HNP/cause of lumbar radiculopathy. Brief positional trial of flexion was attempted in office with feet up on [facility] [address] to assess response but was D/C due to surge of sx in lumbar with attempt. Concern for disc herniation of L5/S1 based on examination. 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 Pt was educated re: findings of goals this date PT Plan: Progress higher level stabilization and work conditioning. Short Term Goals: 1. Negative lumbar instability test in prone. (IR: positive testing). 2. Strength hip abd 5/5. (IR 4+/5 compensation hip flexion. 3. Be able to plank 30 seconds with good core stab/control with sx <2/10 L/S. 4. RTW with good carryover lifting/mechanics. 5. Rise from the floor holding an 10lb weight from a half kneel position from both his R and left side without UE support. Care Home Goals: 1. Strength erector spinae 5/5. 2. RTW full duty with good joint protection/mechanics. 3. Strength R planfar flexion 5/5 on R LE. IR <5/5). 4. Strength hip abduction 5/5 bilaterally. 5. Strength hip extension 5/5 bilaterally. Electronically signed by: Merry Stanley, PT, DPT
--- NOTE | 2024-01-19 08:47 | MHC.PT.OD ---
[facility] [place] Office [place] [facility] [place] [facility] [address] Lucas Tavera [address] [phone] F: [phone] F: [phone] F: [phone] F: [phone] Physical Therapy Daily Note Diagnosis: Right lumbar radiculopathy PT eval and treat, date sahil referral 10/27/22, 1-3x/week x 3-12 weeks signed by Ayanna Osborne PA-C New order 12/29/23: DJD HNP L5/S1 date if injury 10/16/22 Much improved : Pre return to work PT 1 year OOW Eval and treat; frequency 2-3x/week x [address] Gaytan 12/29 Date of Surgery: Date of Evaluation: 11/04/22 Date of Treatment: 01/19/24 Treatments to Date: Cancellations to Date: No Shows to Date: Authorized Visits: Insurance End Date: Precautions/ Contraindications:Hx work injury DOI 10/16/22 Subjective: States has been feeling good overall. Went camping slept on air mattress with no surge for sx. Pt to see [facility] today. Pain Score and Location: 6 R SIDE LB, Objective Flowsheet: Tests & Measures Lumbar ROM AROM Flexion to midshin stretch when flexing but sx catch upon return from on R side. 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 Can bridge but has pain with end range with prolonged hold. (+) Asymmetry of pelvis noted with bridge (R hip drops). Quadriped: Unable to maintain neutral pelvis without dropping R hip. Exercises Seated on bike for gentle warm-up with MHP applied to L/S x 10 minutes level 4.0 hill program resistance Standing fwd lunge x 2 sets 10R L>R and then backward lunge R>L x 2 set 10R min UE support prn on mat , backward lunge x 2 set 10R L>R and R, review nathan lifts with hooklying 8# x 2 sets 10R then diagonal oblique lift 8# x 2 sets 10R, med ball raise/chest press with 8# x 2 set 10R tandem stance quadriped UE raise for alternating shoulder taps with core stab, SL hip abd with black band clamshell x 10R x 3 sec hold B, staggered tandem stance nathan lifts with 8# med ball laterally x 10R each side, prone UE raise over pball x 2 set 5R (fatigue/soreness reported in R lumbar with greater R UE movement), prone over mat with feet on the ground (pillows under feet) x 2 sets 10R;. DTRs patellar and achilles diminshed L LE, R LE patella/achilles 1+ SLR (+) R LE Pt exhibits significant antalgic gait at start of session: Poor stance R LE with increased trunk flexion, left lateral trink lean, R hips shifted to the right, hesitation of R hip flexion, decreased heel strike increased weight shift to the L LE. Post lateral shift correction pt noted to leave office more upright and expressed relief of pressure in his lower back. STM/IASTM HG #2 thoracic and lumbar paraspinals in prone with two pillows under abdomen. self care HEP program. Modalities Start of session prone MHP with estim applied L4/L5 R lumbar region cross patterned in effort to increase tissue extensibility and reduce pain. Pt skin intact pre- post activity. Pt reports relief with device. Intensity set at 5.5mA with Select unit lumbar setting. Assessment: 01/19/24: Pt has been progressing along in dynamic core stabilization program. He is scheduled through 02/12/24. Pt states will be away on vacation 02/17/24-02/24/24. Pt will benefit from transition to Work Conditioning upon completion of appts here at [facility]. Pt continues to be challenged with stationary lunges but is advancing in stability and reps/ dynamic balance. Pt continues to be using med ball core strength program at home. He has not had radiating leg sx in recent days. 01/15/24: Pt able to progress to higher level of stabilization (standing/CKC/half kneel/tandem stance) was challenged with prone over pball and prone over mat (feet on floor). Positive response, fatigue in lower back/legs expressed without pain reported. Pt issued written HEP. Pt reports will be going camping using air mattress this coming weekend. Pt highly motivated for advancement. Doing well. 01/12/24: Faisal was sick last week (cancelled his appt). Today he returns with positive response and tolerance for progression of lumbar/hip/dynamic stabilization program. He continues to be challenged with half-kneeling, rising from the ground, prone hip extension and hip abduction especially on his R side. He is deconditioned and is overweight impacting his recovery. His lumbar ROM is improved but continues to have report of stretch with end range side/bending/flex/ext. No radicular sx are present. No SLR is present. Pt will benefit from continued higher level lumbar stabilization program 2x/week x 3 weeks, with goal of then transitioning transition to a work conditioning program to prepare for higher level RTW demands as he has been OOW since DOI 10/16/22. He is highly motivated and has obtained a roller/medball/equipment for home use. Please extend 2x/week x 3 weeks for his continued auth. 01/05/24: Pt expressed relief with SL open stretch/ITB stretch for the right side. Pt issued written HEP program. Pt verbalized, I feel so much more loose than when I came in. At the end of his session he states, I feel like it was the first day of football practice, the best I have felt in awhile. 01/01/24: Reimplemented use of the bike with positive response. Pt encouraged to start biking and continue a walking program consistently. 12/29/23: Pt remains sore, expresses tightness from attempted plank task last week. Reduced level of activity for ther-ex, completed estim/manual therapy in effort to reduce tissue tension and back pain. Phone communication made with Ayanna May, PA-C at [facility] for goals/progression of developing higher level stabilization over next few weeks with end goal of progressing to a Work Conditioning program. 12/25/23: Attempted to progress to higher level stabilization program with prone forearm plank. Pt. stated he had done planks before but it has been a long time. First plank attempt was able to to hold for 8 seconds and with attempt second plank began tp experience pain R lumbar (with no radiating LE sx) and therefore this tasks was DC. He continues to be unable to squat deeper depths without fatigue and soreness in his back. This trial of plank exercise caused an increase in amount of pain leading to holding off on stabilization exercises for the remainder of the visit. Followed up with STM/IASTM and ROCKTAPE to help relieve sx. Pt would benefit from more skilled therapy to progress lifting ability to prepare for higher level work demands. Pt exhibits good carryover of HEP has reported purchasing a foam roller, 6lb med ball, and yoga mat. Pt would benefit from higher level stabilization for a few weeks 2x/week x additional 3-4 weeks with progression to higher level work conditioning program. 12/22/23; Pt was fatigued and challenged with core stabilization task. Was trialed on upright bike today vs recumbent in effort to challenge trunk/LS musculature. Pt was progressed in reps to 3 sets 15R with all task. Pt joined gym discussed joint protection in regartd to avoidance of lift, overhead tasks, no leg press heavy squats. Pt would benefit from ongoing PT to progress to more challenging poisitions; quadriped was started today with (+) challenge. PLan would be to work towards standing> kneeling>half kneeling and lifting weights/box lifts. 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 No radiating SX were reported today. Fatigue in lower back and shoulders were. 12/18/23: Pt expressed fatigue/challenge with hip abduction in SL position. Pt will benefit from transition>progression from supine>prone>half-kneeling>standing dynamic core program to prepare for higher level RTW demands. Pt was issued home program to work on activities as noted above. 12/15/23: Pt was last seen in PT on 01/23/23. Since that time pt has received a series of three injections in his back. Pt presents today after seeing [facility] with new referral dated, with tentative RTW goal of 12/28/23. Pt exhibits poor core strength, decreased functional movements for kneeling, half-kneeling and rising from that position. In order to best prepare for full level RTW demands patient will be best served in education and progression of a dynamic lumbar stabilization program. Pt has been educated in progression of sx this date. Pt would also likely benefit from a lifting/work conditioning program upon completion and progression of a dynamic stabilization program. See Last reassessment note on 01/06/23. Further PT authorization was denied by . Pt was awaiting referral in pain management on 01/12/23. D/C due to lack of insurance authorization/plateaued status. 01/06/23: Pt expressing he has a new consult with pain management on Thursday, on 01/12/23. Continue traction and lumbar stabilization program. 01/02/23: Pt has attended 22 sessions of PT since start of care 11/04/22; DOI work related injury of 10/16/22. Pt presents to the office today expressing he had new onset of sudden inability to get out of bed on Thursday, which was a poor change for his mobility over the past few weeks. He expresses ongoing R LE parathesias along R lateral thigh radiating to plantar surface of heel on the R. Pt was seen by the [facility] for a follow up yesterday, was prescribed new medication indocmethacin 50mg to be taken once daily, (taken off meloxicam) continues to take gabapentin. Pt was noted to present to the office exhibiting increased lateral shift (a worsened posture he has had for the past few visits (was near neutral standing with increased trunk flexion from prior). Since time of last reassessment, pt was started on mechanical lumbar traction and has had a few sessions of this with what appeared to be overall positive gains and some centralization of his R heel sx. He expresses several hours of relief with traction in the past with recurrence of his sx. Pt has made ups/downs with start of this treatment, however traction was held today due to his worsening posture (shifted L lateral shoulder lean, R hip to the R). Pt is awaiting a consult in pain management for 01/12/23. Post session and after reviewing/re-implenting lateral shift corrective exercises/taping/tens/extension based tasks he appeared neutral in his trunk posturing. He was educated to continue performance of prone based exercises with low rep high frequency of lateral shift correction (completing these first). Pt will continue to benefit from receiving skilled PT services at a frequency of 2x/week x 6 weeks in conjunction with treatment/consult of pain management. Pt is highly compliant in his HEP and does verbalize ongoing gains/improvement/reduction in sx with traction treatment this date. Pt will benefit from ongoing PT 2x/week x 6 weeks to address impairments, implement HEP, and restore functional mobility to resume PLOF. 12/30/22: Some relief with traction reported, intermittent R heel parathesias. 12/26/22: Pt expressing some relief with lumbar traction this date, pt expressing centralization of lateral L thigh/LE. 12/23/22 Pt expressing increased lumbar back pain today, reports near constant R lateral sx. 12/22/22: Pt expressing lateral L sided thigh sx today, reports additional soreness on the bottom of his feet which could be from wearing crocs on his feet this past weekend, I feel like Im walking on concrete. (Improved post rolling out plantar fascia seated in the office today) Pt requesting to hold mechanical lumbar traction due to soreness which he stated lasted most of the weekend following last session. Its more in my back today. Pt to obtain report from [place] for [facility] to review (has not yet obtained appt with pain management). 12/16/22: Pt expressing overall improvement in back pain compared to yesterday. Holding traction treatment due to poor tolerance after four minutes. Pt encouraged for trial of hooklying position at home. Pt to see [facility] following today's visit. 12/15/22: Pt demonstrating somewhat improved tolerance for lying supine/hooklying. Pt expressing ongoing sx R thigh with intermittent radiating heel sx. Trial of mechanical traction attempted however this was stopped at 4 minutes into treatment due to reports of increasing onset of lower back pain. Pt to see [facility] tomorrow. 12/12/22 Pt had MRI completed yesterday, reports intolerance for lying supine during screening. He continues to exhibit ongoing antalgic gait with decreased calf strength on the R LE. Today he appeared to exhibit new tolerance for p-ball positional traction and was encouraged to trial this at home through the weekend. Possible goal of trialing mechanical lumbar traction next week if positional tolerance continues. Relief reported with newly prescribed addition of gabapentin. 12/02/22 Pt exhibits worsening LE sx today, was previously obtaining relief with prone lying>IVETT however today sx unchanged with positional change. Pt to see [facility] later this morning. 12/01/22: Pt has attended 12 sessions of PT to date, exhibiting some level of plateau in his progress since start of care. Pt expressing worsening R LE sx today, reports near constant pain in his knee at start of session. He reports he is seeing the [facility] tomorrow. He continues to exhibit a SLR and is awaiting an MRI approval. Therapist is inquiring with FÁTIMA about potential of trialing another steroid taper in effort to ease inflammation/ R LE sx. 11/28/22 Pt reports significant sleep disturbance, reports use of meloxicam with limited gains. Therapist is inquiring with [facility]'s Physician Neighborhood Planner opinion of a prescribing a second round of a steroid taper to address inflammation duet to ongoing severity and start of plateauing status related to positional tolerance? Pt did express some relief with initial steroid taper but also did express some mild side effects so unsure of provider has alternative treatment to trial? Pt expressing intolerance for tylenol>ibuprofen with history of stomach upset. Pt exhibits antalgic gait with decreased stance R LE. Some questionable improvement in R calf raise with UE support compared to start of care. Pt has appeared to exhibit some limited centralization of sx, today reports anterior/posterior R thigh sx, no longer denies sx below the knee. Held manual therapy and taping this date (completed yesterday) due to slight skin irritation noted today with pt removing at home prior to session. Outline of tape present on skin with reddened appearance, no cut or open areas. Pt to see [facility] on 12/02/22. Pt reports has not received any update or approval regarding MRI for his lumbar spine. Pt intolerance for trial of supine/hooklying. Pt is not a candidate for mechanical lumbar traction at this time due to severity of R LE sx with attempt of position. Long axis distraction was attempted a few visits ago however poor response was exhibibited. Some short term limited relief with prone>extension based exercises. Poor tolerance for flexion. SLR persists R LE. Thank you for this referral. 11/27/22: Pt exhibits erythema response to thoracic paraspinals with IASTM, some tenderness reported with manual pressure to R lumbar with IASTM (reduced pressure with positive outcomes). 11/25/22 Pt expressing R LE sx to the lateral thigh this date, therapist encouraged low impact gentle walking program on soft track material in effort to ease sx. Pt benefited from cues of reducing trunk flexion with seated stretches this date (use of table vs pball due to degree of flexion). Awaiting approval for MRI. Pt continues to exhibit neural tension sx, reports taking meloxicam with limited relief. 11/21/22: Pt was seen by [facility] provider, reports an MRI has been ordered. Pt remains OOW. Trial of long axis distraction was completed (increased sx in lumbar x 3 minutes) so this was D/C. Trial of L SL for a few minutes eased sx proximal thigh R LE. Pt encouraged to trial this activity at home. Pt was educated re: goal of centralization vs peripheralization with task. 11/18/22: Pt had poor tolerance for sitting/trial of flexion tasks today compared to last week, bike was not tolerated, 3 minutes into activity (+) radiating LE sx to height of ankle (compared to last week was able to do). He does present with antalgic gait R LE decreased stance, with improvement no longer presents with lateral shift. Pt reports he was stuck in traffic over the weekend, stuck sitting for several hours from [place] traffic which could have flared micha sx. Pt encouraged to stretch HS in standing as long as not symptomatic in the spine. (+) SLR persists. Pt will continue to benefit from skilled PT services at a frequency of 3x/week x 6 additional weeks as of today (awaiting updated script from [facility]), he continues use of tylenol 2x daily which eases his sx. Please advise and update a new prescription for support of ongoing PT. THank you for this referral. PT NS for appt 11/17/22 at 8:00am. A VM was left on patient's phone requesting callback. Patient is usually always on time for appts so this is unlike him (pt did report feeling achy all over last session so therapist was questioning if patient is sick). 11/17/22: Pt has attended 6 session of PT to date (including initial intake with start of care 11/04/22, DOI 10/16/22. Since starting therapy, patient has demonstrated some improvement in posturing (intially R SB and flexed) now more consistently erect and neutral spine. He exhibits a reduction/centralization in his R LE sx (from height of heel to height of knee). He has responded positively to prone series of exercise program. Last session, he came in reporting global body aches but denied presence of a fever. He continues to express central lumbar and expresses radiating R lateral hip sx which. Pt continues to express at (+) SLR, decreased R LE DTRS, and has weakness in his R calf. Pt would likely benefit from referral to supervisory it specialist and or MRI imaging to assess status due to ongoing severity, amount of load/ mechanism of injury, and observed weakness in R LE. Pt reports load he flexed with was approx 400lbs at time of injury. Pt has been very compliant with his HEP. He reports use of tylenol twice daily (poor tolerance for ibuprofen due to stomach upset). 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 11/14/22 Pt presents expressing increased soreness/ache overall today. Decreased tolerance for flexion stretches, held bike today due to this. Pt encouraged to limit sitting, complete walking, prone series HEP at home through the weekend. 11/11/22: Improving tolerance for mobility, initiated the bike today with positive response and good tolerance. 11/10/22: Pt expressing worsening lower back pain in general yesterday was 8/10, today reports somewhat better /10. Pt expressing centralization of sx to upper region of R thigh, verbalizes improved ability to move R ankle and push off calf with ambulation post manual/ TENS/prone series. Pt encouraged to iniitated core stabilization with ambulation and swing arms when ambulating to reduce tissue tension in upper body. Improved ability to perform a R sided calf raise today post treatment session completed. Trialed an alternative form of ROCKTAPE (fanning approach for R LQ in effort to increase tissue extensibility/ease sx. Pt exhibits (+) sx neural tension, presents with significant trunk flexion, R side lateral shift, antalgic gait reports has been experiencing R LE sx radiating to R thigh>R knee in recent days. Correction attempted for lateral shift in office (L hip toward side of wall with pillow) with good outcomes (added for HEP). Pt exhibits weakness of heel raise on the R LE and has diminished patellar>achilles reflexes on the R LE. Pt encouraged to continue walking short distances often, perform prone series short reps repeatedly throughout the day, and refrain from seated flexion positions. Encouraged hydration, low reps of stretches, and educated re: monitoring LE sx with exercises. Some short term relief is reported with taping. Seated trunk flexion stretches were shown and added for program. (educated to avoid standing trunk flexion). Pt to expresses he has been taking 500mg Tylenol 2x/ daily (due to stomach upset with ibuprofen). Remains OOW. To see [facility] again on 11/18/22 (reports being seen yesterday). Due to (+) SLR, mechanism of load with injury, and weakness in R LE patient may benefit from MRI to screen for HNP/cause of lumbar radiculopathy. Brief positional trial of flexion was attempted in office with feet up on [facility] in [facility] to assess response but was D/C due to surge of sx in lumbar with attempt. Concern for disc herniation of L5/S1 based on examination. 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 Pt was educated re: findings of goals this date PT Plan: Progress higher level stabilization and work conditioning. Half-kneeling> fwbd/backward lunges Short Term Goals: 1. Negative lumbar instability test in prone. (IR: positive testing). 2. Strength hip abd 5/5. (IR 4+/5 compensation hip flexion. 3. Be able to plank 30 seconds with good core stab/control with sx <2/10 L/S. 4. RTW with good carryover lifting/mechanics. 5. Rise from the floor holding an 10lb weight from a half kneel position from both his R and left side without UE support. Retirement Goals: 1. Strength erector spinae 5/5. 2. RTW full duty with good joint protection/mechanics. 3. Strength R planfar flexion 5/5 on R LE. IR <5/5). 4. Strength hip abduction 5/5 bilaterally. 5. Strength hip extension 5/5 bilaterally. Electronically signed by: Merry Stanley PT, AWAT
--- NOTE | 2024-01-29 12:25 | MHC.PT.OD ---
[facility] [place] Office [place] Office [place] Office [address] Lucas Tavera [address] [phone] F: [phone] F: [phone] F: [phone] F: [phone] Physical Therapy Daily Note Diagnosis: Right lumbar radiculopathy PT eval and treat, date sahil referral 10/27/22, 1-3x/week x 3-12 weeks signed by Ayanna Osborne PA-C New order 12/29/23: DJD HNP L5/S1 date if injury 10/16/22 Much improved : Pre return to work PT 1 year OOW Eval and treat; frequency 2-3x/week x [address] Gaytan 12/29 Date of Surgery: Date of Evaluation: 11/04/22 Date of Treatment: 01/29/24 Treatments to Date: Cancellations to Date: No Shows to Date: Authorized Visits: Insurance End Date: Precautions/ Contraindications:Hx work injury DOI 10/16/22 Subjective: States he is feeling much better today. Eager to progress himself. Pain Score and Location: 6 R SIDE LB, Objective Flowsheet: Tests & Measures Lumbar ROM AROM Flexion to midshin stretch when flexing but sx catch upon return from on R side. Ext positive response to stretch and reports doing prn, sidebending to height of knee- mild sx with R side-bending end range R lumbar Movement assessment: L hip flexion 5/5/, R hip flexion 5-/5 Prone hip extension L 4+/5, R 4-/5, L hip abd 4+/5, R hip abd 4/5, Pt challenged with half-kneeling able to rise from the floor but asymmetry of pelvis noted from the right compared to the left; Tandem split squat (+) LOB on the right compared to L, squat able to perform with weakness expressed with more narrow leno sewer, pt unable to perform R SLS without LOB, L SLS fair stability <10 seconds. Can bridge but has pain with end range with prolonged hold. (+) Asymmetry of pelvis noted with bridge (R hip drops). Quadriped: Unable to maintain neutral pelvis without dropping R hip. Exercises Seated on [employer] bike seat #15 seat depth with MHP applied to L/S start of session x 10 minutes. Standing simbas 8# med ball overhead raise x 3 sets 10R with staggered> squat stance, half-kneel rise x 3 sets 5R completed bilaterally, prone hip extension over pball x 2 sets 10R on L LE, at 8 reps on R took a break and then finished 2 reps, I can tell its stronger than the last time we tried these. Standing L SB stretch for R lateral trunk lean, standing hip extension modified stretch in standing for R LE, seated trunk flexion stretches from chair fwd>laterally x 5R each. DTRs patellar and achilles diminshed L LE, R LE patella/achilles 1+ SLR (+) R LE Pt exhibits significant antalgic gait at start of session: Poor stance R LE with increased trunk flexion, left lateral trink lean, R hips shifted to the right, hesitation of R hip flexion, decreased heel strike increased weight shift to the L LE. Post lateral shift correction pt noted to leave office more upright and expressed relief of pressure in his lower back. STM/IASTM HG #2 thoracic and lumbar paraspinals in prone with two pillows under abdomen. self care HEP program. Modalities NO TENS Assessment: 01/29/24: Pt progressing in his level of stabilization, reps/ tasks. Expresses he feels gain and greater ability to rising from the floor than before. Expresses he feels his legs are stronger and does not have pain in his back. Positive gain with stretches. Pt has 2 appts remaining under current auth. Pt encouraged to keep with stretching program daily to ease sx. Pt will benefit from progression of tapering frequency 1x/week x 2 more weeks. Pt to see Work COnnection on 02/15/24. 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 01/26/24: Pt presents to the office in his new sneakers, expressing more soreness in his back, reports a lot of tossing and turning last night; (states he is looking into a new mattress/bed). Pt requested use of TENS with MHP pre activity today. He also completed upright bike which he stated did challenge his back/leg more today. He is moving along towards transition to Work Conditioning. He has been encouraged to keep with flexibility program in addition to his stabilization tasks. PT Plan: Progress higher level stabilization and work conditioning. Half-kneeling> fwbd/backward lunges [ End ] Short Term Goals: 1. Negative lumbar instability test in prone. (IR: positive testing). 2. Strength hip abd 5/5. (IR 4+/5 compensation hip flexion. 3. Be able to plank 30 seconds with good core stab/control with sx <2/10 L/S. 4. RTW with good carryover lifting/mechanics. 5. Rise from the floor holding an 10lb weight from a half kneel position from both his R and left side without UE support. [ End ] Senior Living Goals: 1. Strength erector spinae 5/5. 2. RTW full duty with good joint protection/mechanics. 3. Strength R planfar flexion 5/5 on R LE. IR <5/5). 4. Strength hip abduction 5/5 bilaterally. 5. Strength hip extension 5/5 bilaterally. Electronically signed by: Merry Stanley, PT, DPT
--- NOTE | 2024-02-26 12:10 | MHC.PT.DC ---
[facility] [place] Office [place] Office [place] Office [address] Lucas Tavera [address] [phone] F: [phone] F: [phone] F: [phone] F: [phone] Physical Therapy Discharge Report Diagnosis: Right lumbar radiculopathy PT eval and treat, date sahil referral 10/27/22, 1-3x/week x 3-12 weeks signed by Ayanna Osborne PA-C New order 12/29/23: DJD HNP L5/S1 date if injury 10/16/22 Much improved : Pre return to work PT 1 year OOW Eval and treat; frequency 2-3x/week x [address] Gaytan 12/29 Date of Surgery: Date of Evaluation: 11/04/22 Date of Discharge: 01/23/23 Treatments to Date: Cancellations to Date: No Shows to Date: Discharge Status: Discharge Summary: 02/26/24: Pt presents for reassessment today. He reports 13lb weight loss following history of acute hospitalization 02/09-/02/10 for intestinal issue ripping per pt- reports was hiatal hernia was irritated and was placed on omeprazole. He has met all STG/LTG with outpatient PT therapy for his back. He has advanced his ability to now rise up and down from the floor since last reassessment. He has increased his hip ext/core and hip abd since last reassessment. He denies radiating sx into his legs and has started exercising at home obtaining [employer] for routine. He can complete stationary lunges and has been doing the bike with good outcomes. He has an advanced lumbar stab program and can bridge with good tolerance. Pt is scheduled to start Work Conditioning next week. He remains OOW at this time. Pt states he will be seeing his PCP for an MD follow up next week. Pt DC pt to I HEP. He has been encouraged to stick with his current walking program, exercise program, and flexibility. He continues to have tight HS, mildly tight hip ER, and lumbar/thoracic paraspinals but is now I with a HEP program. DC to I HEP. Lumbar instability test is negative but his strength hip ext R 4/5 vs L 5/5. L hip flexion 5/5, R hip flexion 5/5, L hip abd 4+/5, R hip abd 4+/5, knee ext 5/5 B. He is able to rise from a half kneel (greater difficulty with R knee in front (no UE required) no pain reported. He is able to perform heel raise with symmetry. Reciprocal gait with no significant deviations. He reports goal of keeping with weight loss program to further accelerated his current status. 02/12/24: PT NS for his last appt at 9:00 which is not consistent with Faisal history of past attendance in PT. Phone call was placed to patient, patient informed staff that he was hospitalized x 3 days for an intestinal burst issue. He was home resting. Design Engineering Specialist to be contacted with information of status. Electronically signed by: Merry Stanley, PT, DPT Please sign and return to therapist. Thank you for your referral.
== END 2024-04-19 13:32 ==
LOC: HO.PTWFD 09:00
PROVIDERS: Absent Provider Internal Medicine; PCP Nurse Practitioner Family; Visit Provider Physician Assistant Medical
DX: M54.16 Radiculopathy, lumbar region (principal)
CPT/HCPCS: 97012; 97014; 97035; 97110; 97140; 97150; 97162; 97164; 97535

== ENCOUNTER → 2024-03-14 09:28 | Outpatient (BNVA) | payer OTHER, SELFPAY | PROVIDERS: Visit Provider Internal Medicine | DX: M51.369 Other intervertebral disc degeneration, lumbar region without mention of lumbar back pain or lower extremity pain (principal) | CPT/HCPCS: 99213 ==

== ENCOUNTER → 2024-04-11 11:19 | Outpatient (BNVA) | payer OTHER, SELFPAY | PROVIDERS: Visit Provider Internal Medicine | DX: M51.26 Other intervertebral disc displacement, lumbar region (principal) | CPT/HCPCS: 99213 ==